=== PATIENT | female | born 1960 | race Caucasian/White ===

== ENCOUNTER 2018-03-12 11:44 | Emergency (ER) | payer MEDICARE, OTHER, SELFPAY ==
[2018-03-12 11:54] VITALS: BP 128/85; PULSE 79; RESP 15; TEMP 37; O2SAT 96; BMI 32.5
--- NOTE | 2018-03-12 12:06 | ED.CHESTPAIN ---
HPI - Chest Pain <Alisson Anderson PA-C - Last Filed: 03/12/18 14:11> General Chief Complaint: Chest Pain Stated Complaint: THINKS THERE'S A CLOT IN LEFT LEG Time Seen by Provider: 03/12/18 12:06 Source: patient Mode of arrival: ambulatory Limitations: no limitations History of Present Illness HPI narrative: This 57-year-old female comes in today mainly due to worsening of her chronic leg pain on the left side. She states she has had pain in both lower extremities ongoing for about 15 years, for the last several feels like band like pain around her calves. In the last few days to few weeks however, she states that the pain in her left calf has been worse, and also in the [place]. She has not noted new swelling. She states that the pain is fairly constant, may be somewhat worse with walking. She states that she has been walking on trails and on the beach more, but pain had worsened before that. Denies any falls or other trauma. She denies any dyspnea. No recent surgery. Last extended travel was several months ago. She states she has had sinus symptoms for years and has had a cold with some cough but no wheeze for several weeks. She has not had fever. She states she has had left shoulder and arm pain ongoing for at least a month. She states that this occurs when she is sitting. She cannot say how long it lasts, maybe up to an hour. 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 It is not exertional. She points to the left lateral bicep area as the pain source, and states it radiates up into her shoulder and into the chest at times. She denies any dyspnea with this. She denies any lightheadedness, nausea, abdominal pain, sweats, or other new symptoms correlating with that. She states that in the left agu[place]era she has noticed increase in a rash over the last few days which also concerned her. Notice is much more when sitting in front of the heater. She does admit that she has had problems with left hip pain in the past as well and has done physical therapy. Again denies any new injury Related Data Previous Rx's Medication Instructions Recorded meloxicam 7.5 mg PO DAILY #10 tab 03/12/18 Allergies Allergy/AdvReac Type Severity Reaction Status Date / Time ciprofloxacin [From CIPRO] Allergy Unknown Verified 03/12/18 11:54 Review of Systems <Alisson Anderson PA-C - Last Filed: 03/12/18 14:11> Review of Systems All systems reviewed & are unremarkable except as noted in HPI and below PFSH <MADELINE Painter Last Filed: 03/12/18 14:11> Comment: Patient also uses [facility] regularly Exam <MADELINE Painter Last Filed: 03/12/18 14:11> Narrative Exam Narrative: GENERAL APPEARANCE: Patient sitting comfortably, in no distress. HEENT: PERRL, EOMI, normal oropharynx NECK/THYROID: Neck supple, no JVD. LUNGS: Coarse breath sounds with some faint expiratory wheezes, no crackles CHEST: No TTP HEART: Regular rate and rhythm without murmur, normal S1, S2, no S3 or S4. ABDOMEN: Soft, NT, ND, + BS x 4 quadrants EXTREMITIES: No cyanosis or edema. Ft are warm and pink. There are numerous small varicosities bilaterally, more pronounced on the left. There is some brownish reticular skin discoloration inferior border and inferior medial to the left knee, minimal on the right. Moderate tenderness over the left calf and also over the left lateral aguilera. NEUROLOGIC: Alert and oriented, normal speech, and coordination. MS: Tender over the left lateral biceps midline and with resisted biceps range of motion Initial Vital Signs Initial Vital Signs: Vital Signs Temperature 98.6 F 03/12/18 11:54 Pulse Rate 79 03/12/18 11:54 Respiratory Rate 15 03/12/18 11:54 Blood Pressure 128/85 03/12/18 11:54 Pulse Oximetry 96 03/12/18 11:54 <Maureen Reyes DO - Last Filed: 03/13/18 14:43> Initial Vital Signs Initial Vital Signs: Vital Signs Temperature 98.6 F 03/12/18 11:54 Pulse Rate 79 03/12/18 11:54 Respiratory Rate 15 03/12/18 11:54 Blood Pressure 128/85 03/12/18 11:54 Pulse Oximetry 96 03/12/18 11:54 Scores <MADELINE Painter Last Filed: 03/12/18 14:11> PERC Score Age greater than or equal to 50 years: Yes Heart rate greater than or equal to 100 bpm: No Room Air O2 Sat less than 95%: No Unilateral leg swelling: No Recent trauma or surgery: No Hemoptysis: No Prior PE or DVT: No Hormone Use: No Total PERC Score: 1 Course <MADELINE Painter Last Filed: 03/12/18 14:11> Orders Ordered: ED Orders 03/12/18 12:23 periph venous low extrem lt Stat XR chest 1V Stat 03/12/18 12:40 Complete Blood Count AUTO DIFF Stat Comprehensive Metabolic Panel Stat D Dimer Stat Partial Thromboplastin Time Stat Prothrombin Time INR Stat Troponin & CK Cardiac Panel Stat Vital Signs - 8 hr 03/12/18 11:54 03/12/18 12:33 03/12/18 13:30 Temperature 98.6 F Pulse Rate 79 82 70 Respiratory Rate 15 26 H 15 Blood Pressure 128/85 Blood Pressure [Left Arm] 124/90 123/76 Pulse Oximetry 96 96 95 <Maureen Reyes DO - Last Filed: 03/13/18 14:43> Orders Ordered: ED Orders 03/12/18 12:23 perip venous low extrem lt Stat XR chest 1V Stat 03/12/18 12:40 Complete Blood Count AUTO DIFF Stat Comprehensive Metabolic Panel Stat D Dimer Stat Partial Thromboplastin Time Stat Prothrombin Time INR Stat Troponin & CK Cardiac Panel Stat Vital Signs - 8 hr 03/12/18 11:54 03/12/18 12:33 03/12/18 13:30 Temperature 98.6 F Pulse Rate 79 82 70 Respiratory Rate 15 26 H 15 Blood Pressure 128/85 Blood Pressure [Left Arm] 124/90 123/76 Pulse Oximetry 96 96 95 MDM - Chest Pain <MADELINE Painter Last Filed: 03/12/18 14:11> Lab Data Result diagrams: 03/12/18 12:40 03/12/18 12:40 Lab Results 03/12/18 03/12/18 03/12/18 Range/Units 12:40 12:40 12:40 WBC 13.1 H (4.5-11.0) X10^3/uL RBC 5.44 H (4.0-5.2) X10^6/uL Hgb 16.4 H (12.0-16.0) g/dL Hct 48.0 H (36-46) % MCV 88.2 (80-100) fL MCH 30.2 (26-34) PG MCHC 34.2 (30-36) % RDW 14.3 (11.6-14.8) % Plt Count 293 (150-400) X10^3/uL Neut % (Auto) 73.6 (50-75) % Lymph % (Auto) 20.4 L (25-40) % [place] % (Auto) 4.6 (3-14) % Eos % (Auto) 0.8 L (2-4) % Baso % (Auto) 0.6 (0-2) % Neut # (Auto) 9600 H (3030-3457) /uL PT 11.7 (10.1-12.7) SECONDS INR 1.1 (0.9-1.3) APTT 29 (26.4-36.2) SECONDS D-Dimer < 200 (<230) ng/mL Sodium 145 (137-145) mmol/L Potassium 4.4 (3.4-5.1) mmol/L Chloride 107 (98-107) mmol/L Carbon Dioxide 27 (22-32) mmol/L BUN 14 (7-17) mg/dL Creatinine 0.60 (0.52-1.04) mg/dL Estimated GFR > 60.0 (>60) mL/min BUN/Creatinine Ratio 23.3 H (6-22) Glucose 94 (70-100) mg/dL Calcium 9.5 (8.4-10.2) mg/dL Total Bilirubin 0.7 (0.2-1.3) mg/dL AST 27 (14-36) IU/L ALT 48 (9-52) IU/L Alkaline Phosphatase 52 (38-126) U/L Total Creatine Kinase 66 (30-135) U/L Troponin I < 0.012 (0.01-0.034) ng/mL Total Protein 7.3 (6.3-8.2) g/dL Albumin 4.4 (3.5-5.0) g/dL Globulin 2.9 (1.7-4.1) g/dL Albumin/Globulin Ratio 1.5 (1.0-2.8) Imaging Data Chest x-ray: Radiologist's impression: View Report History [address] [address] XRay Report Signed Patient: Sandra Grijalva MR#: [id number] : 1960 Acct:[id number] Age/Sex: 57 / F Date of Service: 03/12/18 Loc: ED Accession Number: [id number] Procedure: XR chest 1V Ordering Provider: Alisson Anderson P.A-C PROCEDURE: XR CHEST 1V INDICATIONS: cough, pain TECHNIQUE: One view of the chest was acquired. COMPARISON: None. FINDINGS: Surgical changes and devices: None. Lungs and pleura: No pleural effusions or pneumothorax. Lungs are clear. Mediastinum: Mediastinal contours appear normal. Heart size is normal. Bones and chest wall: No suspicious bony lesions. Overlying soft tissues appear unremarkable. IMPRESSION: Negative chest. No acute cardiopulmonary process is evident. Dictated by: Ronald Raymundo M.D. on 03/12/2018 at 11:52 Approved by: Ronald Raymundo M.D. on 03/12/2018 at 11:55 ECG Data Attestation: I personally reviewed and interpreted this ECG as follows: (Normal sinus rhythm with rate 68) Prior ECG tracings: not available for review <Maureen Reyes DO - Last Filed: 03/13/18 14:43> Lab Data Attestation: I reviewed the patient's lab results. Lab Results 03/12/18 03/12/18 03/12/18 Range/Units 12:40 12:40 12:40 WBC 13.1 H (4.5-11.0) X10^3/uL RBC 5.44 H (4.0-5.2) X10^6/uL Hgb 16.4 H (12.0-16.0) g/dL Hct 48.0 H (36-46) % MCV 88.2 (80-100) fL MCH 30.2 (26-34) PG MCHC 34.2 (30-36) % RDW 14.3 (11.6-14.8) % Plt Count 293 (150-400) X10^3/uL Neut % (Auto) 73.6 (50-75) % Lymph % (Auto) 20.4 L (25-40) % [place] % (Auto) 4.6 (3-14) % Eos % (Auto) 0.8 L (2-4) % Baso % (Auto) 0.6 (0-2) % Neut # (Auto) 9600 H (8924-0643) /uL PT 11.7 (10.1-12.7) SECONDS INR 1.1 (0.9-1.3) APTT 29 (26.4-36.2) SECONDS D-Dimer < 200 (<230) ng/mL Sodium 145 (137-145) mmol/L Potassium 4.4 (3.4-5.1) mmol/L Chloride 107 (98-107) mmol/L Carbon Dioxide 27 (22-32) mmol/L BUN 14 (7-17) mg/dL Creatinine 0.60 (0.52-1.04) mg/dL Estimated GFR > 60.0 (>60) mL/min BUN/Creatinine Ratio 23.3 H (6-22) Glucose 94 (70-100) mg/dL Calcium 9.5 (8.4-10.2) mg/dL Total Bilirubin 0.7 (0.2-1.3) mg/dL AST 27 (14-36) IU/L ALT 48 (9-52) IU/L Alkaline Phosphatase 52 (38-126) U/L Total Creatine Kinase 66 (30-135) U/L Troponin I < 0.012 (0.01-0.034) ng/mL Total Protein 7.3 (6.3-8.2) g/dL Albumin 4.4 (3.5-5.0) g/dL Globulin 2.9 (1.7-4.1) g/dL Albumin/Globulin Ratio 1.5 (1.0-2.8) ECG Data Attestation: I personally reviewed and interpreted this ECG as follows: Prior ECG tracings: not available for review Interpretation: Sinus rhythm rate 68 T-wave inversion noted in lead 3 no other leads no ST elevations or depressions. No priors to compare. Discharge Plan Departure Patient Disposition: Home Clinical Impression: Lower extremity pain, Bicipital tendinitis of left shoulder Discharge Date/Time: 03/12/18 14:01 Interventions: ED Discharge Assessment Last Done: 03/12/18 14:00 Instructions: Shoulder Tendinopathy, Chronic Venous Insufficiency Activity Restrictions/Additional Instructions: I have given you information on chronic pain problems, since from what you described to me I think this may be the source of at least some of your chronic pain. Please talk with your new PCP about whether further testing, such as an ultrasound of the veins, may be helpful. Please elevate your legs above your heart when you are sitting or resting as this may help with pain. You may wish to try some compression stockings again, perhaps just the commercial pest control representative knee high type from the drugstore, which may also help with comfort. I think that your arm and chest pain is likely from a tendon problem in her biceps. This could also be related to the calcium deposits and issues that you had with your shoulder previously. I have given you a small prescription of low-dose meloxicam, and anti-inflammatory to try to see if this helps with pain without upsetting your stomach. Return as we talked about if you have any acutely worsening symptoms Prescriptions: New meloxicam 7.5 mg tablet 7.5 mg PO DAILY Qty: 10 RF: 0 Referrals: Charly Agarwal MD [Non-Staff] -
--- NOTE | 2018-03-12 12:23 | DI.RAD.S_ITS ---
PROCEDURE: XR CHEST 1V INDICATIONS: cough, pain TECHNIQUE: One view of the chest was acquired. COMPARISON: None. FINDINGS: Surgical changes and devices: None. Lungs and pleura: No pleural effusions or pneumothorax. Lungs are clear. Mediastinum: Mediastinal contours appear normal. Heart size is normal. Bones and chest wall: No suspicious bony lesions. Overlying soft tissues appear unremarkable. IMPRESSION: Negative chest. No acute cardiopulmonary process is evident. Dictated by: Ronald Raymundo M.D. on 03/12/2018 at 11:52 Approved by: Ronald Raymundo M.D. on 03/12/2018 at 11:55
--- NOTE | 2018-03-12 12:27 | PC.NURSE ---
Patient reports 15+ year history of bilateral leg pain. Has been given compression stockings in the past to try for pain. Over last 2 weeks pain in lower legs more frequent, keeping her up at night. New discoloration to left lower leg just below knee. Reports new left sided chest pain and left arm pain intermittently. Can't make pain better or worse.
--- NOTE | 2018-03-12 12:29 | ED_ITS ---
HPI - Chest Pain <Alisson Anderson PA-C - Last Filed: 03/12/18 14:11> General Chief Complaint: Chest Pain Stated Complaint: THINKS THERE'S A CLOT IN LEFT LEG Time Seen by Provider: 03/12/18 12:06 Source: patient Mode of arrival: ambulatory Limitations: no limitations History of Present Illness HPI narrative: This 57-year-old female comes in today mainly due to worsening of her chronic leg pain on the left side. She states she has had pain in both lower extremities ongoing for about 15 years, for the last several feels like band like pain around her calves. In the last few days to few weeks however, she states that the pain in her left calf has been worse, and also in the aguil[place]. She has not noted new swelling. She states that the pain is fairly constant, may be somewhat worse with walking. She states that she has been walking on trails and on the beach more, but pain had worsened before that. Denies any falls or other trauma. She denies any dyspnea. No recent surgery. Last extended travel was several months ago. She states she has had sinus symptoms for years and has had a cold with some cough but no wheeze for several weeks. She has not had fever. She states she has had left shoulder and arm pain ongoing for at least a month. She states that this occurs when she is sitting. She cannot say how long it lasts, maybe up to an hour. 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 It is not exertional. She points to the left lateral bicep area as the pain source , and states it radiates up into her shoulder and into the chest at times. She denies any dyspnea with this. She denies any lightheadedness, nausea, abdominal pain, sweats, or other new symptoms correlating with that. She states that in the left aguilera she has noticed increase in a rash over the last few days which also concerned her. Notice is much more when sitting in front of the heater. She does admit that she has had problems with left hip pain in the past as well and has done physical therapy. Again denies any new injury Related Data Previous Rx's Medication Instructions Recorded meloxicam 7.5 mg PO DAILY #10 tab 03/12/18 Allergies Allergy/AdvReac Type Severity Reaction Status Date / Time ciprofloxacin [From CIPRO] Allergy Unknown Verified 03/12/18 11:54 Review of Systems <Alisson Anderson PA-C - Last Filed: 03/12/18 14:11> Review of Systems All systems reviewed & are unremarkable except as noted in HPI and below PFSH <MADELINE Painter Last Filed: 03/12/18 14:11> Comment: Patient also uses [facility] regularly Exam <MADELINE Painter Last Filed: 03/12/18 14:11> Narrative Exam Narrative: GENERAL APPEARANCE: Patient sitting comfortably, in no distress. HEENT: PERRL, EOMI, normal oropharynx NECK/THYROID: Neck supple, no JVD. LUNGS: Coarse breath sounds with some faint expiratory wheezes, no crackles CHEST: No TTP HEART: Regular rate and rhythm without murmur, normal S1, S2, no S3 or S4. ABDOMEN: Soft, NT, ND, + BS x 4 quadrants EXTREMITIES: No cyanosis or edema. Ft are warm and pink. There are numerous small varicosities bilaterally, more pronounced on the left. There is some brownish reticular skin discoloration inferior border and inferior medial to the left knee, minimal on the right. Moderate tenderness over the left calf and also over the left lateral aguilera. NEUROLOGIC: Alert and oriented, normal speech, and coordination. MS: Tender over the left lateral biceps midline and with resisted biceps range of motion Initial Vital Signs Initial Vital Signs: Vital Signs Temperature 98.6 F 03/12/18 11:54 Pulse Rate 79 03/12/18 11:54 Respiratory Rate 15 03/12/18 11:54 Blood Pressure 128/85 03/12/18 11:54 Pulse Oximetry 96 03/12/18 11:54 <Maureen Reyes DO - Last Filed: 03/13/18 14:43> Initial Vital Signs Initial Vital Signs: Vital Signs Temperature 98.6 F 03/12/18 11:54 Pulse Rate 79 03/12/18 11:54 Respiratory Rate 15 03/12/18 11:54 Blood Pressure 128/85 03/12/18 11:54 Pulse Oximetry 96 03/12/18 11:54 Scores <MADELINE Painter Last Filed: 03/12/18 14:11> PERC Score Age greater than or equal to 50 years: Yes Heart rate greater than or equal to 100 bpm: No Room Air O2 Sat less than 95%: No Unilateral leg swelling: No Recent trauma or surgery: No Hemoptysis: No Prior PE or DVT: No Hormone Use: No Total PERC Score: 1 Course <MADELINE Painter Last Filed: 03/12/18 14:11> Orders Ordered: ED Orders 03/12/18 12:23 periph venous low extrem lt Stat XR chest 1V Stat 03/12/18 12:40 Complete Blood Count AUTO DIFF Stat Comprehensive Metabolic Panel Stat D Dimer Stat Partial Thromboplastin Time Stat Prothrombin Time INR Stat Troponin & CK Cardiac Panel Stat Vital Signs - 8 hr 03/12/18 11:54 03/12/18 12:33 03/12/18 13:30 Temperature 98.6 F Pulse Rate 79 82 70 Respiratory Rate 15 26 H 15 Blood Pressure 128/85 Blood Pressure [Left Arm] 124/90 123/76 Pulse Oximetry 96 96 95 <Maureen Reyes DO - Last Filed: 03/13/18 14:43> Orders Ordered: ED Orders 03/12/18 12:23 perip venous low extrem lt Stat XR chest 1V Stat 03/12/18 12:40 Complete Blood Count AUTO DIFF Stat Comprehensive Metabolic Panel Stat D Dimer Stat Partial Thromboplastin Time Stat Prothrombin Time INR Stat Troponin & CK Cardiac Panel Stat Vital Signs - 8 hr 03/12/18 11:54 03/12/18 12:33 03/12/18 13:30 Temperature 98.6 F Pulse Rate 79 82 70 Respiratory Rate 15 26 H 15 Blood Pressure 128/85 Blood Pressure [Left Arm] 124/90 123/76 Pulse Oximetry 96 96 95 MDM - Chest Pain <MADELINE Painter Last Filed: 03/12/18 14:11> Lab Data Result diagrams: 03/12/18 12:40 03/12/18 12:40 Lab Results 03/12/18 03/12/18 03/12/18 Range/Units 12:40 12:40 12:40 WBC 13.1 H (4.5-11.0) X10^3/uL RBC 5.44 H (4.0-5.2) X10^6/uL Hgb 16.4 H (12.0-16.0) g/dL Hct 48.0 H (36-46) % MCV 88.2 (80-100) fL MCH 30.2 (26-34) PG MCHC 34.2 (30-36) % RDW 14.3 (11.6-14.8) % Plt Count 293 (150-400) X10^3/uL Neut % (Auto) 73.6 (50-75) % Lymph % (Auto) 20.4 L (25-40) % [place] % (Auto) 4.6 (3-14) % Eos % (Auto) 0.8 L (2-4) % Baso % (Auto) 0.6 (0-2) % Neut # (Auto) 9600 H (6659-6048) /uL PT 11.7 (10.1-12.7) SECONDS INR 1.1 (0.9-1.3) APTT 29 (26.4-36.2) SECONDS D-Dimer < 200 (<230) ng/mL Sodium 145 (137-145) mmol/L Potassium 4.4 (3.4-5.1) mmol/L Chloride 107 (98-107) mmol/L Carbon Dioxide 27 (22-32) mmol/L BUN 14 (7-17) mg/dL Creatinine 0.60 (0.52-1.04) mg/dL Estimated GFR > 60.0 (>60) mL/min BUN/Creatinine Ratio 23.3 H (6-22) Glucose 94 (70-100) mg/dL Calcium 9.5 (8.4-10.2) mg/dL Total Bilirubin 0.7 (0.2-1.3) mg/dL AST 27 (14-36) IU/L ALT 48 (9-52) IU/L Alkaline Phosphatase 52 (38-126) U/L Total Creatine Kinase 66 (30-135) U/L Troponin I < 0.012 (0.01-0.034) ng/mL Total Protein 7.3 (6.3-8.2) g/dL Albumin 4.4 (3.5-5.0) g/dL Globulin 2.9 (1.7-4.1) g/dL Albumin/Globulin Ratio 1.5 (1.0-2.8) Imaging Data Chest x-ray: Radiologist's impression: View Report History [address] [address] XRay Report Signed Patient: Sandra Grijalva MR#: [id number] : 1960 Acct:[id number] Age/Sex: 57 / F Date of Service: 03/12/18 Loc: ED Accession Number: [id number] Procedure: XR chest 1V Ordering Provider: Alisson Anderson P.A-C PROCEDURE: XR CHEST 1V INDICATIONS: cough, pain TECHNIQUE: One view of the chest was acquired. COMPARISON: None. FINDINGS: Surgical changes and devices: None. Lungs and pleura: No pleural effusions or pneumothorax. Lungs are clear. Mediastinum: Mediastinal contours appear normal. Heart size is normal. Bones and chest wall: No suspicious bony lesions. Overlying soft tissues appear unremarkable. IMPRESSION: Negative chest. No acute cardiopulmonary process is evident. Dictated by: Ronald Raymundo M.D. on 03/12/2018 at 11:52 Approved by: Ronald Raymundo M.D. on 03/12/2018 at 11:55 ECG Data Attestation: I personally reviewed and interpreted this ECG as follows: (Normal sinus rhythm with rate 68) Prior ECG tracings: not available for review <Maureen Reyes DO - Last Filed: 03/13/18 14:43> Lab Data Attestation: I reviewed the patient's lab results. Lab Results 03/12/18 03/12/18 03/12/18 Range/Units 12:40 12:40 12:40 WBC 13.1 H (4.5-11.0) X10^3/uL RBC 5.44 H (4.0-5.2) X10^6/uL Hgb 16.4 H (12.0-16.0) g/dL Hct 48.0 H (36-46) % MCV 88.2 (80-100) fL MCH 30.2 (26-34) PG MCHC 34.2 (30-36) % RDW 14.3 (11.6-14.8) % Plt Count 293 (150-400) X10^3/uL Neut % (Auto) 73.6 (50-75) % Lymph % (Auto) 20.4 L (25-40) % [place] % (Auto) 4.6 (3-14) % Eos % (Auto) 0.8 L (2-4) % Baso % (Auto) 0.6 (0-2) % Neut # (Auto) 9600 H (9784-9691) /uL PT 11.7 (10.1-12.7) SECONDS INR 1.1 (0.9-1.3) APTT 29 (26.4-36.2) SECONDS D-Dimer < 200 (<230) ng/mL Sodium 145 (137-145) mmol/L Potassium 4.4 (3.4-5.1) mmol/L Chloride 107 (98-107) mmol/L Carbon Dioxide 27 (22-32) mmol/L BUN 14 (7-17) mg/dL Creatinine 0.60 (0.52-1.04) mg/dL Estimated GFR > 60.0 (>60) mL/min BUN/Creatinine Ratio 23.3 H (6-22) Glucose 94 (70-100) mg/dL Calcium 9.5 (8.4-10.2) mg/dL Total Bilirubin 0.7 (0.2-1.3) mg/dL AST 27 (14-36) IU/L ALT 48 (9-52) IU/L Alkaline Phosphatase 52 (38-126) U/L Total Creatine Kinase 66 (30-135) U/L Troponin I < 0.012 (0.01-0.034) ng/mL Total Protein 7.3 (6.3-8.2) g/dL Albumin 4.4 (3.5-5.0) g/dL Globulin 2.9 (1.7-4.1) g/dL Albumin/Globulin Ratio 1.5 (1.0-2.8) ECG Data Attestation: I personally reviewed and interpreted this ECG as follows: Prior ECG tracings: not available for review Interpretation: Sinus rhythm rate 68 T-wave inversion noted in lead 3 no other leads no ST elevations or depressions. No priors to compare. Discharge Plan Departure Patient Disposition: Home Clinical Impression: Lower extremity pain, Bicipital tendinitis of left shoulder Discharge Date/Time: 03/12/18 14:01 Interventions: ED Discharge Assessment Last Done: 03/12/18 14:00 Instructions: Shoulder Tendinopathy, Chronic Venous Insufficiency Activity Restrictions/Additional Instructions: I have given you information on chronic pain problems, since from what you described to me I think this may be the source of at least some of your chronic pain. Please talk with your new PCP about whether further testing, such as an ultrasound of the veins, may be helpful. Please elevate your legs above your heart when you are sitting or resting as this may help with pain. You may wish to try some compression stockings again, perhaps just the net application architect knee high type from the drugstore, which may also help with comfort. I think that your arm and chest pain is likely from a tendon problem in her biceps. This could also be related to the calcium deposits and issues that you had with your shoulder previously. I have given you a small prescription of low -dose meloxicam, and anti-inflammatory to try to see if this helps with pain without upsetting your stomach. Return as we talked about if you have any acutely worsening symptoms Prescriptions: New meloxicam 7.5 mg tablet 7.5 mg PO DAILY Qty: 10 RF: 0 Referrals: Charly Agarwal MD [Non-Staff] -
[2018-03-12 12:33] VITALS: BP 124/90; PULSE 82; RESP 26; O2SAT 96
[2018-03-12 12:52] LABS: Add Manual Diff / Slide Review NO; Basophils Percent Auto 0.6 % (0-2); Eosinophils Percent Auto 0.8 % (2-4); Hemoglobin 16.4 g/dL (12.0-16.0); Lymphocytes Percent Auto 20.4 % (25-40); Mean Corpuscular HGB Conc 34.2 % (30-36); Mean Corpuscular Hemoglobin 30.2 PG (26-34); Mean Corpuscular Volume 88.2 fL (80-100); Monocytes Percent Auto 4.6 % (3-14); Neutrophils Absolute Auto 9600 /uL (3000-5900); Neutrophils Percent Auto 73.6 % (50-75); Platelet Count 293 X10^3/uL (150-400); Red Blood Cell Count 5.44 X10^6/uL (4.0-5.2); Red Cell Distribution Width 14.3 % (11.6-14.8); White Blood Cell Count 13.1 X10^3/uL (4.5-11.0)
[2018-03-12 12:58] LABS: INR 1.1 (0.9-1.3); Prothrombin Time 11.7 SECONDS (10.1-12.7)
[2018-03-12 13:00] LABS: PTT Partial Thromboplastin Tim 29 SECONDS (26.4-36.2)
[2018-03-12 13:02] LABS: Alanine Aminotransferase 48 IU/L (9-52); Albumin 4.4 g/dL (3.5-5.0); Albumin Globulin Ratio 1.5 (1.0-2.8); Alkaline Phosphatase 52 U/L (38-126); Aspartate Aminotransferase 27 IU/L (14-36); BUN Creatinine Ratio 23.3 (6-22); Bilirubin Total 0.7 mg/dL (0.2-1.3); Blood Urea Nitrogen 14 mg/dL (7-17); Calcium 9.5 mg/dL (8.4-10.2); Carbon Dioxide 27 mmol/L (22-32); Chloride 107 mmol/L (98-107); Creatine Kinase 66 U/L (30-135); Estimated Glomerular Filt Rate > 60.0 mL/min (>60); Globulin 2.9 g/dL (1.7-4.1); Glucose 94 mg/dL (70-100); HEMOLYSIS 15 (0-50); Potassium 4.4 mmol/L (3.4-5.1); Sodium 145 mmol/L (137-145); Total Protein 7.3 g/dL (6.3-8.2)
[2018-03-12 13:14] LABS: Troponin I < 0.012 ng/mL (0.01-0.034)
[2018-03-12 13:22] LABS: D Dimer < 200 ng/mL (<230)
[2018-03-12 13:30] VITALS: BP 123/76; PULSE 70; RESP 15; O2SAT 95
== END 2018-03-12 14:01 | disposition home or self-care (01) ==
PROVIDERS: Emergency Provider Internal Medicine
DX: M79.605 Pain in left leg (principal); R07.89 Other chest pain; M75.22 Bicipital tendinitis, left shoulder
CPT/HCPCS: 71045; 80053; 82550; 82553; 84484; 85025; 85379; 85610; 85730; 93005; 93010; 93041; 99283; 99285

== ENCOUNTER → 2018-10-16 11:30 | Outpatient (CLI) | payer MEDICARE, OTHER, SELFPAY | PROVIDERS: PCP Internal Medicine; Visit Provider Internal Medicine | DX: Z12.31 Encounter for screening mammogram for malignant neoplasm of breast (principal) | CPT/HCPCS: 77063; 77067 ==

== ENCOUNTER → 2018-11-13 08:43 | Outpatient (CLI) | payer MEDICARE, OTHER, SELFPAY ==
--- NOTE | 2018-11-13 | DI.MG.S_ITS ---
BILATERAL DIGITAL DIAGNOSTIC MAMMOGRAM 3D/2D: 11/13/2018 CLINICAL: Patient reports diffuse right breast pain for the last 3 months that covers the entire right breast. Patient was reportedly hiking using walking sticks and started noticing right arm/shoulder pain originally that radiated throughout the right breast and is now radiating across the chest into the upper inner quadrant of the left breast. A clinical breast exam was reportedly done and nothing was reportedly identified per patient. Family history of breast cancer. Comparison is made to exams dated: 06/19/2017 mammogram - [facility], 03/08/2016 mammogram, 11/01/2014 mammogram, and 09/29/2014 mammogram - [facility]. The tissue of both breasts is heterogeneously dense. This may lower the sensitivity of mammography. There are stable-appearing postsurgical changes of the right breast with overlying linear scar marker. There is no underlying mammographic abnormality of the breasts bilaterally to explain patient's diffuse radiating bilateral breast pain. No significant masses, calcifications, or other findings are seen in either breast. IMPRESSION: 1) No mammographic abnormality to correlate with or explain the patient's reported diffuse bilateral breast pain. As the pain is diffuse and bilateral, a targeted diagnostic ultrasound could not be performed for further evaluation. Recommend clinical follow-up for further evaluation and management. Consider breast MRI if there is continued clinical concern. 2) There is no mammographic evidence of malignancy. Return to annual mammogram screening schedule is recommended. The patient is advised to monitor the area and to return sooner for reevaluation if she feels anything grow or change in her breasts. This exam was interpreted at Station ID: [id number]. NOTE: For mammograms, a report in lay terms will be sent to the patient. Approximately 15% of breast malignancies will not be visualized mammographically. In the management of a palpable breast mass, a negative mammogram must not discourage biopsy of a clinically suspicious lesion. Electronically Signed By: Nnamdi Chapa M.D. ecl/:11/13/2018 10:13:33 letter sent: Clinical Evaluation ACR BI-RADS Category 2: Benign Finding(s) [id number]
== END ==
PROVIDERS: PCP Internal Medicine; Visit Provider Internal Medicine
DX: R92.8 Other abnormal and inconclusive findings on diagnostic imaging of breast (principal); N64.4 Mastodynia; Z80.3 Family history of malignant neoplasm of breast
CPT/HCPCS: 77066; G0279

== ENCOUNTER → 2019-04-16 14:07 | Outpatient (CLI) | payer OTHER, SELFPAY ==
--- NOTE | 2019-04-16 | DI.US.S_ITS ---
PROCEDURE: US PELVIC COMPLETE INDICATIONS: PELVIC PAIN TECHNIQUE: Real-time scanning was performed of the pelvic organs, with image documentation. Additional endovaginal scanning was necessary due to incomplete visualization of the adnexal and endometrial structures by transabdominal scanning. COMPARISON: None. FINDINGS: Transabdominal scanning: Limited scanning through the kidneys demonstrates mild appearance of bilateral hydronephrosis. No pathologic free abdominal or pelvic fluid. Endovaginal scanning: Uterus: Uterus has been removed Ovaries: The ovaries are not visualized. IMPRESSION: 1. Ovaries are not visualized. Adnexal regions are unremarkable. 2. Bilateral hydronephrosis. As clinical indicated, abdominal ultrasound or CT pelvis may be obtained for further evaluation. Dictated by: Aicha Wilson M.D. on 04/16/2019 at 16:56 Approved by: Aicha Wilson M.D. on 04/16/2019 at 16:58
== END ==
PROVIDERS: PCP Internal Medicine; Visit Provider Internal Medicine
DX: R10.2 Pelvic and perineal pain (principal); N13.30 Unspecified hydronephrosis
CPT/HCPCS: 76830; 76856

== ENCOUNTER 2019-07-13 17:34 | Emergency (ER) | payer OTHER, SELFPAY ==
[2019-07-13 17:40] VITALS: PULSE 76; RESP 18; TEMP 36.6; O2SAT 99; BMI 27.3
[2019-07-13 19:52] VITALS: BP 162/90
[2019-07-13] MEDS: ONDANSETRON 4 MG ODT SL (19:57)
[2019-07-13 20:05] LABS: Add Manual Diff / Slide Review NO; Basophils Absolute Auto 100 /uL (0-100); Basophils Percent Auto 0.5 % (0-2); Eosinophils Absolute Auto 0 /uL (0-450); Eosinophils Percent Auto 0.2 % (2-4); Hematocrit 45.6 % (36-46); Hemoglobin 15.7 g/dL (12.0-16.0); Lymphocytes Absolute Auto 2000 /uL (1100-4500); Lymphocytes Percent Auto 18.5 % (25-40); Mean Corpuscular HGB Conc 34.4 % (30-36); Mean Corpuscular Hemoglobin 30.1 PG (26-34); Mean Corpuscular Volume 87.6 fL (80-100); Monocytes Absolute Auto 400 /uL (0-900); Monocytes Percent Auto 3.5 % (3-14); Neutrophils Absolute Auto 8200 /uL (1500-7000); Neutrophils Percent Auto 77.3 % (50-75); Platelet Count 293 X10^3/uL (150-400); Red Blood Cell Count 5.21 X10^6/uL (4.0-5.2); Red Cell Distribution Width 14.3 % (11.6-14.8); White Blood Cell Count 10.6 X10^3/uL (4.5-11.0)
[2019-07-13 20:18] LABS: Alanine Aminotransferase 26 IU/L (<35); Albumin 4.5 g/dL (3.5-5.0); Albumin Globulin Ratio 1.6 (1.0-2.8); Alkaline Phosphatase 59 U/L (38-126); Amylase 72 U/L (30-110); Aspartate Aminotransferase 24 IU/L (14-36); Bilirubin Total 0.9 mg/dL (0.2-1.3); Blood Urea Nitrogen 12 mg/dL (7-17); Calcium 9.8 mg/dL (8.4-10.2); Carbon Dioxide 26 mmol/L (22-32); Chloride 106 mmol/L (98-107); Estimated Glomerular Filt Rate > 60.0 mL/min (>60); Globulin 2.9 g/dL (1.7-4.1); Glucose 90 mg/dL (80-110); HEMOLYSIS < 15 (0-50); Lipase 110 U/L (23-300); Sodium 141 mmol/L (137-145); Total Protein 7.4 g/dL (6.3-8.2)
[2019-07-13 20:19] LABS: Magnesium 1.9 mg/dL (1.6-2.3)
[2019-07-13 20:24] LABS: UR Morphine/Opiate cutoff 300 Negative (Negative); Ur Creatinine Normal (Normal); Ur Specific Gravity Normal (Normal); Urine Amphetamines Negative (Negative); Urine Barbiturates Negative (Negative); Urine Benzodiazepines Negative (Negative); Urine Cocaine Negative (Negative); Urine MDMA Negative (Negative); Urine Methadone Negative (Negative); Urine Methamphetamines Negative (Negative); Urine Oxycodone Negative (Negative); Urine Phencyclidine Negative (Negative); Urine Tetrahydrocannabinol Positive (Negative); Urine Tricyclic Antidepressant Negative (Negative); Urine pH Normal (Normal)
[2019-07-13 20:27] LABS: RBC Urine 0-1/HPF (0-5/HPF); WBC Urine 5-10/HPF (0-5/HPF)
[2019-07-13 20:28] LABS: Amorphous Sediment Urine 1+; Bacteria Urine Few (2-10); Culture Indicated Urine Specimen Cultured; Mucus Urine 2+ (Negative); Squamous Epithelial Cell Urine 0-1 /HPF (0-5/HPF)
--- NOTE | 2019-07-13 20:40 | ED_ITS ---
HPI - Nausea/Vomiting/Diarrhea <WYATT Headley - Last Filed: 07/13/19 21:03> General Chief complaint: Nausea/Vomiting/Diarrhea Stated complaint: Nausea, Can't Keep Anything Down Time Seen by Provider: 07/13/19 18:58 Source: patient and family Mode of arrival: Ambulatory Limitations: no limitations History of Present Illness HPI Narrative: The patient is a 59-year-old female current smoker with history of UTIs who present with a chief complaint of nausea for the past year. She sta holley that she has been nauseous for over a year, but today she started vomiting. She denies any specific abdominal pain. She has not taken anything to feel better at home. She denies any fevers. She denies any chest pain or shortness of breath. She states that she has had recent urinary tract infections but that she does not have 1 right now. She states she does not have the flu. She denies any current dysuria urgency or frequency. She states that she does not need to be tested for the flu, initially declined blood pressure readings in the emergency department. She states that her last bowel movement was today and normal. She states she is passing gas. Related Data Previous Rx's Medication Instructions Recorded meloxicam 7.5 mg PO DAILY #10 tab 03/12/18 nitrofurantoin monohyd/m-cryst 100 mg PO Q12H 7 Days #14 cap 07/13/19 [Macrobid] ondansetron 4 mg PO Q6H PRN #20 tab 07/13/19 Allergies Allergy/AdvReac Type Severity Reaction Status Date / Time ciprofloxacin [From CIPRO] Allergy Unknown Verified 07/13/19 17:40 Review of Systems <WYATT Headley - Last Filed: 07/13/19 21:03> Review of Systems Narrative: GENERAL: See HPI HEENT: Denies sinus pain, ear pain, sore throat, difficulty swallowing, dizziness. RESPIRATORY: Denies dyspnea, cough, wheezing, hemoptysis, sputum. CARDIOVASCULAR: Denies chest pain, palpitations, orthopnea, edema, GASTROINTESTINAL: See HPI : See HPI MUSCULOSKELETAL: denies weakness, joint pain, or bony pain SKIN: Denies rash, skin lesions, or other NEUROLOGIC: Denies weakness, headache, numbness, change in speech, confusion, seizures, incoordination. PSYCHIATRIC: No concerning psychosocial issues. 12 point review of systems is negative except for those stated above Patient History <WYATT Headley - Last Filed: 07/13/19 21:03> Medical History Chronic pain of lower extremity, bilateral (Chronic) Migraine (Chronic) PTSD (post-traumatic stress disorder) (Chronic) Surgical History Status post breast lumpectomy (Resolved) Status post hysterectomy (Resolved) Social History Smoking Status: Current every day smoker Smoking Status: Current every day smoker alcohol intake frequency: a few times a month Substance Use Type: marijuana Exam <WYATT Headley - Last Filed: 07/13/19 21:03> Narrative Exam Narrative: GENERAL: This is a well-nourished, well-developed patient, in no acute distress HEAD: Atraumatic. Normocephalic. No temporal or scalp tenderness. EYES: Pupils equal round and reactive. Extraocular motions intact. No scleral icterus. No injection or drainage. ENT: Nose without bleeding, purulent drainage or septal hematoma. Throat without erythema, tonsillar hypertrophy or exudate. Uvula midline. Airway patent. Moist mucous membranes noted. NECK: Trachea midline. No JVD or lymphadenopathy. Supple, nontender, no me ningeal signs. CARDIOVASCULAR: Regular rate and rhythm RESPIRATORY: Clear to auscultation. Breath sounds equal bilaterally. No wheezes, rales, or rhonchi. No cough. No increased respiratory effort. No accessory muscle use. GASTROINTESTINAL: Abdomen soft, non-tender, nondistended. No hepato-spleno megaly, or palpable masses. No guarding. Active bowel sounds all 4 quadrants. No pain at McBurney's point. Negative Odell sign. EXTREMITIES: No clubbing, cyanosis, or edema. No joint tenderness, effusion, or edema noted. BACK: Nontender without deformity or crepitance. No flank tenderness. NEURO: AOx3. SKIN: No rash or erythema on visible skin Initial Vital Signs Initial Vital Signs: Vital Signs Temperature 97.9 F 07/13/19 17:40 Pulse Rate 76 07/13/19 17:40 Respiratory Rate 18 07/13/19 17:40 Pulse Oximetry 99 07/13/19 17:40 <Richie Toney DO - Last Filed: 07/14/19 03:05> Initial Vital Signs Initial Vital Signs: Vital Signs Temperature 97.9 F 07/13/19 17:40 Pulse Rate 76 07/13/19 17:40 Respiratory Rate 18 07/13/19 17:40 Pulse Oximetry 99 07/13/19 17:40 Course <WYATT Headley - Last Filed: 07/13/19 21:03> Orders Ordered: ED Orders 07/13/19 19:50 Urine Culture Stat Urine Drug Screen, Rapid Stat Urine Microscopic Stat 07/13/19 19:58 Amylase Stat Complete Blood Count AUTO DIFF Stat Comprehensive Metabolic Panel Stat Lipase Stat Magnesium Stat Discontinued Medications Nitrofurantoin Macrocrystals (Macrobid 100 Mg Capsule) 100 mg PO NOW ONE Stop: 07/13/19 20:58 Last Admin: 07/13/19 21:08 Dose: 100 mg Documented by: ZARA Ondansetron HCl (Zofran Odt) 4 mg SL NOW ONE Stop: 07/13/19 19:17 Last Admin: 07/13/19 19:57 Dose: 4 mg Documented by: ZARA Ondansetron HCl (Zofran Odt Prepack) 1 bottle MISC SEEINSTR ONE Stop: 07/13/19 20:59 Last Admin: 07/13/19 21:08 Dose: 1 bottle Documented by: ZARA Vital Signs Vital signs: Vital Signs - 8 hr 07/13/19 19:52 07/13/19 21:13 Pulse Rate 88 Respiratory Rate 12 Blood Pressure 162/90 H Blood Pressure [Right Arm] 162/90 H Pulse Oximetry 98 <Richie Toney DO - Last Filed: 07/14/19 03:05> Orders Ordered: ED Orders 07/13/19 19:50 Urine Culture Stat Urine Drug Screen, Rapid Stat Urine Microscopic Stat 07/13/19 19:58 Amylase Stat Complete Blood Count AUTO DIFF Stat Comprehensive Metabolic Panel Stat Lipase Stat Magnesium Stat Discontinued Medications Nitrofurantoin Macrocrystals (Macrobid 100 Mg Capsule) 100 mg PO NOW ONE Stop: 07/13/19 20:58 Last Admin: 07/13/19 21:08 Dose: 100 mg Documented by: ZARA Ondansetron HCl (Zofran Odt) 4 mg SL NOW ONE Stop: 07/13/19 19:17 Last Admin: 07/13/19 19:57 Dose: 4 mg Documented by: ZARA Ondansetron HCl (Zofran Odt Prepack) 1 bottle MISC SEEINSTR ONE Stop: 07/13/19 20:59 Last Admin: 07/13/19 21:08 Dose: 1 bottle Documented by: ZARA Vital Signs Vital signs: Vital Signs - 8 hr 07/13/19 19:52 07/13/19 21:13 Pulse Rate 88 Respiratory Rate 12 Blood Pressure 162/90 H Blood Pressure [Right Arm] 162/90 H Pulse Oximetry 98 MDM - Nausea/Vomiting/Diarrhea <WYATT Headley - Last Filed: 07/13/19 21:03> Lab Data Result diagrams: 07/13/19 19:58 07/13/19 19:58 Labs: Lab Results 07/13/19 07/13/19 07/13/19 Range/Units 19:50 19:50 19:58 WBC 10.6 (4.5-11.0) X10^3/uL RBC 5.21 H (4.0-5.2) X10^6/uL Hgb 15.7 (12.0-16.0) g/dL Hct 45.6 (36-46) % MCV 87.6 (80-100) fL MCH 30.1 (26-34) PG MCHC 34.4 (30-36) % RDW 14.3 (11.6-14.8) % Plt Count 293 (150-400) X10^3/uL Neut % (Auto) 77.3 H (50-75) % Lymph % (Auto) 18.5 L (25-40) % [place] % (Auto) 3.5 (3-14) % Eos % (Auto) 0.2 L (2-4) % Baso % (Auto) 0.5 (0-2) % Neut # (Auto) 8200 H (9454-1296) /uL Lymph # (Auto) 2000 (9005-4329) /uL [place] # (Auto) 400 (0-900) /uL Eos # (Auto) 0 (0-450) /uL Baso # (Auto) 100 (0-100) /uL Sodium (137-145) mmol/L Potassium (3.4-5.1) mmol/L Chloride (98-107) mmol/L Carbon Dioxide (22-32) mmol/L BUN (7-17) mg/dL Creatinine (0.52-1.04) mg/dL Estimated GFR (>60) mL/min BUN/Creatinine Ratio (6-22) Glucose (80-110) mg/dL Calcium (8.4-10.2) mg/dL Magnesium (1.6-2.3) mg/dL Total Bilirubin (0.2-1.3) mg/dL AST (14-36) IU/L ALT (<35) IU/L Alkaline Phosphatase (38-126) U/L Total Protein (6.3-8.2) g/dL Albumin (3.5-5.0) g/dL Globulin (1.7-4.1) g/dL Albumin/Globulin Ratio (1.0-2.8) Amylase (30-110) U/L Lipase (23-300) U/L Urine RBC 0-1/hpf (0-5/HPF) Urine WBC 5-10/hpf H (0-5/HPF) Ur Squamous Epith Cells 0-1 /hpf (0-5/HPF) Amorphous Sediment 1+ Urine Bacteria Few (2-10) H (None) Urine Mucus 2+ H (Negative) Ur Culture Indicated? Specimen cultured U Opiates 300ng/mL cut Negative (Negative) Ur Oxycodone Screen Negative (Negative) Urine Methadone Screen Negative (Negative) Ur Barbiturates Screen Negative (Negative) U Tricyclic Antidepress Negative (Negative) Ur Phencyclidine Scrn Negative (Negative) Ur Amphetamines Screen Negative (Negative) U Methamphetamines Scrn Negative (Negative) Ur MDMA Scrn (Ecstasy) Negative (Negative) U Benzodiazepines Scrn Negative (Negative) Urine Cocaine Screen Negative (Negative) U Marijuana (THC) Screen Positive H (Negative) 07/13/19 07/13/19 Range/Units 19:58 19:58 WBC (4.5-11.0) X10^3/uL RBC (4.0-5.2) X10^6/uL Hgb (12.0-16.0) g/dL Hct (36-46) % MCV (80-100) fL MCH (26-34) PG MCHC (30-36) % RDW (11.6-14.8) % Plt Count (150-400) X10^3/uL Neut % (Auto) (50-75) % Lymph % (Auto) (25-40) % [place] % (Auto) (3-14) % Eos % (Auto) (2-4) % Baso % (Auto) (0-2) % Neut # (Auto) (0109-3111) /uL Lymph # (Auto) (7976-4216) /uL [place] # (Auto) (0-900) /uL Eos # (Auto) (0-450) /uL Baso # (Auto) (0-100) /uL Sodium 141 (137-145) mmol/L Potassium 4.0 (3.4-5.1) mmol/L Chloride 106 (98-107) mmol/L Carbon Dioxide 26 (22-32) mmol/L BUN 12 (7-17) mg/dL Creatinine 0.60 (0.52-1.04) mg/dL Estimated GFR > 60.0 (>60) mL/min BUN/Creatinine Ratio 20.0 (6-22) Glucose 90 (80-110) mg/dL Calcium 9.8 (8.4-10.2) mg/dL Magnesium 1.9 (1.6-2.3) mg/dL Total Bilirubin 0.9 (0.2-1.3) mg/dL AST 24 (14-36) IU/L ALT 26 (<35) IU/L Alkaline Phosphatase 59 (38-126) U/L Total Protein 7.4 (6.3-8.2) g/dL Albumin 4.5 (3.5-5.0) g/dL Globulin 2.9 (1.7-4.1) g/dL Albumin/Globulin Ratio 1.6 (1.0-2.8) Amylase 72 (30-110) U/L Lipase 110 (23-300) U/L Urine RBC (0-5/HPF) Urine WBC (0-5/HPF) Ur Squamous Epith Cells (0-5/HPF) Amorphous Sediment Urine Bacteria (None) Urine Mucus (Negative) Ur Culture Indicated? U Opiates 300ng/mL cut (Negative) Ur Oxycodone Screen (Negative) Urine Methadone Screen (Negative) Ur Barbiturates Screen (Negative) U Tricyclic Antidepress (Negative) Ur Phencyclidine Scrn (Negative) Ur Amphetamines Screen (Negative) U Methamphetamines Scrn (Negative) Ur MDMA Scrn (Ecstasy) (Negative) U Benzodiazepines Scrn (Negative) Urine Cocaine Screen (Negative) U Marijuana (THC) Screen (Negative) Urine Dip Bedside Urine Glucose Negative Bedside Urine Bilirubin - Negative Bedside Urine Ketone +++ 80 Urine Specific Randall 1.030 Bedside Urine Occult Blood +/- Bedside Urine pH 6.0 Bedside Urine Protein +/- 15 Bedside Urine Urobilinogen - Negative Bedside Urine Nitrite - Negative Bedside Urine Leukocytes - Negative Esterase MDM Narrative Medical decision making narrative: The patient is a 59-year-old female who presents with a chief complaint of nausea for the past year and vomiting today. Of note she did not vomit throughout her stay in the emergency department. She is hemodynamically stable on exam, his no abdominal pain and is afebrile. She is not tachycardic, not hypotensive, has moist mucous membranes. Her abdominal lab work is grossly normal. She does have findings consistent with urinary tract infection, so I discussed starting her on Macrobid. Initially I offered Bactrim, but she states she reacts negatively to this. She was able to tolerate p.o. fluids and felt much improved after single dose of Zofran, thus I gave her take-home pack and sent a prescription in. I discussed at length the importance of coming back to the emergency department for any acute concerns such as concern of heart attack, stroke, inability keep down fluids abdominal pain with fever. Patient has no questions or concerns upon discharge and states understanding of return precautions as well as follow-up care. <Richie Toney, DO - Last Filed: 07/14/19 03:05> Lab Data Labs: Lab Results 07/13/19 07/13/19 07/13/19 Range/Units 19:50 19:50 19:58 WBC 10.6 (4.5-11.0) X10^3/uL RBC 5.21 H (4.0-5.2) X10^6/uL Hgb 15.7 (12.0-16.0) g/dL Hct 45.6 (36-46) % MCV 87.6 (80-100) fL MCH 30.1 (26-34) PG MCHC 34.4 (30-36) % RDW 14.3 (11.6-14.8) % Plt Count 293 (150-400) X10^3/uL Neut % (Auto) 77.3 H (50-75) % Lymph % (Auto) 18.5 L (25-40) % [place] % (Auto) 3.5 (3-14) % Eos % (Auto) 0.2 L (2-4) % Baso % (Auto) 0.5 (0-2) % Neut # (Auto) 8200 H (0083-9002) /uL Lymph # (Auto) 2000 (0009-1748) /uL [place] # (Auto) 400 (0-900) /uL Eos # (Auto) 0 (0-450) /uL Baso # (Auto) 100 (0-100) /uL Sodium (137-145) mmol/L Potassium (3.4-5.1) mmol/L Chloride (98-107) mmol/L Carbon Dioxide (22-32) mmol/L BUN (7-17) mg/dL Creatinine (0.52-1.04) mg/dL Estimated GFR (>60) mL/min BUN/Creatinine Ratio (6-22) Glucose (80-110) mg/dL Calcium (8.4-10.2) mg/dL Magnesium (1.6-2.3) mg/dL Total Bilirubin (0.2-1.3) mg/dL AST (14-36) IU/L ALT (<35) IU/L Alkaline Phosphatase (38-126) U/L Total Protein (6.3-8.2) g/dL Albumin (3.5-5.0) g/dL Globulin (1.7-4.1) g/dL Albumin/Globulin Ratio (1.0-2.8) Amylase (30-110) U/L Lipase (23-300) U/L Urine RBC 0-1/hpf (0-5/HPF) Urine WBC 5-10/hpf H (0-5/HPF) Ur Squamous Epith Cells 0-1 /hpf (0-5/HPF) Amorphous Sediment 1+ Urine Bacteria Few (2-10) H (None) Urine Mucus 2+ H (Negative) Ur Culture Indicated? Specimen cultured U Opiates 300ng/mL cut Negative (Negative) Ur Oxycodone Screen Negative (Negative) Urine Methadone Screen Negative (Negative) Ur Barbiturates Screen Negative (Negative) U Tricyclic Antidepress Negative (Negative) Ur Phencyclidine Scrn Negative (Negative) Ur Amphetamines Screen Negative (Negative) U Methamphetamines Scrn Negative (Negative) Ur MDMA Scrn (Ecstasy) Negative (Negative) U Benzodiazepines Scrn Negative (Negative) Urine Cocaine Screen Negative (Negative) U Marijuana (THC) Screen Positive H (Negative) 07/13/19 07/13/19 Range/Units 19:58 19:58 WBC (4.5-11.0) X10^3/uL RBC (4.0-5.2) X10^6/uL Hgb (12.0-16.0) g/dL Hct (36-46) % MCV (80-100) fL MCH (26-34) PG MCHC (30-36) % RDW (11.6-14.8) % Plt Count (150-400) X10^3/uL Neut % (Auto) (50-75) % Lymph % (Auto) (25-40) % [place] % (Auto) (3-14) % Eos % (Auto) (2-4) % Baso % (Auto) (0-2) % Neut # (Auto) (1134-0795) /uL Lymph # (Auto) (1171-4162) /uL [place] # (Auto) (0-900) /uL Eos # (Auto) (0-450) /uL Baso # (Auto) (0-100) /uL Sodium 141 (137-145) mmol/L Potassium 4.0 (3.4-5.1) mmol/L Chloride 106 (98-107) mmol/L Carbon Dioxide 26 (22-32) mmol/L BUN 12 (7-17) mg/dL Creatinine 0.60 (0.52-1.04) mg/dL Estimated GFR > 60.0 (>60) mL/min BUN/Creatinine Ratio 20.0 (6-22) Glucose 90 (80-110) mg/dL Calcium 9.8 (8.4-10.2) mg/dL Magnesium 1.9 (1.6-2.3) mg/dL Total Bilirubin 0.9 (0.2-1.3) mg/dL AST 24 (14-36) IU/L ALT 26 (<35) IU/L Alkaline Phosphatase 59 (38-126) U/L Total Protein 7.4 (6.3-8.2) g/dL Albumin 4.5 (3.5-5.0) g/dL Globulin 2.9 (1.7-4.1) g/dL Albumin/Globulin Ratio 1.6 (1.0-2.8) Amylase 72 (30-110) U/L Lipase 110 (23-300) U/L Urine RBC (0-5/HPF) Urine WBC (0-5/HPF) Ur Squamous Epith Cells (0-5/HPF) Amorphous Sediment Urine Bacteria (None) Urine Mucus (Negative) Ur Culture Indicated? U Opiates 300ng/mL cut (Negative) Ur Oxycodone Screen (Negative) Urine Methadone Screen (Negative) Ur Barbiturates Screen (Negative) U Tricyclic Antidepress (Negative) Ur Phencyclidine Scrn (Negative) Ur Amphetamines Screen (Negative) U Methamphetamines Scrn (Negative) Ur MDMA Scrn (Ecstasy) (Negative) U Benzodiazepines Scrn (Negative) Urine Cocaine Screen (Negative) U Marijuana (THC) Screen (Negative) Urine Dip Bedside Urine Glucose Negative Bedside Urine Bilirubin - Negative Bedside Urine Ketone +++ 80 Urine Specific Randall 1.030 Bedside Urine Occult Blood +/- Bedside Urine pH 6.0 Bedside Urine Protein +/- 15 Bedside Urine Urobilinogen - Negative Bedside Urine Nitrite - Negative Bedside Urine Leukocytes - Negative Esterase Discharge Plan Departure Patient Disposition: Home Clinical Impression: Nausea Urinary tract infection Qualifiers: Urinary tract infection type: site unspecified Hematuria presence: without hematuria Qualified Code(s): N39.0 - Urinary tract infection, site not specified Discharge Date/Time: 07/13/19 21:15 Instructions: DI for Urinary Tract Infection (UTI), DI for Nausea -- Adult Activity Restrictions/Additional Instructions: Today your lab work came back well, you do not have any abdominal pain on exam. You responded well to Zofran for nausea. I sent a prescription of Zofran to [facility]. We have also given you a take-home pack. Your urine is concerning for signs of infection, so I have placed you on Macrobid. There is a urine culture pending at this point time. If we have to change her antibiotic, we will call you. Please come back to the emergency department for any acute concerns such as abdominal pain with fever, concern of heart attack or stroke. Please follow-up with primary care provider in the next few days Prescriptions: New ondansetron 4 mg tablet,disintegrating 4 mg PO Q6H PRN (Reason: nausea and vomiting) Qty: 20 RF: 0 nitrofurantoin monohyd/m-cryst [Macrobid] 100 mg capsule 100 mg PO Q12H 7 Days Qty: 14 RF: 0 No Action meloxicam 7.5 mg tablet 7.5 mg PO DAILY Qty: 10 RF: 0 Referrals: Sherry Santana MD [Family Provider] - Nuvia Walters [Primary Care Provider] -
[2019-07-13] MEDS: NITROFURANTOIN ER 100 MG CAPSULE PO (21:08)
[2019-07-13] MEDS: ONDANSETRON 4 MG ODT PREPACK 1 BOTTLE MISC (21:08)
[2019-07-13 21:13] VITALS: BP 162/90; PULSE 88; RESP 12; O2SAT 98
== END 2019-07-13 21:15 | disposition home or self-care (01) ==
PROVIDERS: Emergency Provider Nurse Practitioner Family; Family Provider Internal Medicine; PCP Internal Medicine
DX: N39.0 Urinary tract infection, site not specified (principal); R11.2 Nausea with vomiting, unspecified
CPT/HCPCS: 36415; 80053; 80305; 81003; 81015; 82150; 83690; 83735; 85025; 87086; 99283

== ENCOUNTER → 2019-08-24 11:47 | Outpatient (CLI) | payer MEDICARE, OTHER, SELFPAY ==
--- NOTE | 2019-08-24 | DI.CT.S_ITS ---
PROCEDURE: CT KIDNEY URETER BLADDER (KUB) INDICATIONS: Hematuria, unspecified TECHNIQUE: Noncontrast 5 mm thick sections acquired from the diaphragms to the symphysis. 5 mm thick coronal and sagittal reformats were then performed. For radiation dose reduction, the following was used: automated exposure control, adjustment of mA and/or kV according to patient size. COMPARISON: None. FINDINGS: Image quality: Excellent. Lung bases: Lung bases are clear. Heart size is normal. Urinary system: Moderate to severe right-sided hydroureteronephrosis is seen with abrupt transition point at the mid right ureter at the level of L5. There is soft tissue attenuation (approximately 9-10 mm) seen within the lumen on image 49/2. The distal right ureter remains decompressed. No evidence of left-sided urinary obstruction although prominent left renal pelvis and/or parapelvic cysts. No urolithiasis seen. Mild right perinephric stranding. Bladder is grossly unremarkable. Nodes and vessels: No retroperitoneal or mesenteric adenopathy by size criteria. Aorta and inferior vena cava are normal in caliber. Colonic diverticulosis is seen without evidence of acute complication. There is subcentimeter nodular appearance of the left adrenal gland, technically indeterminate in the absence of prior studies. Abdominal wall: No ventral hernias. Pelvis: No free pelvic fluid. No inguinal hernias or adenopathy. Bones: No suspicious bony lesions. No vertebral body compression fractures. Lower lumbar spondylosis and facet arthropathy IMPRESSION: Moderate to severe right hydroureteronephrosis corresponding to a mid right ureteral obstruction, although no definite calcified appearance and this finding is suspicious for neoplasm (versus noncalcified stone). Recommend urological surgical management. Subcentimeter nodular appearance of the left adrenal gland although technically indeterminate in the absence of prior studies and too small to characterize. Recommend continued observation on subsequent studies Findings are personally telephoned and discussed with Dr. Brandon on 08/24/19 Dictated by: New Call M.D. on 08/24/2019 at 14:57 Approved by: New Call M.D. on 08/24/2019 at 15:14
== END ==
PROVIDERS: Family Provider Internal Medicine; PCP Internal Medicine; Referring Provider Specialist; Visit Provider Specialist
DX: R31.9 Hematuria, unspecified (principal); N13.30 Unspecified hydronephrosis; K57.30 Diverticulosis of large intestine without perforation or abscess without bleeding; M47.816 Spondylosis without myelopathy or radiculopathy, lumbar region
CPT/HCPCS: 74176

== ENCOUNTER 2019-08-28 07:29 | Day surgery (SDC) | payer MEDICARE, OTHER, SELFPAY ==
[2019-08-28] VITALS (9 sets, daily range): BP systolic 128–160; BP diastolic 79–107; PULSE 55–86; RESP 11–24; TEMP 36.8–36.9; O2SAT 90–99; BMI 27.5
--- NOTE | 2019-08-28 | DI.RAD.S_ITS ---
PROCEDURE: XR ABDOMEN 14 views including imaging. INDICATIONS: CYSTO, MORE IMAGES SAVED PER REQUEST OF UROLOGIST. Prior CT scanning that documented prominent collecting system dilatation on the right in the setting of hematuria, and a right ureteral mass, soft tissue, was radiographically suspected from noncontrast CT KUB scanning 08/24/19. TECHNIQUE: One view chest and two views of the abdomen were acquired. COMPARISON: [facility], CT, CT KIDNEY URETER BLADDER (KUB), 08/24/2019, 11:50. FINDINGS: Surgical changes and devices: Bilateral ureteral cannulation and retrograde contrast injection was performed, first on the left and second on the right. Chest: Not included on this study. Abdomen: Digital acquisition imaging during the course of the retrograde evaluation. The left-sided imaging shows no mass or urinary tract dilatation, and normal appearance of the left ureter. The right-sided imaging initially cannulated a dominant right ureter with retrograde filling of contrast which abruptly terminated rightward of the mid lumbosacral spine level. Contrast then refluxes inferiorly within a duplex ureter, with retrograde filling cephalad to a more lateral normal caliber ureter on the right. This extends cephalad and appears to drain an upper pole small moiety which is not hydronephrotic but there is extravasation of contrast along the renal sinus borders in this area of the upper third of the right kidney, rendering accurate assessment of the collecting system margins somewhat limited. A definite malignant appearing mass in that area is not seen. The 2 separate ureters, one obstructed and the other patent to the upper third of the right kidney collecting system unite at the axial level just below the right sacroiliac joint tip and appear to extend to the bladder as a single ureter. Bones: No suspicious bony lesions. IMPRESSION: 1. Prior CT scan shows prominent right-sided hydronephrosis. This hydronephrosis extended to a soft tissue mass within the dilated right ureter, consistent with ureteral level a transitional cell carcinoma. The current retrograde study of the right shows a duplex collecting system with a small portion of the upper third of the left kidney drained by a normal caliber right ureter extending into the pelvis. 2. The nonobstructed right upper pole ureter appears to unite with a second ureter at the lower third of the ureteral course, but the exact point of apparent union is not fully delineated by this study. The obstructed ureter contains a rounded masslike structure seen partially by CT scanning and also up along its inferior margin of the current retrograde study. This ureter is fully obstructed, and services a large percentage of the right right renal parenchyma, in the area of CT-documented prominent hydronephrosis. 3. Accurate assessment of the collecting system at the upper third of the right kidney is limited by renal sinus extravasation of retrograde injected contrast. No definite mass in that area. 4. No mass suspected involving the left renal collecting system and ureter. Bladder is not assessed by the available images from this study but presumably was visualized cystoscopically. 5. Contrast-enhanced CT scanning may be warranted both for staging purposes and to further assess the urothelium and renal cortex bilaterally. Dictated by: Stephen Coats M.D. on 08/28/2019 at 11:29 Approved by: Stephen Coats M.D. on 08/28/2019 at 12:00
[2019-08-28] MEDS: LACTATED RINGERS 1,000 ML 42 ML IV ×2 (08:30→10:34)
--- NOTE | 2019-08-28 08:40 | PM.PREOP ---
Pre-operative Note Interval Note History & Physical reviewed/Exam performed by Physician: Yes Changes to H&P: No H&P completed within 30 days and has changed as indicated here:: There are no changes to the scanned history and physical examination.
[2019-08-28] MEDS: CEFAZOLIN 2 GM/100 ML FROZ.PIGGY IV (09:10)
--- NOTE | 2019-08-28 09:36 | SUR.OPER ---
Lithotomy on padded OR bed, head on pillow, arms secured on padded arm boards at <90 degrees abduction. Legs secured in padded yellow fins stirrups.
[2019-08-28] MEDS: IOPAMIDOL 15 ML VIAL INJ (09:40)
[2019-08-28] MEDS: DIMETHYL SULFOXIDE 120 ML LIQUID 50 ML URE (09:41)
[2019-08-28] MEDS: BELLADONNA/OPIUM SUPPOSITORIES 1 EACH PR ×2 (09:43→13:10)
--- NOTE | 2019-08-28 11:10 | PM.OP.1 ---
Operative Date/Time/Diagnoses Date of procedure: 08/28/19 Time of procedure: 11:11 Post-op diagnosis: same Procedure & Clinicians Procedure: 1. Cystoscopy and bilateral retrograde pyelograms. 2. Right ureteroscopy. 3. Cystoscopy and hydrodistention. 4. Cystoscopy and instillation DMSO. Same procedure as scheduled: Yes Indications: 1. Hematuria 2. Right ureteral mass. 3. Right hydronephrosis. 4. Bladder pain. Surgeon: Erlinda Brandon Click Yes if Unassisted: Yes Anesthesia Type: General Operative Notes Findings: 1. Minimal petechiae following distention of bladder to capacity at 500 cc for 2 minutes duration. 2. Normal left retrograde pyelogram. 3. Incomplete right ureteral duplication to a level about 5 cm above the right ureterovesical junction. 4. Apparent normal right lower pole moiety collecting system. 5. A solid obstructing neoplasm of the mid right ureter upper pole moiety. Closure Type: not applicable Specimen(s): none sent Estimated Blood Loss (mL): 0 Blood products transfused: none Tourniquet time (min): 0 Procedure in detail: The patient was positioned supine is administered general anesthesia. She was then repositioned in semi lithotomy in the lower abdomen genitalia and groin were prepped and draped in sterile fashion. The 22 Belgian panendoscope was then passed the lower urinary tract with the findings as described above. A 0.3 5 Katiuska the wire was then advanced into the left collecting system under direct and fluoroscopic guidance. A 5 Belgian pollock catheter was then advanced over the Glidewire again under direct and fluoroscopic guidance. Left retrograde pyelogram was then performed with findings of normal contour no filling defects seen intraoperative fluoroscopic images were saved. Next the same step some maneuvers were performed on the right side with the findings as described above a 15 Belgian 4 cm balloon dilating catheter was then positioned across the right ureterovesical junction and dilated to 18 atmospheres for 5 minutes. The balloon was then deflated and backloaded off the Glidewire the bay endoscope was backloaded off the Glidewire. The semi rigid ureteroscope was then introduced the lower urinary tract and was then advanced into the right collecting system under direct the examination with the findings as described above I was able the maneuver the ureteral scope up to the level of the obstructing tumor it was solid completely obstructing the lumen and had a serpiginous vascularity there was no papillary component I was not able to advance a Glidewire beyond the obstructing neoplasm. Urethra ureteral scope was then withdrawn and removed. The 25 Belgian panendoscope was then inserted into the bladder and the bladder was filled at 80 cm height with by gravity. At capacity the distended bladder was maintained for 2 minutes. It was then drained with a intraoperative report retained bladder volume of 500 cc. Re-examination of the bladder lumen revealed minimal patchy petechiae. 120 cc of DMSO were then instilled in the bladder a 16 Belgian Ramos catheter was placed. A plug was then placed in the end. Anticipated retention time 30 minutes. The patient was then repositioned in supine was awakened and transferred to a gurney in stable condition. Complications: none Post-operative Condition: stable Disposition: PACU Plan for aftercare: Discharge home
--- NOTE | 2019-08-28 11:44 | SUR.PHASEI ---
Pt arrived from OR and became very restless. Attempting to get OOB, not responding to commands. C/O need to void. Attempted to reorient repeatedly. Ashton in place with plug. Patient was very restless until approx 1050. C/O severe need to void. At about 1100 patient reported feeling wet. The ashton plug was found dislodged, new plug placed. IV was also dislodged. Dr. Brandon notified. Ashton removed without difficulty. Patient c/o need to void. Ambulated SBA to bathroom. Report given to Linnette.
--- NOTE | 2019-08-28 12:24 | SUR.PHASEII ---
up to bathroom, states able to void, c/o feeling constant urge to void.
[2019-08-28] MEDS: PHENAZOPYRIDINE 100 MG TABLET 200 MG PO (12:36)
[2019-08-28] MEDS: FLEETS ENEMA 1 EACH PR (12:57)
--- NOTE | 2019-08-28 15:59 | SUR.PHASEII ---
pt had excellent relief with belladonna suppository and pyridium she felt like she was well enough to go home
== END 2019-08-28 14:00 | disposition home or self-care (01) ==
PROVIDERS: Family Provider Internal Medicine; PCP Internal Medicine; Referring Provider Internal Medicine; Visit Provider Specialist
PROC: 3E1K78Z Irrigation of Genitourinary Tract using Irrigating Substance, Via Natural or Artificial Opening (ICD-10-PCS; CPT 51700; principal; 2019-08-28 09:00)
DX: N28.9 Disorder of kidney and ureter, unspecified (principal); N13.30 Unspecified hydronephrosis
CPT/HCPCS: 52260; 74021; 76000; J0690; J1100; J2250; J2405; J2704; J3010

== ENCOUNTER 2019-08-31 21:44 | Emergency (ER) | payer MEDICARE, OTHER, SELFPAY ==
[2019-08-31 21:52] VITALS: BP 144/73; PULSE 69; RESP 20; TEMP 36.8; O2SAT 99
--- NOTE | 2019-08-31 22:19 | ED.EXTPRO ---
HPI - Extremity Problem General Chief complaint: Extremity Problem,Nontraumatic Stated complaint: PAIN LEFT ARM SWELLING LIGHT HEADED CONFUSED Time Seen by Provider: 08/31/19 22:06 Source: patient Mode of arrival: Ambulatory Limitations: no limitations History of Present Illness HPI Narrative: Patient is a 59-year-old female who at the end of last week underwent a urologic procedure where she had an IV. She is unsure where the IV was placed. She states that earlier this evening she had pain in her left wrist. Was also itching. She states she went to scratch it and noticed that it was swollen and also red. She was concerned that potentially she had a blood clot the IV although she is unsure if this is where they placed the IV. Related Data Home Medications Medication Instructions Recorded Confirmed No Known Home Medications 08/28/19 08/28/19 Previous Rx's Medication Instructions Recorded oxycodone 5 mg PO Q4H PRN #20 cap 08/28/19 Allergies Allergy/AdvReac Type Severity Reaction Status Date / Time ciprofloxacin [From CIPRO] Allergy Unknown Hives Verified 08/28/19 08:11 Iodinated Contrast Media Allergy Unknown Hives Verified 08/28/19 08:11 Review of Systems Constitutional Constitutional: Denies fever(s) and Denies headache(s) ENT Ears, Nose, Mouth, and Throat: Denies headache(s) Cardiovascular Cardiovascular: Denies chest pain and Denies dyspnea Respiratory Respiratory: Denies dyspnea Musculoskeletal Musculoskeletal: Denies myalgias and Denies arthralgias Integumentary/Breasts Comments: Redness and swelling to left wrist Neurologic Neurologic: Denies headache(s) Hematologic/Lymphatic Hematologic/Lymphatic: Denies easy bleeding and Denies easy bruising Patient History Medical History Bilateral hydronephrosis (Acute) Chronic pain of lower extremity, bilateral (Chronic) Migraine (Chronic) PTSD (post-traumatic stress disorder) (Chronic) Ureteral duplication, left (Acute) Surgical History (Updated 08/26/19 @ 15:13 by Carolyn Trejo RN) Status post breast lumpectomy (Resolved) Status post hysterectomy (Resolved ~1989) Social History household members: spouse Smoking Status: Current every day smoker alcohol intake: current Smoking Status: Current every day smoker alcohol intake frequency: a few times a month Substance Use Type: marijuana Exam Initial Vital Signs Initial Vital Signs: Vital Signs Temperature 98.2 F 08/31/19 21:52 Pulse Rate 69 08/31/19 21:52 Respiratory Rate 20 08/31/19 21:52 Blood Pressure 144/73 H 08/31/19 21:52 Pulse Oximetry 99 08/31/19 21:52 Const General: cooperative, healthy appearing, comfortable and well developed Limitations: mental status not altered Skin Other: Patient with a small amount of bruising on the volar aspect of the left wrist just proximal to the joint. There is no surrounding erythema. No swelling. No bleeding. Neuro General: alert and awake Cognition: normal cognition Speech: speech normal Sensory Exam: no sensory deficits noted Extrem General: normal to inspection and capillary refill normal Course Vital Signs Vital signs: Vital Signs - 8 hr 08/31/19 21:52 Temperature 98.2 F Pulse Rate 69 Respiratory Rate 20 Blood Pressure 144/73 H Pulse Oximetry 99 MDM - Extremity (Nontraumatic) MDM Narrative Medical decision making narrative: Patient's physical exam does have some bruising on the left wrist however not convinced that this is related any IV placement. There is no swelling in the area. No surrounding erythema. Low suspicion for cellulitis. It was a very small break in the skin in the center of this. Unsure if this is from her scratching or potentially was a bug bite. There is no signs of an abscess. Low suspicion for a blood clot. Potentially could have had a localized allergic reaction to something that she was exposed to causing the itching. When as she states that if it potentially could have been a small area of urticaria in this area which she described as the swelling. She does not have any other systemic symptoms related to an allergic reaction or anaphylaxis. We did discuss use of ice and potentially topical antihistamine cream. On further workup for now. Patient was given return precautions and follow-up instructions. She expressed understanding and agreement with plan. Discharge Plan Departure Patient Disposition: Home Clinical Impression: Rash Discharge Date/Time: 08/31/19 22:27 Instructions: DI for Rash Activity Restrictions/Additional Instructions: You can use topical anti-itch cream if needed. I also recommend that you place some ice over the area. Contact your primary provider for follow-up. Return to the emergency department for any new or worsening symptoms Prescriptions: No Action No Known Home Medications RF: 0 oxycodone 5 mg capsule 5 mg PO Q4H PRN (Reason: pain) Qty: 20 RF: 0 Referrals: Nuvia Walters [Primary Care Provider] -
== END 2019-08-31 22:27 | disposition home or self-care (01) ==
PROVIDERS: Emergency Provider Emergency Medicine; Family Provider Internal Medicine; PCP Internal Medicine
DX: R21 Rash and other nonspecific skin eruption (principal)
CPT/HCPCS: 99281

== ENCOUNTER 2019-11-03 01:55 | Emergency (ER) | payer MEDICARE, OTHER, SELFPAY ==
[2019-11-03 02:00] VITALS: BP 123/73; PULSE 81; RESP 22; TEMP 36.8; O2SAT 97
--- NOTE | 2019-11-03 02:22 | DI.RAD.S_ITS ---
PROCEDURE: XR CHEST 1V INDICATIONS: Shortness of breath TECHNIQUE: One view of the chest was acquired. COMPARISON: [facility], CR, XR CHEST 1V, 03/12/2018, 12:28. FINDINGS: Surgical changes and devices: Port-A-Cath from right sided approach extends into the distal SVC. Lungs and pleura: Lungs are clear. No pleural effusions or pneumothorax. Mediastinum: Mediastinal contours appear normal. Heart size is normal. Bones and chest wall: No suspicious bony lesions. Overlying soft tissues appear unremarkable. IMPRESSION: Source of shortness of breath not identified, normal Port-A-Cath positioning. Dictated by: Stephen Coats M.D. on 11/03/2019 at 8:11 Approved by: Stephen Coats M.D. on 11/03/2019 at 8:11
--- NOTE | 2019-11-03 02:23 | ED.SOB ---
HPI - SOB/Dyspnea General Chief Complaint: Shortness of Breath/Dyspnea Stated Complaint: difficulty breathing on chemo side effects Time Seen by Provider: 11/03/19 02:00 Source: patient and family Mode of arrival: Ambulatory Limitations: no limitations History of Present Illness HPI Narrative: 59-year-old female former smoker with recent diagnosis of ureteral cancer. Patient received her care at the [facility] and had her first round of chemotherapy on Saturday. She used her new port without difficulty. Patient has had multiple rounds of loose stools and feels a bit weak. She has had so many episodes that she is wearing an adult diaper. She denies fever or chills. She has had no abdominal pain, nausea, or vomiting. She denies any recent travel. She has had no runny nose or cough. She states that she feels short of breath, but on further discussion she states that it is more of a fullness and discomfort in her throat and she was scared that she has mucocitis and that her throat would close. She's been tolerating oral hydration and food. She is otherwise well and free of complaint. She denies recent travel, antibiotics, or exposure to bad food. She expects to have rounds of chemotherapy every 2 weeks until mid summer when there is plan to perform a partial nephrectomy. She denies dysuria, frequency, urgency or hematuria. MD Complaint: shortness of breath Onset (ago): day(s) Severity: moderate Consistency/Duration: constant Relieving factors: nothing Exacerbating factors: nothing Related Data Home oxygen amount: none Previous Rx's Medication Instructions Recorded oxycodone 5 mg PO Q4H PRN #20 cap 08/28/19 oral wound care products [Gelclair] 1 applictn MM TID #225 ml 11/03/19 Allergies Allergy/AdvReac Type Severity Reaction Status Date / Time ciprofloxacin [From CIPRO] Allergy Unknown Hives Verified 08/28/19 08:11 Iodinated Contrast Media Allergy Unknown Hives Verified 08/28/19 08:11 Review of Systems Constitutional Constitutional: Denies chills, Denies fatigue, Denies fever(s), Denies frequent falls, Denies lethargy and Denies weakness Eyes Eyes: Denies change in vision, Denies eye discharge, Denies irritation and Denies loss of vision ENT Ears, Nose, Mouth, and Throat: Denies change in voice, Denies dizziness, Denies neck pain, Reports sore throat and Reports throat swelling Cardiovascular Cardiovascular: Denies chest pain, Denies irregular heart rhythm, Denies lightheadedness, Denies palpitations, Reports dyspnea, Denies dyspnea on exertion and Denies orthopnea Respiratory Respiratory: Denies cough, Reports dyspnea, Denies dyspnea on exertion and Denies wheezing Gastrointestinal Gastrointestinal: Denies abdominal pain, Denies change in bowel habits, Reports diarrhea, Reports nausea and Denies vomiting Genitourinary Genitourinary: Denies hematuria, Denies flank pain, Denies urinary incontinence and Denies urinary urgency Musculoskeletal Musculoskeletal: Denies back pain, Denies muscle weakness, Denies neck pain, Denies numbness and Denies tingling Integumentary/Breasts Skin/Breast: Denies pruritus, Denies erythema, Denies rash and Denies wounds Neurologic Neurologic: Denies behavioral changes, Denies confusion, Denies dizziness, Denies frequent falls, Denies loss of vision, Denies numbness, Denies tingling and Denies weakness Psychiatric Psychiatric: Denies anxiety, Denies behavioral changes, Denies confusion, Denies depression, Denies homicidal ideation and Denies suicidal ideation Endocrine Endocrine: Denies fatigue, Denies flushing and Denies palpitations Hematologic/Lymphatic Hematologic/Lymphatic: Denies easy bruising Allergic/Immunologic Allergic/Immunologic: Denies urticaria, Reports throat swelling and Denies wheezing Patient History Medical History Bilateral hydronephrosis (Acute) Chronic pain of lower extremity, bilateral (Chronic) Migraine (Chronic) PTSD (post-traumatic stress disorder) (Chronic) Ureteral duplication, left (Acute) Surgical History Status post breast lumpectomy (Resolved) Status post hysterectomy (Resolved ~1989) Social History household members: spouse Smoking Status: Current every day smoker alcohol intake: current Smoking Status: Current every day smoker alcohol intake frequency: a few times a month Substance Use Type: marijuana Exam Narrative Exam Narrative: GENERAL: [59] year old patient appears stated age. Well-nourished, well-developed patient, in mild distress. HEAD: Atraumatic. Normocephalic. EYES: Pupils equal round and reactive. Extraocular motions intact. No scleral icterus. No injection or drainage. ENT: Nose without bleeding, purulent drainage. Posterior pharynx with minimal erythema, no obvious ulcers, bullae, exudate, edema, or tonsillar hypertrophy. Airway patent. NECK: Trachea midline. Non tender CARDIOVASCULAR: Regular rate and rhythm without murmurs, gallops, or rubs. RESPIRATORY: Clear to auscultation. Breath sounds equal bilaterally. No wheezes, rales, or rhonchi. GASTROINTESTINAL: Abdomen soft, non-tender, nondistended. Increased bowel sounds EXTREMITIES: No edema or joint tenderness. BACK: Nontender without deformity or crepitance. No flank tenderness. NEURO: AOx3. SKIN: No rash or erythema of visible areas Initial Vital Signs Initial Vital Signs: Vital Signs Temperature 98.2 F 11/03/19 02:00 Pulse Rate 81 11/03/19 02:00 Respiratory Rate 22 11/03/19 02:00 Blood Pressure 123/73 11/03/19 02:00 Pulse Oximetry 97 11/03/19 02:00 Course Course Course Narrative: patient feeling much better after the above stated therapies. Orders Ordered: ED Orders 11/03/19 02:20 GI Panel (Film Array) Stat 11/03/19 02:22 XR chest 1V Stat 11/03/19 02:33 Urinalysis and Microscopic Stat 11/03/19 02:58 C-Reactive Protein Quant Stat Complete Blood Count AUTO DIFF Stat Comprehensive Metabolic Panel Stat Lactate (Lactic Acid) Stat NT-proBNP (BNP-Adult 18+) Stat Procalcitonin Stat 11/03/19 03:15 Blood Culture Stat 11/03/19 03:29 Throat Culture Stat Heparin Sodium (Porcine) (Heparin Flush (Port)) 500 unit IV PRN PRN PRN Reason: Flush Heparin Sodium (Porcine) (Heparin Flush (Port)) 500 unit IV NOW ONE Stop: 11/03/19 04:38 Discontinued Medications Sodium Chloride (Normal Saline 0.9%) 1,000 mls @ 1,000 mls/hr IV BOLUS ONE Stop: 11/03/19 03:19 Last Admin: 11/03/19 02:33 Dose: 1,000 mls/hr Documented by: REE Lidocaine HCl (Xylocaine 1% (Pf)) 2 ml SUBCUT NOW ONE Stop: 11/03/19 02:25 Last Admin: 11/03/19 02:34 Dose: 2 ml Documented by: REE Pantoprazole Sodium (Protonix) 40 mg IV NOW ONE Stop: 11/03/19 02:21 Last Admin: 11/03/19 02:33 Dose: 40 mg Documented by: REE Vital Signs Vital signs: Vital Signs - 8 hr 11/03/19 02:00 11/03/19 03:37 11/03/19 04:00 Temperature 98.2 F Pulse Rate 81 75 70 Respiratory Rate 22 18 20 Blood Pressure 123/73 Blood Pressure [Right Arm] 160/90 H 154/82 H Pulse Oximetry 97 98 99 11/03/19 04:30 Temperature Pulse Rate 68 Respiratory Rate 20 Blood Pressure Blood Pressure [Right Arm] 168/79 H Pulse Oximetry 98 MDM - SOB/Dyspnea Lab Data Result diagrams: 11/03/19 02:58 11/03/19 02:58 Labs: Lab Results 11/03/19 11/03/19 11/03/19 Range/Units 02:58 02:58 02:58 WBC 12.6 H (4.5-11.0) X10^3/uL RBC 5.15 (4.0-5.2) X10^6/uL Hgb 15.2 (12.0-16.0) g/dL Hct 45.5 (36-46) % MCV 88.4 (80-100) fL MCH 29.6 (26-34) PG MCHC 33.5 (30-36) % RDW 14.2 (11.6-14.8) % Plt Count 178 (150-400) X10^3/uL Neut % (Auto) Not Reportable Lymph % (Auto) Not Reportable Tripp % (Auto) Not Reportable Eos % (Auto) Not Reportable Baso % (Auto) Not Reportable Lymph # (Auto) Not Reportable Tripp # (Auto) Not Reportable Baso # (Auto) Not Reportable Sodium 137 (137-145) mmol/L Potassium 3.7 (3.4-5.1) mmol/L Chloride 102 (98-107) mmol/L Carbon Dioxide 23 (22-32) mmol/L BUN 17 (7-17) mg/dL Creatinine 0.54 (0.52-1.04) mg/dL Estimated GFR > 60.0 (>60) mL/min BUN/Creatinine Ratio 31.5 H (6-22) Glucose 132 H (80-110) mg/dL Lactate (0.7-2.1) mmol/L Calcium 9.7 (8.4-10.2) mg/dL Total Bilirubin 0.9 (0.2-1.3) mg/dL AST 30 (14-36) IU/L ALT 114 H (<35) IU/L Alkaline Phosphatase 96 (38-126) U/L C-Reactive Protein 1.5 H (<1.0) mg/dL NT-Pro-B Natriuret Pep 70 (<125) pg/mL Total Protein 7.2 (6.3-8.2) g/dL Albumin 4.3 (3.5-5.0) g/dL Globulin 2.9 (1.7-4.1) g/dL Albumin/Globulin Ratio 1.5 (1.0-2.8) Procalcitonin (<0.5) ng/mL 11/03/19 11/03/19 Range/Units 02:58 02:58 WBC (4.5-11.0) X10^3/uL RBC (4.0-5.2) X10^6/uL Hgb (12.0-16.0) g/dL Hct (36-46) % MCV (80-100) fL MCH (26-34) PG MCHC (30-36) % RDW (11.6-14.8) % Plt Count (150-400) X10^3/uL Neut % (Auto) Lymph % (Auto) Tripp % (Auto) Eos % (Auto) Baso % (Auto) Lymph # (Auto) Tripp # (Auto) Baso # (Auto) Sodium (137-145) mmol/L Potassium (3.4-5.1) mmol/L Chloride (98-107) mmol/L Carbon Dioxide (22-32) mmol/L BUN (7-17) mg/dL Creatinine (0.52-1.04) mg/dL Estimated GFR (>60) mL/min BUN/Creatinine Ratio (6-22) Glucose (80-110) mg/dL Lactate 0.8 (0.7-2.1) mmol/L Calcium (8.4-10.2) mg/dL Total Bilirubin (0.2-1.3) mg/dL AST (14-36) IU/L ALT (<35) IU/L Alkaline Phosphatase (38-126) U/L C-Reactive Protein (<1.0) mg/dL NT-Pro-B Natriuret Pep (<125) pg/mL Total Protein (6.3-8.2) g/dL Albumin (3.5-5.0) g/dL Globulin (1.7-4.1) g/dL Albumin/Globulin Ratio (1.0-2.8) Procalcitonin 0.11 (<0.5) ng/mL Point of Care Testing Rapid Strep A Negative MDM Narrative Medical decision making narrative: Multiple diagnoses considered, but likely her symptoms unintended sequelae of her recent chemotherapy. She describes trouble breathing, but after discussion it seems clear that her sense of difficulty in breathing stems from discomfort in her throat. She has no exudate, can tolerate orals, and airway is patent. Lung sounds are clear and vitals are reassuring. She has been encouraged to contact her oncology team later this morning. She's been given return precautions and has had questions answered to her apparent satisfaction. Discharge Plan Departure Patient Disposition: Home Clinical Impression: Pain in throat, Mucositis due to chemotherapy Instructions: Coping With Diarrhea Related to Chemotherapy Activity Restrictions/Additional Instructions: *You have been diagnosed with [ diarrhea and throat discomfort, both likely due to recent chemotherapy ] *What to do: *Take medications as directed *Follow up with your primary care provider in 2-3 days, call for an appointment. Let them know you were seen in the Emergency Department and that we ask that you be seen in follow up *Return to ER if you should have any new, worsening or concerning symptoms 1. Drink plenty of fluids with frequent small sips. 2. For the next 24 hours a clear liquid diet is advised. After that please employ a brat diet which would include bananas, rice, apples, toast. 3. Please take medications as directed. 4. Please follow-up with your doctor in the next 1-2 days. Call the office for an appointment. 5. Please return to the emergency Department for any worsening or persistent symptoms, such as increasing pain or fever. Prescriptions: New Gelclair Gel In Packet 1 applictn MM TID Qty: 225 RF: 0 No Action oxycodone 5 mg capsule 5 mg PO Q4H PRN (Reason: pain) Qty: 20 RF: 0 Referrals: Nuvia Walters [Primary Care Provider] -
[2019-11-03] MEDS: SODIUM CHLORIDE 0.9% 1,000 ML 1000 ML IV (02:33)
[2019-11-03] MEDS: PANTOPRAZOLE 40 MG VIAL IV (02:33)
[2019-11-03] MEDS: LIDOCAINE 1% (PF) 2 ML SUBCUT (02:34)
[2019-11-03 03:22] LABS: White Blood Cell Count 12.6 X10^3/uL (4.5-11.0)
[2019-11-03 03:23] LABS: Add Manual Diff / Slide Review YES; Hematocrit 45.5 % (36-46); Hemoglobin 15.2 g/dL (12.0-16.0); Lactate (Lactic Acid) 0.8 mmol/L (0.7-2.1); Mean Corpuscular HGB Conc 33.5 % (30-36); Mean Corpuscular Hemoglobin 29.6 PG (26-34); Mean Corpuscular Volume 88.4 fL (80-100); Platelet Count 178 X10^3/uL (150-400); Red Blood Cell Count 5.15 X10^6/uL (4.0-5.2); Red Cell Distribution Width 14.2 % (11.6-14.8)
[2019-11-03 03:37] VITALS: BP 160/90; PULSE 75; RESP 18; O2SAT 98
[2019-11-03 03:39] LABS: Procalcitonin 0.11 ng/mL (<0.5)
[2019-11-03 03:43] LABS: Alanine Aminotransferase 114 IU/L (<35); Albumin 4.3 g/dL (3.5-5.0); Albumin Globulin Ratio 1.5 (1.0-2.8); Alkaline Phosphatase 96 U/L (38-126); Aspartate Aminotransferase 30 IU/L (14-36); BUN Creatinine Ratio 31.5 (6-22); Bilirubin Total 0.9 mg/dL (0.2-1.3); Blood Urea Nitrogen 17 mg/dL (7-17); C-Reactive Protein Quant 1.5 mg/dL (<1.0); Calcium 9.7 mg/dL (8.4-10.2); Carbon Dioxide 23 mmol/L (22-32); Chloride 102 mmol/L (98-107); Estimated Glomerular Filt Rate > 60.0 mL/min (>60); Globulin 2.9 g/dL (1.7-4.1); Glucose 132 mg/dL (80-110); Potassium 3.7 mmol/L (3.4-5.1); Sodium 137 mmol/L (137-145); Total Protein 7.2 g/dL (6.3-8.2)
[2019-11-03 03:44] LABS: HEMOLYSIS 20 (0-50)
[2019-11-03 03:49] LABS: NT-proBNP (BNP-Adult 18+) 70 pg/mL (<125)
[2019-11-03 04:00] VITALS: BP 154/82; PULSE 70; RESP 20; O2SAT 99
[2019-11-03 04:01] LABS: Bacteria Urine None Seen
[2019-11-03 04:30] VITALS: BP 168/79; PULSE 68; RESP 20; O2SAT 98
[2019-11-03 04:41] LABS: Appearance Urine UA CLEAR; Bilirubin Urine UA NEGATIVE (NEGATIVE); Color Urine UA YELLOW; Glucose Urine UA NEGATIVE (Negative); Ketones Urine UA 1+ (NEGATIVE); Leukocyte Esterase Urine UA NEGATIVE (NEGATIVE); Nitrite Urine UA NEGATIVE (Negative); Occult Blood Urine UA TRACE-LYSED (Negative); Protein Urine UA TRACE (Negative); Specific Gravity Urine UA 1.015 (1.000-1.035); Urobilinogen Urine UA 0.2 E.U./dL (0.2)
[2019-11-03 04:44] LABS: pH Urine UA 6.5 (4.5-8.0)
[2019-11-03 05:04] LABS: Amorphous Sediment Urine 1+; Granular Casts Urine 0-1/LPF; RBC Urine 0-1/HPF (0-5/HPF); WBC Urine 1-5/HPF (0-5/HPF)
[2019-11-03 05:05] LABS: Culture Indicated Urine Cult Not Indicated
[2019-11-03 06:49] LABS: Neutrophils Absolute Manual 9954 /uL (3000-5900); RBC Morphology Normal Morphology; Total Cells Counted 100
== END 2019-11-03 04:55 | disposition home or self-care (01) ==
PROVIDERS: Emergency Provider Emergency Medicine; Family Provider Internal Medicine; PCP Internal Medicine
DX: R07.0 Pain in throat (principal); K12.31 Oral mucositis (ulcerative) due to antineoplastic therapy; C66.9 Malignant neoplasm of unspecified ureter
CPT/HCPCS: 36415; 71045; 80053; 81001; 83605; 83880; 84145; 85025; 86140; 87040; 87070; 87880; 96361; 96374; 99284; C9113; J1642

== ENCOUNTER → 2020-04-20 16:03 | Outpatient (CLI) | payer MEDICARE, OTHER, SELFPAY ==
--- NOTE | 2020-04-20 | DI.MG.S_ITS ---
BILATERAL DIGITAL SCREENING MAMMOGRAM 3D/2D WITH CAD: 04/20/2020 CLINICAL: Routine screening. Family history of breast cancer. Comparison is made to exams dated: 11/13/2018 mammogram - [facility], 06/19/2017 mammogram - [facility], and 03/08/2016 mammogram - [facility]. The tissue of both breasts is heterogeneously dense. This may lower the sensitivity of mammography. Current study was also evaluated with a Computer Aided Detection (CAD) system. No significant masses, calcifications, or other findings are seen in either breast. There has been no significant interval change. IMPRESSION: NEGATIVE There is no mammographic evidence of malignancy. A 1 year screening mammogram is recommended. This exam was interpreted at Station ID: [id number]. NOTE: For mammograms, a report in lay terms will be sent to the patient. Approximately 15% of breast malignancies will not be visualized mammographically. In the management of a palpable breast mass, a negative mammogram must not discourage biopsy of a clinically suspicious lesion. Electronically Signed By: Jose franoc/reji:04/21/2020 08:15:45 letter sent: Normal Exam ACR BI-RADS Category 1: Negative [id number]
--- NOTE | 2020-04-20 16:05 | DI.MRI.S_ITS ---
PROCEDURE: MR CERVICAL SPINE WO CON INDICATIONS: Cervicalgia TECHNIQUE: Noncontrast sagittal T1 spin echo and T2 fast spin echo, sagittal STIR, foraminal oblique sagittal T2 fast spin echo, and axial gradient echo or T2 fast spin echo through the cervical spine. COMPARISON: None. FINDINGS: Image quality: Excellent. Alignment and Curvature: There is mild, approximately 2-3 millimeters of C3-C4 and C4-C5 anterolisthesis. There is mild, approximately 2-3 millimeters of C6-C7 retrolisthesis. There is mild reversal normal cervical spine curvature from C4-C6. Bone Marrow: Mild reactive endplate changes noted adjacent to the C5-C6 and C6-C7 discs. Spinal Cord: Visualized spinal cord has normal size and signal. No cerebellar tonsillar herniation. Paraspinous Soft Tissues: No paravertebral masses. Prevertebral soft tissues are normal in thickness. C2-C3: Loss of disc signal. No central stenosis. Mild bilateral facet hypertrophy. Mild bilateral neural foraminal narrowing. No neural compression. C3-C4: Loss of disc signal and height. Mild to moderate diffuse disc bulge. Sont-zx-syxvwdgd narrowing of the central canal. Moderate right and mild left facet hypertrophy. Mild right uncovertebral joint hypertrophy. Severe right and moderate left neural foraminal narrowing with compression of the exiting right C4 nerve root. C4-C5: Loss of disc signal and slight loss of disc height. Mild, diffuse disc bulge. Mild narrowing the central canal. Mild right and moderate left facet hypertrophy. Mild bilateral uncovertebral joint hypertrophy. Moderate right and severe left neural foraminal narrowing with compression of the exiting left C5 nerve root. C5-C6: Loss of disc signal and height. Mild, diffuse disc bulge. Moderate narrowing of the central canal. Mild right and moderate left facet hypertrophy. Mild bilateral uncovertebral joint hypertrophy. Moderate bilateral neural foraminal narrowing. No neural compression. C6-C7: Loss of disc signal and height. Moderate, diffuse disc bulge. Btyp-ri-qzyaqvil narrowing of the central canal. Mild bilateral facet hypertrophy. Moderate bilateral uncovertebral joint hypertrophy. Severe bilateral neural foraminal narrowing with compression of the exiting C7 nerve roots. C7-T1: Normal appearance. IMPRESSION: 1. Multilevel degenerative disc disease. 2. Multilevel facet and uncovertebral arthropathy. 3. Moderate C5-C6 central canal narrowing. 4. Severe bilateral C6-C7 neural foraminal narrowing with compression of the exiting bilateral C7 nerve roots. Severe right C3-C4 neural foraminal narrowing with compression of the exiting right C4 nerve root. Severe left C4-C5 neural foraminal narrowing with compression of the exiting left C5 nerve root. Dictated by: Verna Stallings MD, PhD on 04/20/2020 at 17:10 Approved by: Verna Stallings MD, PhD on 04/20/2020 at 17:18
--- NOTE | 2020-04-20 16:05 | DI.MRI.S_ITS ---
PROCEDURE: MR LUMBAR SPINE WO CON INDICATIONS: LOW BACK PAIN TECHNIQUE: Noncontrast sagittal T1 spin echo and T2 fast echo, sagittal STIR, axial T1 and T2 fast spin echo through the lumbar spine. In cases with scoliosis, additional coronal T2 fast spin echo may be performed. COMPARISON: [facility], CT, CT KIDNEY URETER BLADDER (KUB), 08/24/2019, 11:50. FINDINGS: Image quality: Excellent. Alignment and Curvature: There is trace L2-L3 retrolisthesis. Bone Marrow: Marrow is of normal overall signal. No acute vertebral body compression fractures. Spinal Cord: Conus medullaris terminates at the L1 level. Visualized cord demonstrates normal signal and size. Paraspinous Soft Tissues: No paravertebral masses. Left peripelvic renal cysts noted. Right kidney is not definitely identified and may be atrophied. L1-L2: Loss of disc signal. Mild, diffuse disc bulge. Mild bilateral facet hypertrophy. No central stenosis. Mild bilateral neural foraminal narrowing. No neural compression. L2-L3: Loss of disc signal. Mild, diffuse disc bulge. Mild bilateral facet hypertrophy. No central stenosis. No neural foraminal narrowing. No neural compression. L3-L4: Loss of disc signal. Mild, diffuse disc bulge. [id number] bilateral facet hypertrophy. Mild narrowing of the central canal. Mild bilateral neural foraminal narrowing. No neural compression. L4-L5: Loss of disc signal. Moderate, diffuse disc bulge. Mild bilateral facet hypertrophy. Mild narrowing of the central canal. Mild to moderate bilateral neural foraminal narrowing. No neural compression. L5-S1: Loss of disc signal and height. Mild, diffuse disc bulge. Mild bilateral facet hypertrophy. No central stenosis. [id number] bilateral neural foraminal narrowing. No neural compression. IMPRESSION: 1. Multilevel degenerative disc disease. 2. Multilevel facet arthropathy. 3. Mild L3-L4 and L4-L5 central canal narrowing. 4. Mild to moderate bilateral L4-L5 and L5-S1 neural foraminal narrowing. Mild bilateral L1-L2 and L3-L4 neural foraminal narrowing. 5. No neural compression. Dictated by: Verna Stallings MD, PhD on 04/20/2020 at 17:40 Approved by: Verna Stallings MD, PhD on 04/20/2020 at 17:45
== END ==
PROVIDERS: Family Provider Internal Medicine; PCP Internal Medicine; Referring Provider Internal Medicine; Visit Provider Internal Medicine
DX: Z12.31 Encounter for screening mammogram for malignant neoplasm of breast (principal); Z80.3 Family history of malignant neoplasm of breast; M50.31 Other cervical disc degeneration, high cervical region; M48.02 Spinal stenosis, cervical region; M47.812 Spondylosis without myelopathy or radiculopathy, cervical region; M54.5 Low back pain; M51.36 Other intervertebral disc degeneration, lumbar region; M51.37 Other intervertebral disc degeneration, lumbosacral region; M47.816 Spondylosis without myelopathy or radiculopathy, lumbar region; M47.817 Spondylosis without myelopathy or radiculopathy, lumbosacral region; M48.061 Spinal stenosis, lumbar region without neurogenic claudication; M48.07 Spinal stenosis, lumbosacral region; G60.9 Hereditary and idiopathic neuropathy, unspecified
CPT/HCPCS: 72141; 72148; 77063; 77067

== ENCOUNTER 2020-10-05 14:26 | Emergency (ER) | payer MEDICARE, OTHER, SELFPAY ==
[2020-10-05 14:29] VITALS: BP 126/61; PULSE 64; RESP 16; TEMP 36.3; O2SAT 99
[2020-10-05] MEDS: SODIUM CHLORIDE 0.9% 1,000 ML 1000 ML IV (17:26)
[2020-10-05 17:27] LABS: Add Manual Diff / Slide Review NO; Basophils Absolute Auto 100 /uL (0-100); Basophils Percent Auto 0.7 % (0-2); Eosinophils Absolute Auto 100 /uL (0-450); Eosinophils Percent Auto 1.2 % (2-4); Hematocrit 43.8 % (36-46); Hemoglobin 14.9 g/dL (12.0-16.0); Lymphocytes Absolute Auto 2800 /uL (1100-4500); Mean Corpuscular Hemoglobin 30.7 PG (26-34); Mean Corpuscular Volume 90.2 fL (80-100); Monocytes Absolute Auto 500 /uL (0-900); Monocytes Percent Auto 4.9 % (3-14); Neutrophils Absolute Auto 6500 /uL (1500-7000); Neutrophils Percent Auto 65.2 % (50-75); Platelet Count 227 X10^3/uL (150-400); Red Blood Cell Count 4.85 X10^6/uL (4.0-5.2); White Blood Cell Count 9.9 X10^3/uL (4.5-11.0)
[2020-10-05 17:37] LABS: Prothrombin Time 11.1 SECONDS (10.1-12.7)
[2020-10-05 17:40] LABS: PTT Partial Thromboplastin Tim 30 SECONDS (26.4-36.2)
[2020-10-05 17:43] LABS: Alanine Aminotransferase 27 IU/L (<35); Albumin 4.4 g/dL (3.5-5.0); Albumin Globulin Ratio 1.4 (1.0-2.8); Alkaline Phosphatase 65 U/L (38-126); Aspartate Aminotransferase 26 IU/L (14-36); BUN Creatinine Ratio 22.9 (6-22); Bilirubin Total 0.3 mg/dL (0.2-1.3); Blood Urea Nitrogen 22 mg/dL (7-17); Calcium 9.5 mg/dL (8.4-10.2); Carbon Dioxide 25 mmol/L (22-32); Chloride 106 mmol/L (98-107); Estimated Glomerular Filt Rate 59.1 mL/min (>60); Globulin 3.1 g/dL (1.7-4.1); Glucose 97 mg/dL (80-110); HEMOLYSIS < 15 (0-50); Lipase 251 U/L (23-300); Potassium 4.3 mmol/L (3.4-5.1); Sodium 137 mmol/L (137-145); Total Protein 7.5 g/dL (6.3-8.2)
[2020-10-05 17:59] LABS: Procalcitonin 0.04 ng/mL (<0.5)
[2020-10-05] MEDS: diphenhydrAMINE 50 MG/ML VIAL 25 MG IV (18:25)
[2020-10-05] MEDS: methylPREDNISolone 125 MG/2 ML VIAL IV (18:26)
--- NOTE | 2020-10-05 18:28 | ED.FEMALEGU ---
HPI - Female Genitourinary General Chief complaint: Urogenital-Female Stated complaint: poss urine infection Time Seen by Provider: 10/05/20 17:54 Source: patient Mode of arrival: Ambulatory Limitations: no limitations History of Present Illness HPI Narrative: With ureteral cancer, receives care at [facility] and has history of chemotherapy presents and suprapubic pain. She she states she has also had some foul-smelling urine and is concerned that she has an infection. She has a very complex relatively recent history including surgery over the summer in [place] with a a right-sided nephrectomy and removal of ureter as well. She denies any vaginal bleeding or discharge. She has had no runny nose, sore throat or cough. She states her pain is worse with motion and improves with rest and at its worse is severe in its intensity. MD Complaint: dysuria and UTI Onset (ago): day(s) Location: suprapubic Severity: severe Quality: Aching, Burning and Sharp Duration: constant Exacerbating factors: movement Urinary symptoms: Dysuria and Foul Smelling Urine Patient : No Related Data Allergies Allergy/AdvReac Type Severity Reaction Status Date / Time ciprofloxacin [From CIPRO] Allergy Unknown Hives Verified 10/05/20 17:22 Iodinated Contrast Media Allergy Unknown Hives Verified 10/05/20 17:22 Latex, Natural Rubber Allergy Verified 10/05/20 17:22 Review of Systems Constitutional Constitutional: Denies chills, Denies fatigue, Denies fever(s), Denies frequent falls, Denies lethargy and Denies weakness Eyes Eyes: Denies change in vision, Denies eye discharge, Denies irritation and Denies loss of vision ENT Ears, Nose, Mouth, and Throat: Denies change in voice, Denies dizziness, Denies neck pain, Denies sore throat and Denies throat swelling Cardiovascular Cardiovascular: Denies chest pain, Denies irregular heart rhythm, Denies lightheadedness, Denies palpitations, Denies dyspnea, Denies dyspnea on exertion and Denies orthopnea Respiratory Respiratory: Denies cough, Denies dyspnea, Denies dyspnea on exertion and Denies wheezing Gastrointestinal Gastrointestinal: Denies abdominal pain, Denies change in bowel habits, Denies diarrhea, Denies nausea and Denies vomiting Genitourinary Genitourinary: Reports dysuria Genitourinary: Reports dysuria and Reports pelvic pain Musculoskeletal Musculoskeletal: Denies neck pain and Denies numbness Integumentary/Breasts Skin/Breast: Denies pruritus, Denies erythema, Denies rash and Denies wounds Neurologic Neurologic: Denies behavioral changes, Denies confusion, Denies dizziness, Denies frequent falls, Denies loss of vision, Denies numbness and Denies weakness Psychiatric Psychiatric: Denies anxiety, Denies behavioral changes, Denies confusion, Denies depression, Denies homicidal ideation and Denies suicidal ideation Endocrine Endocrine: Denies fatigue, Denies flushing and Denies palpitations Hematologic/Lymphatic Hematologic/Lymphatic: Denies easy bruising Allergic/Immunologic Allergic/Immunologic: Denies urticaria, Denies throat swelling and Denies wheezing Patient History Medical History Bilateral hydronephrosis Chronic pain of lower extremity, bilateral Migraine PTSD (post-traumatic stress disorder) Ureteral duplication, left Surgical History Status post breast lumpectomy Status post hysterectomy (~1989) alcohol intake frequency: a few times a month Substance Use Type: marijuana Exam Narrative Exam Narrative: GENERAL: [60] year old patient appears stated age. Well-nourished, well-developed patient, in mild distress. HEAD: Atraumatic. Normocephalic. EYES: Pupils equal round and reactive. Extraocular motions intact. No scleral icterus. No injection or drainage. ENT: Nose without bleeding, purulent drainage. Throat without erythema, tonsillar hypertrophy or exudate. Airway patent. NECK: Trachea midline. Non tender CARDIOVASCULAR: Regular rate and rhythm without murmurs, gallops, or rubs. RESPIRATORY: Clear to auscultation. Breath sounds equal bilaterally. No wheezes, rales, or rhonchi. GASTROINTESTINAL: Abdomen soft, moderate midline and suprapubic abdominal pain, nondistended. EXTREMITIES: No edema or joint tenderness. BACK: Nontender without deformity or crepitance. No flank tenderness. NEURO: AOx3. SKIN: No rash or erythema of visible areas Initial Vital Signs Initial Vital Signs: Vital Signs Temperature 97.4 F L 10/05/20 14:29 Pulse Rate 64 10/05/20 14:29 Respiratory Rate 16 10/05/20 14:29 Blood Pressure 126/61 10/05/20 14:29 Pulse Oximetry 99 10/05/20 14:29 Course Orders Ordered: Discontinued Medications Diphenhydramine HCl (Diphenhydramine 50 Mg/Ml Vial) 25 mg IV NOW ONE Stop: 10/05/20 17:58 Last Admin: 10/05/20 18:25 Dose: 25 mg Documented by: ASH Sodium Chloride (Normal Saline 0.9%) 1,000 mls @ 1,000 mls/hr IV BOLUS ONE Stop: 10/05/20 18:09 Last Infusion: 10/05/20 18:25 Dose: 0 mls/hr Documented by: Admin: 10/05/20 17:26 Dose: 1,000 mls/hr Documented by: ASH Methylprednisolone (Methylprednisolone 125 Mg/2 Ml Vial) 125 mg IV NOW ONE Stop: 10/05/20 17:58 Last Admin: 10/05/20 18:26 Dose: 125 mg Documented by: ASH Ondansetron HCl (Ondansetron 4 Mg/2 Ml Inj) 4 mg IV NOW ONE Stop: 10/05/20 17:11 Last Admin: 10/05/20 17:59 Dose: Not Given Documented by: ASH Vital Signs Vital signs: Vital Signs - 8 hr 10/05/20 14:29 Temperature 97.4 F L Pulse Rate 64 Respiratory Rate 16 Blood Pressure 126/61 Pulse Oximetry 99 MDM - Female Genitourinary Lab Data Result diagrams: 10/05/20 17:20 10/05/20 17:20 Labs: Lab Results 10/05/20 10/05/20 10/05/20 Range/Units 17:20 17:20 17:20 WBC 9.9 (4.5-11.0) X10^3/uL RBC 4.85 (4.0-5.2) X10^6/uL Hgb 14.9 (12.0-16.0) g/dL Hct 43.8 (36-46) % MCV 90.2 (80-100) fL MCH 30.7 (26-34) PG MCHC 34.0 (30-36) % RDW 14.0 (11.6-14.8) % Plt Count 227 (150-400) X10^3/uL Neut % (Auto) 65.2 (50-75) % Lymph % (Auto) 28.0 (25-40) % Johnston % (Auto) 4.9 (3-14) % Eos % (Auto) 1.2 L (2-4) % Baso % (Auto) 0.7 (0-2) % Neut # (Auto) 6500 (9485-4991) /uL Lymph # (Auto) 2800 (2601-9294) /uL Johnston # (Auto) 500 (0-900) /uL Eos # (Auto) 100 (0-450) /uL Baso # (Auto) 100 (0-100) /uL PT 11.1 (10.1-12.7) SECONDS INR 1.0 (0.9-1.3) APTT 30 (26.4-36.2) SECONDS Sodium 137 (137-145) mmol/L Potassium 4.3 (3.4-5.1) mmol/L Chloride 106 (98-107) mmol/L Carbon Dioxide 25 (22-32) mmol/L BUN 22 H (7-17) mg/dL Creatinine 0.96 (0.52-1.04) mg/dL Estimated GFR 59.1 L (>60) mL/min BUN/Creatinine Ratio 22.9 H (6-22) Glucose 97 (80-110) mg/dL Lactate (0.7-2.1) mmol/L Calcium 9.5 (8.4-10.2) mg/dL Total Bilirubin 0.3 (0.2-1.3) mg/dL AST 26 (14-36) IU/L ALT 27 (<35) IU/L Alkaline Phosphatase 65 (38-126) U/L Total Protein 7.5 (6.3-8.2) g/dL Albumin 4.4 (3.5-5.0) g/dL Globulin 3.1 (1.7-4.1) g/dL Albumin/Globulin Ratio 1.4 (1.0-2.8) Lipase 251 (23-300) U/L Procalcitonin 0.04 (<0.5) ng/mL 10/05/20 Range/Units 17:20 WBC (4.5-11.0) X10^3/uL RBC (4.0-5.2) X10^6/uL Hgb (12.0-16.0) g/dL Hct (36-46) % MCV (80-100) fL MCH (26-34) PG MCHC (30-36) % RDW (11.6-14.8) % Plt Count (150-400) X10^3/uL Neut % (Auto) (50-75) % Lymph % (Auto) (25-40) % Johnston % (Auto) (3-14) % Eos % (Auto) (2-4) % Baso % (Auto) (0-2) % Neut # (Auto) (8858-7623) /uL Lymph # (Auto) (2189-0428) /uL Johnston # (Auto) (0-900) /uL Eos # (Auto) (0-450) /uL Baso # (Auto) (0-100) /uL PT (10.1-12.7) SECONDS INR (0.9-1.3) APTT (26.4-36.2) SECONDS Sodium (137-145) mmol/L Potassium (3.4-5.1) mmol/L Chloride (98-107) mmol/L Carbon Dioxide (22-32) mmol/L BUN (7-17) mg/dL Creatinine (0.52-1.04) mg/dL Estimated GFR (>60) mL/min BUN/Creatinine Ratio (6-22) Glucose (80-110) mg/dL Lactate 1.0 (0.7-2.1) mmol/L Calcium (8.4-10.2) mg/dL Total Bilirubin (0.2-1.3) mg/dL AST (14-36) IU/L ALT (<35) IU/L Alkaline Phosphatase (38-126) U/L Total Protein (6.3-8.2) g/dL Albumin (3.5-5.0) g/dL Globulin (1.7-4.1) g/dL Albumin/Globulin Ratio (1.0-2.8) Lipase (23-300) U/L Procalcitonin (<0.5) ng/mL Urine Dip Bedside Urine Glucose Negative Bedside Urine Bilirubin - Negative Bedside Urine Ketone - Negative Urine Specific Dexter 1.030 Bedside Urine Occult Blood - Negative Bedside Urine pH 6.0 Bedside Urine Protein - Negative Bedside Urine Urobilinogen - Negative Bedside Urine Nitrite - Negative Bedside Urine Leukocytes - Negative Esterase Imaging Data CT scan - abdomen/pelvis: Radiologist's Impression: Chart Viewer Diagnostics DATE TYPE STATUS REF RANGE/AUTHOR Hx Today 18:38 Eric Hope 04/20/20 16:05 Verna Stallings 04/20/20 16:05 Verna Stallings 04/20/20 00:00 GoldJose pillai 11/03/19 02:22 Stephen Coats 08/28/19 00:00 Stephen Coats 08/24/19 00:00 JakubNew 04/16/19 00:00 Aicha Wilson 11/13/18 00:00 EduardDenzelmely 03/12/18 12:23 Ronald Raymundo Tina M 60, F1 [facility], Main ED R13 97.522kg Urogenital-Female Search Chart No Data to Display No Data to Display Hives Hives No Data to Display Today 14:29 Sandra Grijalva 60 F [address] [id number] Scan ReportSigned Patient: Sandra Grijalva MMR#: [id number]: [id number]:[id number]/Sex: 60 / FDate of Service: 10/05/20Loc: EDAccession Number: [id number] Procedure: CT abdomen pelvis w con Ordering Provider: Richie Toney D.O. PROCEDURE: CT ABDOMEN PELVIS W CON INDICATIONS: severe pelvic pain, chills, complex history TECHNIQUE: After the administration of intravenous contrast, 5 mm thick sections acquired from the diaphragm to the symphysis. 5 mm coronal and sagittal reformats were acquired. For radiation dose reduction, the following was used: automated exposure control, adjustment of mA and/or kV according to patient size. COMPARISON: [facility], CT, CT KIDNEY URETER BLADDER (KUB), 08/24/2019, 11:50. FINDINGS: Image quality: Excellent. ABDOMEN: Lung bases: Lung bases are clear. Heart size is normal. Solid organs: Liver is normal in size and enhancement. Gallbladder is unremarkable. Biliary system is non dilated. Pancreas enhances normally. Spleen is normal in size and enhancement. No adrenal nodules. Interval resection of right kidney and right ureter. Left kidney is unremarkable. There are left peripelvic cysts and there is a left extrarenal pelvis. The appearance is not significantly changed compared to the previous study. Peritoneum and bowel: Bowel loops demonstrate normal wall thickness and caliber. No free fluid or air. Sigmoid diverticulosis without evidence of diverticulitis. Nodes and vessels: No retroperitoneal or mesenteric adenopathy by size criteria. Aorta and inferior vena cava are normal in size. Miscellaneous: No ventral hernias. PELVIS: Genitourinary: Bladder wall thickness is normal. Miscellaneous: No inguinal hernias or adenopathy. Uterus is surgically absent. Bones: No suspicious bony lesions. No vertebral body compression fractures. IMPRESSION: 1. Interval resection of right kidney and right ureter. 2. No evidence of metastatic disease in the abdomen and pelvis. 3. Unchanged appearance of left kidney, likely representing peripelvic cysts and extrarenal pelvis. 4. Remote hysterectomy. 5. Sigmoid diverticulosis without evidence of diverticulitis. 6. No evidence of acute abdominal process. Dictated by: Eric Hope M.D. on 10/05/2020 at 19:18 Approved by: Eric Hope M.D. on 10/05/2020 at 19:23 Discharge Plan Departure Patient Disposition: Home Clinical Impression: Dysuria Abdominal pain Qualifiers: Abdominal location: generalized Qualified Code(s): R10.84 - Generalized abdominal pain Instructions: DI for Dysuria -- Adult Activity Restrictions/Additional Instructions: *You have been diagnosed with [dysuria and abdominal pain. Exam, urine, lab work and imaging are very reassuring] *What to do: *continue to take medications as directed *Follow up with your primary care provider in 2-3 days, call for an appointment. Let them know you were seen in the Emergency Department and that we ask that you be seen in follow up *Return to ER if you should have any new, worsening or concerning symptoms Referrals: Sherry Santana MD [Primary Care Provider] -
--- NOTE | 2020-10-05 18:38 | DI.CT.S_ITS ---
PROCEDURE: CT ABDOMEN PELVIS W CON INDICATIONS: severe pelvic pain, chills, complex history TECHNIQUE: After the administration of intravenous contrast, 5 mm thick sections acquired from the diaphragm to the symphysis. 5 mm coronal and sagittal reformats were acquired. For radiation dose reduction, the following was used: automated exposure control, adjustment of mA and/or kV according to patient size. COMPARISON: [facility], CT, CT KIDNEY URETER BLADDER (KUB), 08/24/2019, 11:50. FINDINGS: Image quality: Excellent. ABDOMEN: Lung bases: Lung bases are clear. Heart size is normal. Solid organs: Liver is normal in size and enhancement. Gallbladder is unremarkable. Biliary system is non dilated. Pancreas enhances normally. Spleen is normal in size and enhancement. No adrenal nodules. Interval resection of right kidney and right ureter. Left kidney is unremarkable. There are left peripelvic cysts and there is a left extrarenal pelvis. The appearance is not significantly changed compared to the previous study. Peritoneum and bowel: Bowel loops demonstrate normal wall thickness and caliber. No free fluid or air. Sigmoid diverticulosis without evidence of diverticulitis. Nodes and vessels: No retroperitoneal or mesenteric adenopathy by size criteria. Aorta and inferior vena cava are normal in size. Miscellaneous: No ventral hernias. PELVIS: Genitourinary: Bladder wall thickness is normal. Miscellaneous: No inguinal hernias or adenopathy. Uterus is surgically absent. Bones: No suspicious bony lesions. No vertebral body compression fractures. IMPRESSION: 1. Interval resection of right kidney and right ureter. 2. No evidence of metastatic disease in the abdomen and pelvis. 3. Unchanged appearance of left kidney, likely representing peripelvic cysts and extrarenal pelvis. 4. Remote hysterectomy. 5. Sigmoid diverticulosis without evidence of diverticulitis. 6. No evidence of acute abdominal process. Dictated by: Eric Hope M.D. on 10/05/2020 at 19:18 Approved by: Eric Hope M.D. on 10/05/2020 at 19:23
[2020-10-05 20:36] VITALS: BP 122/31; PULSE 70; RESP 12; O2SAT 99
== END 2020-10-05 20:38 | disposition home or self-care (01) ==
PROVIDERS: Emergency Medicine; Emergency Provider Emergency Medicine; Family Provider Internal Medicine; PCP Internal Medicine
DX: R30.0 Dysuria (principal); R10.84 Generalized abdominal pain
CPT/HCPCS: 36415; 74177; 80053; 81003; 83605; 83690; 84145; 85025; 85610; 85730; 96361; 96374; 96375; 99284; J1200; J2930

== ENCOUNTER → 2021-01-16 13:58 | Outpatient (CLI) | payer MEDICARE, OTHER, SELFPAY ==
[2021-01-16 15:26] LABS: Alanine Aminotransferase 35 IU/L (<35); Albumin 4.2 g/dL (3.5-5.0); Albumin Globulin Ratio 1.4 (1.0-2.8); Alkaline Phosphatase 53 U/L (38-126); Aspartate Aminotransferase 32 IU/L (14-36); Bilirubin Total 0.5 mg/dL (0.2-1.3); Blood Urea Nitrogen 17 mg/dL (7-17); Calcium 9.5 mg/dL (8.4-10.2); Carbon Dioxide 28 mmol/L (22-32); Chloride 106 mmol/L (98-107); Estimated Glomerular Filt Rate 52.7 mL/min (>60); Glucose 98 mg/dL (80-110); HEMOLYSIS < 15 (0-50); Potassium 4.6 mmol/L (3.4-5.1); Sodium 140 mmol/L (137-145); Total Protein 7.2 g/dL (6.3-8.2)
[2021-01-16 15:43] LABS: Add Manual Diff / Slide Review NO; Basophils Absolute Auto 0 /uL (0-100); Basophils Percent Auto 0.3 % (0-2); Eosinophils Absolute Auto 100 /uL (0-450); Eosinophils Percent Auto 1.2 % (2-4); Hematocrit 43.2 % (36-46); Hemoglobin 14.6 g/dL (12.0-16.0); Lymphocytes Absolute Auto 2100 /uL (1100-4500); Lymphocytes Percent Auto 26.5 % (25-40); Mean Corpuscular HGB Conc 33.9 % (30-36); Mean Corpuscular Hemoglobin 30.7 PG (26-34); Mean Corpuscular Volume 90.5 fL (80-100); Monocytes Absolute Auto 500 /uL (0-900); Monocytes Percent Auto 6.2 % (3-14); Neutrophils Absolute Auto 5200 /uL (1500-7000); Neutrophils Percent Auto 65.8 % (50-75); Platelet Count 226 X10^3/uL (150-400); Red Blood Cell Count 4.77 X10^6/uL (4.0-5.2); Red Cell Distribution Width 14.6 % (11.6-14.8); White Blood Cell Count 7.8 X10^3/uL (4.5-11.0)
[2021-01-16 15:58] LABS: Ferritin 89 ng/mL (11-264)
== END ==
PROVIDERS: Family Provider Internal Medicine; PCP Internal Medicine; Referring Provider Urology; Visit Provider Urology
DX: Z08 Encounter for follow-up examination after completed treatment for malignant neoplasm (principal); I10 Essential (primary) hypertension; C66.1 Malignant neoplasm of right ureter; Z85.51 Personal history of malignant neoplasm of bladder; R79.89 Other specified abnormal findings of blood chemistry
CPT/HCPCS: 36415; 80053; 82728; 85025

== ENCOUNTER → 2021-01-17 11:03 | Outpatient (CLI) | payer MEDICARE, OTHER, SELFPAY ==
--- NOTE | 2021-01-17 | DI.CT.S_ITS ---
PROCEDURE: CT CHEST ABD PEL W CON INDICATIONS: encounter for follow up examination after complete TECHNIQUE: After the administration of oral and intravenous contrast, axial sections acquired from the supraclavicular neck to the pubic symphysis. Coronal and sagittal reformats were performed. For radiation dose reduction, the following was used: automated exposure control, adjustment of mA and/or kV according to patient size. COMPARISON:[facility], CT, CT KIDNEY URETER BLADDER (KUB), 08/24/2019, 11:50. [facility], CT, CT ABDOMEN PELVIS W CON, 10/05/2020, 18:44. FINDINGS: Image quality: Excellent. CHEST: Lower Neck: No enlarged lymph nodes. Thyroid: Heterogeneous 1.3 cm area of hypoattenuation in the left lower pole. Axillae: No enlarged lymph nodes. Chest Wall: Unremarkable. Lungs and Airways: 6 mm juxta fissural nodule in the right middle lobe, 2/179. 4 mm linear nodular density in the lingula, 2/205. There are three other juxta fissural, linear and triangular shaped nodules associated with the left major fissure at a mid lung level within the left lower lobe, the largest measuring 6 mm, 2/154. No suspicious parenchymal masses or consolidations. Pleura: No pneumothorax or pleural effusions. Heart: Heart size is normal. No pericardial effusion. Thoracic Vessels: The aorta and pulmonary arteries demonstrate normal size. Mediastinum and Janet: No enlarged lymph nodes. Esophagus: No wall thickening. No hiatal hernia. ABDOMEN: Liver: Unremarkable. Gallbladder: Normal. Biliary ducts: Unremarkable. Pancreas: Unremarkable. Spleen: Unremarkable. Adrenal Glands: Mild low-density thickening in the body of the left adrenal gland, similar compared to prior study and too small to accurately characterize internal attenuation. No right adrenal nodule. Kidneys and Ureters: Right nephro ureterectomy. Left kidney demonstrates mild hydronephrosis and prominence of the extrarenal pelvis, but normal caliber ureter there is a tiny angiomyolipoma in the cortex of the upper pole. The left ureter is normal. Stomach and Bowel: Stomach, small bowel loops, and colon are unremarkable. Sigmoid diverticulosis without acute diverticulitis. Peritoneum: No abnormal intraperitoneal fluid. No free air. Ventral Wall: No hernia. Abdominal Nodes: No retroperitoneal or mesenteric adenopathy by size criteria. Vessels: Aorta and inferior vena cava are normal in size. PELVIS: Pelvic Organs: Unremarkable. The uterus is surgically absent and ovarian tissue on the left appears normal. Bladder: Unremarkable. Pelvic Nodes: No enlarged lymph nodes. Miscellaneous: In the resection bed of the right ureter, at the level of the mid pelvis, there is a soft tissue nodule with irregular margins measuring 2.3 x 1.8 cm, increasing in size compared to the prior study and not present on pre resection scan. There is no significant enhancement. Bones: Degenerative disc height loss at L5-S1 with endplate spur formation. No suspicious osseous lesions. IMPRESSION: 1. No evidence of metastatic disease in the chest, abdomen, or pelvis. 2. Lung nodules bilaterally are most consistent in position and morphology with juxta fissural lymph nodes. 3. There is 2.3 cm soft tissue focus in the right pelvis along the course of the resected right ureter. While this is probably residual ovarian tissue, recurrent disease cannot be excluded. Pelvic ultrasound and/or pelvic MRI is recommended to document ovaries if present. Correlate with any surgical history of oophorectomy. 4. Mild, stable low-density thickening in the body of the left adrenal gland most likely an adenoma. No significant growth. 5. 1.3 cm left thyroid nodule. Consider thyroid ultrasound. Dictated by: Cass Grimaldo M.D. on 01/17/2021 at 15:57 Approved by: Cass Grimaldo M.D. on 01/17/2021 at 16:19
== END ==
PROVIDERS: Family Provider Internal Medicine; PCP Internal Medicine; Referring Provider Urology; Visit Provider Urology
DX: Z08 Encounter for follow-up examination after completed treatment for malignant neoplasm (principal); Z85.51 Personal history of malignant neoplasm of bladder; R91.8 Other nonspecific abnormal finding of lung field; E04.1 Nontoxic single thyroid nodule; Z90.710 Acquired absence of both cervix and uterus
CPT/HCPCS: 71260; 74177

== ENCOUNTER → 2021-06-06 09:11 | Outpatient (CLI) | payer MEDICARE, OTHER, SELFPAY ==
[2021-06-06 10:13] LABS: Alanine Aminotransferase 35 IU/L (<35); Albumin 4.8 g/dL (3.5-5.0); Albumin Globulin Ratio 1.5 (1.0-2.8); Alkaline Phosphatase 64 U/L (38-126); Aspartate Aminotransferase 31 IU/L (14-36); BUN Creatinine Ratio 15.8 (6-22); Bilirubin Total 0.6 mg/dL (0.2-1.3); Blood Urea Nitrogen 16 mg/dL (7-17); Calcium 10.1 mg/dL (8.4-10.2); Carbon Dioxide 27 mmol/L (22-32); Chloride 103 mmol/L (98-107); Estimated Glomerular Filt Rate 55.5 mL/min (>60); Globulin 3.3 g/dL (1.7-4.1); Glucose 139 mg/dL (80-110); HEMOLYSIS < 15 (0-50); Potassium 4.4 mmol/L (3.4-5.1); Sodium 140 mmol/L (137-145); Total Protein 8.1 g/dL (6.3-8.2)
--- NOTE | 2021-06-06 10:37 | DI.CT.S_ITS ---
PROCEDURE: CT CHEST ABD PEL W CON INDICATIONS: Malignant neoplasm of right ureter TECHNIQUE: After the administration of oral and intravenous contrast, axial sections acquired from the supraclavicular neck to the pubic symphysis. Coronal and sagittal reformats were performed. For radiation dose reduction, the following was used: automated exposure control, adjustment of mA and/or kV according to patient size. COMPARISON: [facility], CT, CT CHEST ABD PEL W CON, 01/17/2021, 11:59. FINDINGS: Image quality: Excellent. CHEST: Lower Neck: No enlarged lymph nodes. Thyroid: Previously described 1.3 cm focus of hypoattenuation involving the inferior aspect of the left thyroid lobe is not as conspicuous on today's exam. There is a possible 7 mm inferior left thyroid lobe hypodensity. Axillae: No enlarged lymph nodes. Chest Wall: Unremarkable. Lungs and Airways: No consolidation or suspicious nodules. Stable triangular-shaped juxta fissural nodules are again noted with the largest measuring 6 mm abutting the right minor fissure within the right middle lobe (image 154/series 3). Largest left-sided triangular-shaped nodule abuts the left major fissure within the left lower lobe seen on image 148/series 3. This also measures 6 mm and is stable. Stable 4 mm nodule along the lingula anteriorly (image 184/series 3). No new or suspicious pulmonary nodules or mass lesions. Pleura: No pneumothorax or pleural effusions. Heart: Heart size is normal. No pericardial effusion. Thoracic Vessels: The aorta and pulmonary arteries demonstrate normal size. Mediastinum and Janet: No enlarged lymph nodes. Esophagus: No wall thickening. No hiatal hernia. ABDOMEN: Liver: Unremarkable. Gallbladder: Unremarkable. Biliary ducts: Unremarkable. Pancreas: Unremarkable. Spleen: Unremarkable. Adrenal Glands: Stable appearance of mild thickening of the body of the left adrenal gland. No right-sided adrenal nodules. Kidneys and Ureters: Status post right nephrectomy as well as right ureterectomy with stable postsurgical changes. Stable appearance of mild left hydronephrosis and prominent left extrarenal pelvis. There is normal caliber of the left ureter. No ureteral stone. No periureteral stranding. Stable appearance of subcentimeter fat attenuation lesion involving the superior aspect of the left kidney compatible with an angiomyolipoma. Stomach and Bowel: Stomach, small bowel loops, and colon are unremarkable. Stable appearance of sigmoid diverticulosis without acute diverticulitis. Peritoneum: No abnormal intraperitoneal fluid. No free air. Ventral Wall: No hernia. Abdominal Nodes: No retroperitoneal or mesenteric adenopathy by size criteria. Vessels: Aorta and inferior vena cava are normal in size. PELVIS: Pelvic Organs: Status post hysterectomy. Stable appearance of normal appearing left adnexal/ovarian tissue. Bladder: Unremarkable. Pelvic Nodes: No enlarged lymph nodes. Miscellaneous: No inguinal hernias. Within the resection bed of the distal right ureter, there is a persistent soft tissue nodule with irregular margins measuring approximately 2.2 x 1.6 cm in size. It is not significantly changed compared to the prior study. No new mass lesions in the vicinity or new pelvic adenopathy. Bones: No acute vertebral body compression fractures. Multilevel spondylitic changes throughout the imaged spine. No suspicious osseous lesions. IMPRESSION: 1. No evidence for metastatic disease in the chest, abdomen, or pelvis. No acute abnormalities identified. 2. Stable appearance of 2.2 cm irregular soft tissue focus in the right pelvis noted in the resection bed of the distal right ureter. As before, this may represent residual ovarian tissue. Recurrent disease not completely excluded although no interval change in size or appearance. Recommend correlation with surgical history to determine if patient has undergone right-sided oophorectomy. Confirmation with pelvic ultrasound or pelvic MRI can be considered if clinically indicated. 3. Previously noted 1.3 cm inferior left thyroid lobe nodule is not definitively visualized on today's examination. There is a possible 7 mm inferior left thyroid lobe nodule. 4. Multiple fissural based pulmonary nodules likely representing intrafissural lymph nodes based on location and morphology. These have not changed in size or shape. 5. Stable appearance of low-density thickening of the left adrenal gland likely representing an adenoma. Dictated by: Tex Gordon M.D. on 06/06/2021 at 15:03 Approved by: Tex Gordon M.D. on 06/06/2021 at 15:37
== END ==
PROVIDERS: Family Provider Internal Medicine; Referring Provider Urology; Visit Provider Urology
DX: C66.1 Malignant neoplasm of right ureter (principal); Z85.51 Personal history of malignant neoplasm of bladder; R91.8 Other nonspecific abnormal finding of lung field
CPT/HCPCS: 36415; 71260; 74177; 80053; Q9967

== ENCOUNTER → 2021-08-11 10:24 | Outpatient (CLI) | payer MEDICARE, OTHER, SELFPAY ==
--- NOTE | 2021-08-11 | DI.RAD.S_ITS ---
PROCEDURE: FL BARIUM SWALLOW W SPEECH INDICATIONS: Dysphagia, unspecified COMPARISON: None. TECHNIQUE: Examination was conducted in conjunction with speech pathology per standard protocol. In the lateral projection, filming was performed of the patient swallowing. AP projection filming may also be performed with patient swallowing. COMPARISON: FINDINGS: Function: The oral preparatory phase appears normal, with proper containment. The subsequent oral propulsive phase, pharyngeal phase, and esophageal phase of swallowing also appear normal with all proffered substances. No laryngotracheal penetration or aspiration. No pathologic vallecular pooling. Morphology: No cricopharyngeal bar is identified. No cervical esophageal webs. No Zenker's diverticulum. No strictures. Of note, patient was able to pass a standard barium tablet without difficulty. IMPRESSION: Negative modified barium swallow study. Please see separate speech pathology report for further details. Dictated by: Tex Gordon M.D. on 08/11/2021 at 14:15 Approved by: Tex Gordon M.D. on 08/11/2021 at 14:16
--- NOTE | 2021-08-14 11:09 | ST.SWALLOW ---
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 Pt c/o her throat closing when she swallows and food sticking (pointing to sternal notch area). This difficulty is episioic. Pt described the swallow difficulty as always when she takes a first bite, her swallow stops, food or liqiuds not moving up or down and she cannot breathe. She will at times, experience pain in her chest near her sternum . Trigger foods include pepper and spicy foods. She currently can only swallow pills in yogurt. Pt's medical history includes GERD with manometry about 15 years ago. She was taking omneprozol, but stopped 10 years ago, worried about intermediate manager effects. She reported a history of allergies 30 years ago as well as hives when receiving contrast for MRI. She noted compressed vertebrae in her cervical spine that have not been treated and she c/o migraine headaches. Subjective Observations Pt was seated in the fluoroscopy chair and provided with instruction and procedures. She indicated she understood and agreed to proceed. Patient Positioning Position View Lat-A/P Imaging Lateral View Textures Administered Trials Presented Thin Liquid via Spoon,Thin Liquid via Cup,Laura Liquid via Spoon,Laura Liquid via Cup,Pudding Thick Liquid via Spoon,Regular Textures Oral Phase Source: MBSIMP (TM) (C) Bolus Specific Scoring Grid Bolus Prep/Mastication WFL Bolus Transport/Lingual Motion WFL A/P Lingual Propulsion Delay No Oral Residue WFL Nasal Regurgitation No Additional Oral Phase Observations OME indicated that the ot's structures and function were WNL for ROM and strength. Pt has natural teeth in good hygiene. DKS was observed to be WNL. Pharyngeal Phase Source: MBSIMP (TM) (C) Bolus Specific Scoring Grid Delayed Initiation of Pharyngeal Swallow No Soft Palate Elevation No Impairment (WNL) Tongue Base Strength/Range of Motion Minimal Impairment Residue Along the Tongue Base Yes Clearance of Residue Along Tongue Base WFL Laryngeal Elevation No Impairment (WNL) Anterior Hyoid Movement No Impairment (WNL) Epiglottic Range of Motion No Impairment (WNL) Vallecular Residue Yes Clearance of Vallecular Residue Minimal Impairment Laryngeal Vestibular Closure No Impairment (WNL) Pharyngeal Stripping Wave Minimal Impairment Posterior Pharyngeal Wall Residue Yes Clearance of Posterior Pharyngeal Wall WFL Residue Upper Esophageal Sphincter Opening Mild Impairment Residue in the Pyriform Sinuses Yes Clearance of Residue in the Pyriform Mild Impairment Sinuses Esophageal Clearance Upright Position WFL Pharyngoesophageal Backflow Observed No Additional Pharyngeal Phase Observations Prompt swallow response with good hyolaryngeal elevation and movement. Epiglottal inversion and laryngeal vestibular seal was WNL. Minimal to mild tongue base weakness noted with minimal residue in the valeculla, pyriform sinuses, tongue base and posterior pharyngeal wall. The UES extension and duration of the UES also resulted in minimal pooling. The pharyngeal pooling described was cleared with spontaneous subsequent swallows. No penetration, or aspiration was observed. There was no s/sx of layngeal spasm or airway occlusion observed. A/P View Textures Administered Trials Presented Regular Textures A/P View Observations Vocal Fold Function Good Esophageal Function WFL Additional Observations Swallow of the barium tablet was as expected. No other trials were presented. Clinical Impressions Dysphagia Type Oropharyngeal swallow is WFL. Findings Given pt reports trigger foods, there may be an allergy response she experiences. Additionally, GERD may be a strong factor. Recommend F/U with n hvac technician residential and GI specialist. Patient Appropriate for Therapy No Recommendations Treatment Plan Recommended Referrals GI Consult Additional Recommended Referrals Safety Leader
== END ==
PROVIDERS: Family Provider Internal Medicine; PCP Internal Medicine; Referring Provider Surgery; Visit Provider Surgery
DX: R13.10 Dysphagia, unspecified (principal)
CPT/HCPCS: 74230; 92611

== ENCOUNTER → 2021-09-27 16:21 | Outpatient (CLI) | payer OTHER, MEDICARE, SELFPAY ==
--- NOTE | 2021-09-27 | DI.MG.S_ITS ---
BILATERAL DIGITAL SCREENING MAMMOGRAM 3D/2D WITH CAD: 09/27/2021 CLINICAL: Routine screening. Family history of breast cancer. Comparison is made to exams dated: 04/20/2020 mammogram, 11/13/2018 mammogram - [facility], 06/19/2017 mammogram - [facility], and 03/08/2016 mammogram - [facility]. There are scattered fibroglandular elements in both breasts. Current study was also evaluated with a Computer Aided Detection (CAD) system. No significant masses, calcifications, or other findings are seen in either breast. There has been no significant interval change. IMPRESSION: NEGATIVE There is no mammographic evidence of malignancy. A 1 year screening mammogram is recommended. This exam was interpreted at Station ID: [id number]. NOTE: For mammograms, a report in lay terms will be sent to the patient. Approximately 15% of breast malignancies will not be visualized mammographically. In the management of a palpable breast mass, a negative mammogram must not discourage biopsy of a clinically suspicious lesion. Electronically Signed By: Tereso fernandes/reji:09/28/2021 08:24:36 letter sent: Normal Exam ACR BI-RADS Category 1: Negative [id number]
== END ==
PROVIDERS: Family Provider Internal Medicine; PCP Internal Medicine; Referring Provider Internal Medicine; Visit Provider Internal Medicine
DX: Z12.31 Encounter for screening mammogram for malignant neoplasm of breast (principal); Z80.3 Family history of malignant neoplasm of breast
CPT/HCPCS: 77063; 77067

== ENCOUNTER → 2021-11-29 13:02 | Outpatient (CLI) | payer MEDICARE, OTHER, SELFPAY ==
[2021-11-29 14:18] LABS: Alanine Aminotransferase 39 IU/L (<35); Albumin 4.6 g/dL (3.5-5.0); Albumin Globulin Ratio 1.6 (1.0-2.8); Alkaline Phosphatase 63 U/L (38-126); Aspartate Aminotransferase 34 IU/L (14-36); BUN Creatinine Ratio 21.2 (6-22); Bilirubin Total 0.6 mg/dL (0.2-1.3); Blood Urea Nitrogen 22 mg/dL (7-17); Calcium 9.7 mg/dL (8.4-10.2); Carbon Dioxide 26 mmol/L (22-32); Chloride 103 mmol/L (98-107); Estimated Glomerular Filt Rate > 60 mL/min (>60); Globulin 2.9 g/dL (1.7-4.1); Glucose 103 mg/dL (80-110); HEMOLYSIS < 15 (0-50); Potassium 5.1 mmol/L (3.4-5.1); Sodium 139 mmol/L (137-145); Total Protein 7.5 g/dL (6.3-8.2)
[2021-11-29 14:19] LABS: Add Manual Diff / Slide Review NO; Basophils Absolute Auto 0 /uL (0-100); Basophils Percent Auto 0.2 % (0-2); Eosinophils Absolute Auto 100 /uL (0-450); Eosinophils Percent Auto 0.9 % (2-4); Hematocrit 45.4 % (36-46); Hemoglobin 15.5 g/dL (12.0-16.0); Lymphocytes Absolute Auto 2000 /uL (1100-4500); Lymphocytes Percent Auto 22.1 % (25-40); Mean Corpuscular HGB Conc 34.2 % (30-36); Mean Corpuscular Hemoglobin 30.1 PG (26-34); Monocytes Absolute Auto 600 /uL (0-900); Monocytes Percent Auto 6.3 % (3-14); Neutrophils Absolute Auto 6300 /uL (1500-7000); Neutrophils Percent Auto 70.5 % (50-75); Platelet Count 269 X10^3/uL (150-400); Red Blood Cell Count 5.16 X10^6/uL (4.0-5.2); Red Cell Distribution Width 14.3 % (11.6-14.8); White Blood Cell Count 8.9 X10^3/uL (4.5-11.0)
== END ==
PROVIDERS: Family Provider Internal Medicine; PCP Internal Medicine; Referring Provider Internal Medicine Hematology & Oncology; Visit Provider Internal Medicine Hematology & Oncology
DX: C68.9 Malignant neoplasm of urinary organ, unspecified (principal)
CPT/HCPCS: 36415; 80053; 85025

== ENCOUNTER → 2021-12-01 10:13 | Outpatient (CLI) | payer MEDICARE, OTHER, SELFPAY ==
--- NOTE | 2021-12-01 | DI.CT.S_ITS ---
PROCEDURE: CT CHEST ABD PEL W CON INDICATIONS: Malignant neoplasm of urinary organ TECHNIQUE: After the administration of oral and intravenous contrast, axial sections acquired from the supraclavicular neck to the pubic symphysis. Coronal and sagittal reformats were performed. For radiation dose reduction, the following was used: automated exposure control, adjustment of mA and/or kV according to patient size. COMPARISON: [facility], CT, CT KIDNEY URETER BLADDER (KUB), 08/24/2019, 11:50. [facility], CT, CT CHEST ABD PEL W CON, 06/06/2021, 10:40. FINDINGS: Image quality: Excellent. CHEST: Lower Neck: No enlarged lymph nodes. Thyroid: Unremarkable. Axillae: No enlarged lymph nodes. Chest Wall: Unremarkable. Lungs and Airways: No consolidation or suspicious nodules. Stable 5 mm inter fissural nodule is redemonstrated at the anterior right lung base. Pleura: No pneumothorax or pleural effusions. Heart: Heart size is normal. No pericardial effusion. Thoracic Vessels: The aorta and pulmonary arteries demonstrate normal size. Mediastinum and Janet: No enlarged lymph nodes. Esophagus: No wall thickening. No hiatal hernia. ABDOMEN: Liver: The liver is diffusely hypodense suggesting fatty infiltration. No hepatic lesions. Gallbladder: Unremarkable. Biliary ducts: Unremarkable. Pancreas: Unremarkable. Spleen: Unremarkable. Adrenal Glands: No right adrenal gland nodules. There is a stable left adrenal gland nodule which demonstrated low-density on the noncontrast CT dated August 24, 2019 suggesting an adrenal adenoma. Kidneys and Ureters: The right kidney is surgically absent. No suspicious soft tissue lesions within the right renal fossa. There are multiple low-density left pararenal cysts. 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 Stomach and Bowel: Stomach, small bowel loops, and colon are unremarkable. There are scattered sigmoid diverticula. No evidence for diverticulitis. The appendix is not visualized; however surgical clips are present in the region of the cecum in the lower quadrant suggesting prior appendectomy. Peritoneum: No abnormal intraperitoneal fluid. No free air. Ventral Wall: No hernia. Abdominal Nodes: No retroperitoneal or mesenteric adenopathy by size criteria. Vessels: Aorta and inferior vena cava are normal in size. PELVIS: Pelvic Organs: The uterus is not visualized and is presumably surgically absent. Bladder: Unremarkable. Pelvic Nodes: No enlarged lymph nodes. Miscellaneous: No inguinal hernias are seen. Bones: Unremarkable. IMPRESSION: 1. No findings to suggest tumor recurrence or new metastasis. Dictated by: Colette Al M.D. on 12/01/2021 at 13:25 Approved by: Colette Al M.D. on 12/01/2021 at 13:47
== END ==
PROVIDERS: Family Provider Internal Medicine; PCP Internal Medicine; Referring Provider Internal Medicine Hematology & Oncology; Visit Provider Internal Medicine Hematology & Oncology
DX: C68.9 Malignant neoplasm of urinary organ, unspecified (principal)
CPT/HCPCS: 71260; 74177; Q9967

== ENCOUNTER → 2021-12-22 13:53 | Outpatient (CLI) | payer MEDICARE, OTHER, SELFPAY ==
[2021-12-22 14:41] LABS: Add Manual Diff / Slide Review NO; Basophils Absolute Auto 0 /uL (0-100); Basophils Percent Auto 0.4 % (0-2); Eosinophils Absolute Auto 100 /uL (0-450); Eosinophils Percent Auto 1.7 % (2-4); Hematocrit 44.4 % (36-46); Hemoglobin 15.2 g/dL (12.0-16.0); Lymphocytes Absolute Auto 1900 /uL (1100-4500); Lymphocytes Percent Auto 25.4 % (25-40); Mean Corpuscular HGB Conc 34.3 % (30-36); Mean Corpuscular Hemoglobin 30.1 PG (26-34); Mean Corpuscular Volume 87.8 fL (80-100); Monocytes Absolute Auto 500 /uL (0-900); Monocytes Percent Auto 6.3 % (3-14); Neutrophils Absolute Auto 4900 /uL (1500-7000); Neutrophils Percent Auto 66.2 % (50-75); Platelet Count 256 X10^3/uL (150-400); Red Blood Cell Count 5.05 X10^6/uL (4.0-5.2); Red Cell Distribution Width 14.4 % (11.6-14.8); White Blood Cell Count 7.4 X10^3/uL (4.5-11.0)
[2021-12-23 02:09] LABS: Alanine Aminotransferase 51 IU/L (<35); Albumin 4.4 g/dL (3.5-5.0); Albumin Globulin Ratio 1.5 (1.0-2.8); Alkaline Phosphatase 54 U/L (38-126); Aspartate Aminotransferase 39 IU/L (14-36); BUN Creatinine Ratio 14.7 (6-22); Bilirubin Total 0.7 mg/dL (0.2-1.3); Blood Urea Nitrogen 14 mg/dL (7-17); Calcium 9.4 mg/dL (8.4-10.2); Carbon Dioxide 26 mmol/L (22-32); Chloride 105 mmol/L (98-107); Estimated Glomerular Filt Rate > 60 mL/min (>60); Glucose 91 mg/dL (80-110); HEMOLYSIS < 15 (0-50); Potassium 4.6 mmol/L (3.4-5.1); Sodium 139 mmol/L (137-145); Total Protein 7.4 g/dL (6.3-8.2)
== END ==
PROVIDERS: Family Provider Internal Medicine; PCP Internal Medicine; Referring Provider Internal Medicine Hematology & Oncology; Visit Provider Internal Medicine Hematology & Oncology
DX: C68.9 Malignant neoplasm of urinary organ, unspecified (principal)
CPT/HCPCS: 36415; 80053; 85025

== ENCOUNTER 2022-01-04 20:23 | Emergency (ER) | payer MEDICARE, OTHER, SELFPAY ==
[2022-01-04 20:32] VITALS: BP 103/73; PULSE 91; RESP 16; TEMP 36.4; O2SAT 98; BMI 34.4
--- NOTE | 2022-01-05 00:10 | ED_ITS ---
HPI - Back Pain/Injury <Edgar Monahan MD - Last Filed: 01/10/22 09:06> General Chief Complaint: Back Pain/Injury Stated Complaint: passive fecal incontinence, left leg loosing stren Time Seen by Provider: 01/04/22 23:57 History of Present Illness HPI Narrative: Patient here with . Complains of fecal incontinence that progressed from the past couple months to worsening this week. Has had weakness to the left leg as well. Patient has known lumbar spine disease. MRI below from 2 years ago. 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 At the time or the spine r ecommended surgery but patient was undergoing chemotherapy at that time and did not want to be around COVID exposure. Has not reconnected with ortho spine. Has not had MRI since then. [address] [address] Magnetic Resonance Report Signed Patient: Sandra Grijalva MR#: [id number] : 1960 Acct:[id number] Age/Sex: 59 / F Date of Service: 04/20/20 Loc: MRI Accession Number: [id number] ?? Procedure: MR lumbar spine wo con Ordering Provider: Sherry Santana MD PROCEDURE:? MR LUMBAR SPINE WO CON ? INDICATIONS:? LOW BACK PAIN ? TECHNIQUE:? Noncontrast sagittal T1 spin echo and T2 fast echo, sagittal STIR, axial T1 and T2 fast spin echo through the lumbar spine.? In cases with scoliosis, additional coronal T2 fast spin echo may be performed.? ? COMPARISON:? [facility], CT, CT KIDNEY URETER BLADDER (KUB), 08/24/2019, 11:50. ? FINDINGS:? Image quality:? Excellent.? ? Alignment and Curvature:? There is trace L2-L3 retrolisthesis.? ? Bone Marrow:? Marrow is of normal overall signal.? No acute vertebral body compression fractures.? ? Spinal Cord:? Conus medullaris terminates at the L1 level.? Visualized cord demonstrates normal signal and size.? ? Paraspinous Soft Tissues:? No paravertebral masses.? Left peripelvic renal cysts noted.? Right kidney is not definitely identified and may be atrophied. ? L1-L2:? Loss of disc signal.? Mild, diffuse disc bulge.? Mild bilateral facet hypertrophy.? No central stenosis.? Mild bilateral neural foraminal narrowing.? No neural compression. ? L2-L3:? Loss of disc signal.? Mild, diffuse disc bulge.? Mild bilateral facet hypertrophy.? No central stenosis.? No neural foraminal narrowing.? No neural compression. ? L3-L4:? Loss of disc signal.? Mild, diffuse disc bulge.? [id number] bilateral facet hypertrophy.? Mild narrowing of the central canal.? Mild bilateral neural foraminal narrowing.? No neural compression. ? L4-L5:? Loss of disc signal.? Moderate, diffuse disc bulge.? Mild bilateral facet hypertrophy.? Mild narrowing of the central canal.? Mild to moderate bilateral neural foraminal narrowing.? No neural compression. ? L5-S1:? Loss of disc signal and height.? Mild, diffuse disc bulge.? Mild bilateral facet hypertrophy.? No central stenosis.? [id number] bilateral neural foraminal narrowing.? No neural compression. ? ? IMPRESSION:? ? 1. Multilevel degenerative disc disease. ? 2. Multilevel facet arthropathy. ? 3. Mild L3-L4 and L4-L5 central canal narrowing. ? 4. Mild to moderate bilateral L4-L5 and L5-S1 neural foraminal narrowing.? Mild bilateral L1-L2 and L3-L4 neural foraminal narrowing. ? 5. No neural compression.? ? ? Dictated by: Verna Stallings MD, PhD on 04/20/2020 at 17:40 ? ? Approved by: Verna Stallings MD, PhD on 04/20/2020 at 17:45 ? Related Data Previous Rx's Medication Instructions Recorded oxycodone-acetaminophen 5 mg-325 1 tab PO Q8H PRN pain #1 tab 01/05/22 mg tablet (Percocet) Allergies Allergy/AdvReac Type Severity Reaction Status Date / Time ciprofloxacin [From CIPRO] Allergy Unknown Hives Verified 10/05/20 17:22 Iodinated Contrast Media Allergy Unknown Hives Verified 10/05/20 17:22 Latex, Natural Rubber Allergy Verified 10/05/20 17:22 Review of Systems <Edgar Monahan MD - Last Filed: 01/10/22 09:06> Review of Systems Narrative: GENERAL: Denies chills, fatigue, malaise, fever, sweats. HEENT: Denies sinus pain, ear pain, sore throat RESPIRATORY: Denies dyspnea, cough CARDIOVASCULAR: Denies chest pain, palpitations GASTROINTESTINAL: Denies nausea, vomiting, abdominal pain : Denies dysuria, frequency, hematuria MUSCULOSKELETAL: denies muscle or bony pain SKIN: Denies rash, skin lesions NEUROLOGIC: Negative for numbness, positive for incontinence, positive for leg weakness ROS Unobtainable: All systems reviewed & are unremarkable except as noted in HPI and below <Spencer Duke MD - Last Filed: 01/05/22 10:43> Review of Systems Narrative: GENERAL: Denies chills, fatigue, malaise, fever, sweats. HEENT: Denies sinus pain, ear pain, sore throat RESPIRATORY: Denies dyspnea, cough CARDIOVASCULAR: Denies chest pain, palpitations GASTROINTESTINAL: Denies nausea, vomiting, abdominal pain : Denies dysuria, frequency, hematuria MUSCULOSKELETAL: denies muscle or bony pain SKIN: Denies rash, skin lesions NEUROLOGIC: Negative for numbness, positive for incontinence, positive for leg weakness Patient History <Edgar Monahan MD - Last Filed: 01/10/22 09:06> Medical History Bilateral hydronephrosis Bladder cancer Chronic pain of lower extremity, bilateral Migraine PTSD (post-traumatic stress disorder) Ureteral carcinoma Ureteral duplication, left Surgical History Status post breast lumpectomy Status post hysterectomy (~1989) Social History household members: spouse Smoking Status: Current every day smoker alcohol intake: current Smoking Status: Current every day smoker alcohol intake frequency: a few times a month Substance Use Type: marijuana Exam <Edgar Monahan MD - Last Filed: 01/10/22 09:06> Narrative Exam Narrative: GENERAL: in no distress, not toxic not dyspneic HEAD: Normocephalic. EYES: Pupils equal round No scleral icterus. ENT: Mucous membranes moist. NECK: Trachea midline. CARDIOVASCULAR: Regular rate and rhythm without murmurs RESPIRATORY: Clear to auscultation. Breath sounds equal bilaterally. No wheezes, rales, or rhonchi. GASTROINTESTINAL: Abdomen soft, non-tender EXTREMITIES: No gross deformities. BACK: No flank tenderness. NEURO: AOx4. Strong bilateral patellar reflexes and ankle flexion and extension. Light touch intact to bilateral feet and toes. Female nurse Era, bedside, there is rectal tone present, not strong tone but is present. Is able to bear down/Valsalva SKIN: Warm and dry PSYCH: Not anxious, is cooperative Initial Vital Signs Initial Vital Signs: Vital Signs Temperature 97.5 F L 01/04/22 20:32 Pulse Rate 91 H 01/04/22 20:32 Respiratory Rate 16 01/04/22 20:32 Blood Pressure 103/73 01/04/22 20:32 Pulse Oximetry 98 01/04/22 20:32 Oxygen Delivery Method 01/04/22 20:32 <Spencer Duke MD - Last Filed: 01/05/22 10:43> Initial Vital Signs Initial Vital Signs: Vital Signs Temperature 97.5 F L 01/04/22 20:32 Pulse Rate 91 H 01/04/22 20:32 Respiratory Rate 16 01/04/22 20:32 Blood Pressure 103/73 01/04/22 20:32 Pulse Oximetry 98 01/04/22 20:32 Oxygen Delivery Method 01/04/22 20:32 Course <Edgar Monahan MD - Last Filed: 01/10/22 09:06> Course Course Narrative: No new issues during course of stay 7:[address] Gibbs MRI is pending. Call Dr. Browning once resulted for disposition Orders Ordered: Discontinued Medications Acetaminophen (Acetaminophen 325 Mg Tablet) 975 mg PO NOW ONE Stop: 01/05/22 04:02 Last Admin: 01/05/22 04:05 Dose: 975 mg Documented By: EB Reevaluation(s) Reevaluation #1: Patient and understand need to stay here for MRI in the morning. I did review with orthopedic spine provider and not need urgent transfer right now for MRI Time: 00:26 Consultations Consultation #1: Spoke with Ortho Spine, Dr. Browning, patient would best be boarded here overnight in the ER department and have MRI at 8 in the morning. Does not need to be transferred now has symptoms have been progressing for the past couple of month s. Not acute change Time: 00:26 Vital Signs Vital signs: Vital Signs - 8 hr 01/05/22 07:04 01/05/22 07:05 01/05/22 07:05 Pulse Rate 63 Respiratory Rate 20 Blood Pressure 115/52 L Pulse Oximetry 98 97 01/05/22 08:03 01/05/22 08:03 Pulse Rate 75 Respiratory Rate Blood Pressure 126/74 Pulse Oximetry 98 <Spencer Duke MD - Last Filed: 01/05/22 10:43> Orders Ordered: Discontinued Medications Acetaminophen (Acetaminophen 325 Mg Tablet) 975 mg PO NOW ONE Stop: 01/05/22 04:02 Last Admin: 01/05/22 04:05 Dose: 975 mg Documented By: EB Reevaluation(s) Reevaluation #2: I assumed care of this patient from Dr. Monahan at approximately 7:00 a.m. I have reviewed the documentation in detail. She is able to ambulate without any difficulty. I think outpatient follow-up is appropriate. Consultations Consultation #2: Current time 10:39 a.m.. I got a phone call just now from Dr. Browning from Orthopedic surgery who reviewed the MRI and says that there is no chance that the spinal cord is palpable for the stool incontinence and recommends follow-up with another specialty such as GI. Vital Signs Vital signs: Vital Signs - 8 hr 01/05/22 07:04 01/05/22 07:05 01/05/22 07:05 Pulse Rate 63 Respiratory Rate 20 Blood Pressure 115/52 L Pulse Oximetry 98 97 01/05/22 08:03 01/05/22 08:03 Pulse Rate 75 Respiratory Rate Blood Pressure 126/74 Pulse Oximetry 98 MDM - Back Pain/Injury <Edgar Monahan MD - Last Filed: 01/10/22 09:06> Differential Diagnosis Differential diagnosis: Likely lumbar radiculopathy, sciatica, strain of lumbar region, discitis and other (Cord compression/cauda equina) MDM Narrative Medical decision making narrative: Appropriate for observation here for MRI in the morning. I did review with Ortho Spine Dr. Browning and no need to transfer at this moment. Appropriate for MRI here in the morning. <Spencer Duke MD - Last Filed: 01/05/22 10:43> Medical Records Medical records narrative: I assumed care of this patient Imaging Data mri: Radiologist's Impression: ? Chart Viewer Diagnostics Subcategory All Activity ??:?? All Time ??:?? All Subcategories Filter Laboratory Imaging Microbiology Pathology Blood Bank Tests Cardiovascular Other Specialty DATE TYPE STATUS REF RANGE/AUTHOR Hx Today 00:22 Lumbar Spine MRI Signed Verna Stallings 12/01/21 00:00 Chest/Abdomen/Pelvis CT Signed Colette Al 09/27/21 00:00 Mammogram Screening Signed Tereso Marshall 08/11/21 00:00 Modified Barium Swallow Signed Tex Gordon 06/06/21 10:37 Chest/Abdomen/Pelvis CT Signed Tex Gordon 01/17/21 00:00 Chest/Abdomen/Pelvis CT Signed Cass Grimaldo 10/05/20 18:38 Abdomen/Pelvis CT Signed Eric Hope 04/20/20 16:05 Lumbar Spine MRI Signed Verna Stallings 04/20/20 16:05 Cervical Spine MRI Signed Verna Stallings 04/20/20 00:00 Mammogram Screening Signed Jose Gold 11/03/19 02:22 Chest X-Ray Signed Stephen Coats 08/28/19 00:00 Abdomen X-Ray Signed Stephen Coats 08/24/19 00:00 Abdomen/Pelvis CT Signed New Call 04/16/19 00:00 Pelvis Ultrasound Signed Aicha Wilson 11/13/18 00:00 Mammogram Diagnostic Signed Nnamdi Chapa 03/12/18 12:23 Chest X-Ray Signed Ronald Raymundo Tina M ED 61, F?1960 MRN#? [id number] REG ER,?Main ED??R07?? 175.26cm 105.687kg BMI: 34.4kg/m? Back Pain/Injury Acc#? [id number] Resus Status Not Ordered No Hx Avail Special Indicators No Data to Display Home Meds Confirmed Prescription Monitoring Program Total 22.5 MME/Day MEDICATIONS (INSTRUCTIONS) LAST TAKEN Active oxycodone-acetaminophen [Percocet] 1 [id number]#1 tab 22.5 MME/Day Allergies ciprofloxacin (From CIPRO) Hives Iodinated Contrast Media Hives Latex, Natural Rubber Problems No Data to Display Vital Signs Today 08:03 BP 126/74? Pulse 75? O2 Sat 98? Diagnostics Reports Sandra Grijalva??61??F??1960 ? Allergy/Adv: ciprofloxacin, Iodinated Contrast Media, Latex, Natural Rubber (More??) Close Lumbar Spine MRI (Signed) Verna Stallings - 01/05/22 Chest/Abdomen/Pelvis CT (Signed) Colette Al - 12/01/21 Mammogram Screening (Signed) Tereso Marshall - 09/27/21 Modified Barium Swallow (Signed) Tex Gordon - 08/11/21 Chest/Abdomen/Pelvis CT (Signed) Tex Gordon - 06/06/21 Chest/Abdomen/Pelvis CT (Signed) Cass Grimaldo - 01/17/21 Abdomen/Pelvis CT (Signed) Eric Hoep - 10/05/20 Lumbar Spine MRI (Signed) Verna Stallings - 04/20/20 Cervical Spine MRI (Signed) Verna Stallings - 04/20/20 Mammogram Screening (Signed) Jose Gold - 04/20/20 Chest X-Ray (Signed) Stephen Coats - 11/03/19 Abdomen X-Ray (Signed) Stephen Coats - 08/28/19 Abdomen/Pelvis CT (Signed) New Call - 08/24/19 Pelvis Ultrasound (Signed) Aicha Wilson - 04/16/19 Mammogram Diagnostic (Signed) Nnamdi Chapa - 11/13/18 Chest X-Ray (Signed) Ronald Raymundo - 03/12/18 [place] [address] Magnetic Resonance Report Signed Patient: Sandra Grijalva MR#: [id number] : 1960 Acct:[id number] Age/Sex: 61 / F Date of Service: 01/05/22 Loc: ED Accession Number: [id number] ?? Procedure: MR lumbar spine wo con Ordering Provider: Edgar Monahan MD PROCEDURE:? MR LUMBAR SPINE WO CON ? INDICATIONS:? Fecal incontinence/left leg weakness ? TECHNIQUE:? Noncontrast sagittal T1 spin echo and T2 fast echo, sagittal STIR, and T2 fast spin echo through the lumbar spine.? In cases with scoliosis, additional coronal T2 fast spin echo may be performed.? ? COMPARISON:? MR, MR LUMBAR SPINE WO CON, 04/20/2020, 16:48. ? FINDINGS:? Image quality:? Excellent.? ? Alignment and Curvature:? There is trace, approximately 3 millimeters of L2-L3 and L5-S1 retrolisthesis.? There is trace, approximately 1-2 millimeters of L1-L2 re trolisthesis. ? Bone Marrow:? Modic type 2 reactive endplate changes noted adjacent to the L5-S1 disc.? No acute vertebral body compression fractures.? ? Spinal Cord:? Conus medullaris terminates at the L1 level.? Visualized cord demonstrates normal signal and size.? ? Paraspinous Soft Tissues:? No paravertebral masses.? ? T12-L1:? Loss of disc signal.? Moderate, diffuse disc bulge.? Mild narrowing of the central canal.? Mild bilateral neural foraminal narrowing.? No neural compression. ? L1-L2:? Loss of disc signal.? Mild, diffuse disc bulge.? Small left central disc protrusion.? Mild narrowing of the central canal.? Mild bilateral neural foraminal narrowing.? No neural compression. ? L2-L3:? Loss of disc signal.? Mild, diffuse disc bulge.? Mild narrowing of the central canal.? Mild left neural foraminal narrowing.? No neural compression. ? L3-L4:? Loss of disc signal.? Mild, diffuse disc bulge.? Mild bilateral facet hypertrophy.? Mild narrowing of the central canal.? Mild bilateral neural foraminal narrowing.? No neural compression ? L4-L5:? Loss of disc signal.? Mild, diffuse disc bulge.? Mild bilateral facet hypertrophy.? Mild narrowing of the central canal.? Mild bilateral neural foraminal narrowing.? No neural compression.? Fissure noted in the posterior annulus. ? L5-S1:? Loss of disc signal and height.? Mild, diffuse disc bulge.? Mild bilateral facet hypertrophy.? No central stenosis.? Mild bilateral neural foraminal narrowing.? No neural compression.? Fissures noted in the annulus. ? ? IMPRESSION:? ? 1. Multilevel degenerative disc disease. ? 2. Multilevel facet arthropathy. ? 3. No severe central canal narrowing. ? 4. No severe neural foraminal narrowing.? ? 5. No neural compression. ? 6. L4-L5 and L5-S1 disc annulus fissures.? Dictated by: Verna Stallings MD, PhD on 01/05/2022 at 9:10 ? ? Approved by: Verna Stallings MD, PhD on 01/05/2022 at 9:22 ? MDM Narrative Medical decision making narrative: Appropriate for observation here for MRI in the morning. I did review with Ortho Spine Dr. Browning and no need to transfer at this moment. Appropriate for MRI here in the morning. 9:38 a.m. MRI results are as follows:[address] [address] Magnetic Resonance Report Signed Patient: Sandra Grijalva MR#: [id number] : 1960 Acct:[id number] Age/Sex: 61 / F Date of Service: 01/05/22 Loc: ED Accession Number: [id number] ?? Procedure: MR lumbar spine wo con Ordering Provider: Edgar Monahan MD PROCEDURE:? MR LUMBAR SPINE WO CON ? INDICATIONS:? Fecal incontinence/left leg weakness ? TECHNIQUE:? Noncontrast sagittal T1 spin echo and T2 fast echo, sagittal STIR, and T2 fast spin echo through the lumbar spine.? In cases with scoliosis, additional coronal T2 fast spin echo may be performed.? ? COMPARISON:? MR, MR LUMBAR SPINE WO CON, 04/20/2020, 16:48. ? FINDINGS:? Image quality:? Excellent.? ? Alignment and Curvature:? There is trace, approximately 3 millimeters of L2-L3 and L5-S1 retrolisthesis.? There is trace, approximately 1-2 millimeters of L1-L2 retrolisthesis. ? Bone Marrow:? Modic type 2 reactive endplate changes noted adjacent to the L5-S1 disc.? No acute vertebral body compression fractures.? ? Spinal Cord:? Conus medullaris terminates at the L1 level.? Visualized cord demonstrates normal signal and size.? ? Paraspinous Soft Tissues:? No paravertebral masses.? ? T12-L1:? Loss of disc signal.? Moderate, diffuse disc bulge.? Mild narrowing of the central canal.? Mild bilateral neural foraminal narrowing.? No neural compression. ? L1-L2:? Loss of disc signal.? Mild, diffuse disc bulge.? Small left central disc protrusion.? Mild narrowing of the central canal.? Mild bilateral neural foraminal narrowing.? No neural compression. ? L2-L3:? Loss of disc signal.? Mild, diffuse disc bulge.? Mild narrowing of the central canal.? Mild left neural foraminal narrowing.? No neural compression. ? L3-L4:? Loss of disc signal.? Mild, diffuse disc bulge.? Mild bilateral facet hypertrophy.? Mild narrowing of the central canal.? Mild bilateral neural foraminal narrowing.? No neural compression ? L4-L5:? Loss of disc signal.? Mild, diffuse disc bulge.? Mild bilateral facet hypertrophy.? Mild narrowing of the central canal.? Mild bilateral neural foraminal narrowing.? No neural compression.? Fissure noted in the posterior annulus. ? L5-S1:? Loss of disc signal and height.? Mild, diffuse disc bulge.? Mild bilateral facet hypertrophy.? No central stenosis.? Mild bilateral neural foraminal narrowing.? No neural compression.? Fissures noted in the annulus. ? ? IMPRESSION:? ? 1. Multilevel degenerative disc disease. ? 2. Multilevel facet arthropathy. ? 3. No severe central canal narrowing. ? 4. No severe neural foraminal narrowing.? ? 5. No neural compression. ? 6. L4-L5 and L5-S1 disc annulus fissures.? Dictated by: Verna Stallings MD, PhD on 01/05/2022 at 9:10 ? ? Approved by: Verna Stallings MD, PhD on 01/05/2022 at 9:22 ? Discharge Plan Departure Patient Disposition: Home Clinical Impression: Fecal incontinence Activity Restrictions/Additional Instructions: The MRI reveals that the cause of your stool incontinence is not related to her spinal cord. I spoke with Dr. Browning from Orthopedic surgery who is a spine surgeon and he is completely convinced that this is not the cause. I recommend follow-up with GI for further evaluation. Of course her welcome to return to the emerged department for new or worsening symptoms. Prescriptions: New oxycodone-acetaminophen [Percocet] 5-325 mg tablet 1 tab PO Q8H PRN (Reason: pain) Qty: 1 0RF Referrals: Sherry Santana MD [Primary Care Provider] - Visit Report Forms: Patient Portal/API
--- NOTE | 2022-01-05 00:22 | DI.MRI.S_ITS ---
PROCEDURE: MR LUMBAR SPINE WO CON INDICATIONS: Fecal incontinence/left leg weakness TECHNIQUE: Noncontrast sagittal T1 spin echo and T2 fast echo, sagittal STIR, and T2 fast spin echo through the lumbar spine. In cases with scoliosis, additional coronal T2 fast spin echo may be performed. COMPARISON: MR, MR LUMBAR SPINE WO CON, 04/20/2020, 16:48. FINDINGS: Image quality: Excellent. Alignment and Curvature: There is trace, approximately 3 millimeters of L2-L3 and L5-S1 retrolisthesis. There is trace, approximately 1-2 millimeters of L1-L2 retrolisthesis. Bone Marrow: Modic type 2 reactive endplate changes noted adjacent to the L5-S1 disc. No acute vertebral body compression fractures. Spinal Cord: Conus medullaris terminates at the L1 level. Visualized cord demonstrates normal signal and size. Paraspinous Soft Tissues: No paravertebral masses. T12-L1: Loss of disc signal. Moderate, diffuse disc bulge. Mild narrowing of the central canal. Mild bilateral neural foraminal narrowing. No neural compression. L1-L2: Loss of disc signal. Mild, diffuse disc bulge. Small left central disc protrusion. Mild narrowing of the central canal. Mild bilateral neural foraminal narrowing. No neural compression. L2-L3: Loss of disc signal. Mild, diffuse disc bulge. Mild narrowing of the central canal. Mild left neural foraminal narrowing. No neural compression. L3-L4: Loss of disc signal. Mild, diffuse disc bulge. Mild bilateral facet hypertrophy. Mild narrowing of the central canal. Mild bilateral neural foraminal narrowing. No neural compression L4-L5: Loss of disc signal. Mild, diffuse disc bulge. Mild bilateral facet hypertrophy. Mild narrowing of the central canal. Mild bilateral neural foraminal narrowing. No neural compression. Fissure noted in the posterior annulus. L5-S1: Loss of disc signal and height. Mild, diffuse disc bulge. Mild bilateral facet hypertrophy. No central stenosis. Mild bilateral neural foraminal narrowing. No neural compression. Fissures noted in the annulus. IMPRESSION: 1. Multilevel degenerative disc disease. 2. Multilevel facet arthropathy. 3. No severe central canal narrowing. 4. No severe neural foraminal narrowing. 5. No neural compression. 6. L4-L5 and L5-S1 disc annulus fissures. Dictated by: Verna Stallings MD, PhD on 01/05/2022 at 9:10 Approved by: Verna Stallings MD, PhD on 01/05/2022 at 9:22
[2022-01-05] MEDS: ACETAMINOPHEN 325 MG TABLET 975 MG PO (04:05)
[2022-01-05 07:04] VITALS: O2SAT 98
[2022-01-05 07:05] VITALS: BP 115/52; PULSE 63; RESP 20; O2SAT 97
[2022-01-05 08:03] VITALS: BP 126/74; PULSE 75; O2SAT 98
[2022-01-05 10:40] VITALS: BP 114/71; PULSE 87; RESP 18; O2SAT 94
== END 2022-01-05 10:41 | disposition home or self-care (01) ==
PROVIDERS: Emergency Provider Family Medicine Addiction Medicine; Family Provider Internal Medicine; PCP Internal Medicine
DX: R15.9 Full incontinence of feces (principal); M54.50 Low back pain, unspecified; R53.1 Weakness
CPT/HCPCS: 72148; 99283; 99284

== ENCOUNTER → 2022-07-10 12:45 | Outpatient (CLI) | payer OTHER, SELFPAY ==
--- NOTE | 2022-07-10 13:47 | DI.CT.S_ITS ---
PROCEDURE: CT ABDOMEN W CON INDICATIONS: LEFT UPPER QUADRANT PAIN TECHNIQUE: After the administration of oral and intravenous contrast, 5 mm thick sections acquired from the diaphragms to the iliac crests. 5 mm thick coronal and sagittal reformats were acquired. For radiation dose reduction, the following was used: automated exposure control, adjustment of mA and/or kV according to patient size. COMPARISON: [facility], CT, CT KIDNEY URETER BLADDER (KUB), 08/24/2019, 11:50. [facility], CT, CT CHEST ABD PEL W CON, 06/06/2021, 10:40. [facility], CT, CT CHEST ABD PEL W CON, 12/01/2021, 11:37. FINDINGS: Image quality: Adequate Lung bases: No pleural effusion. Solid organs: The liver is hypoattenuating suggestive of fatty infiltration. Gallbladder is unremarkable. Biliary system is non dilated. Pancreas enhances normally. Spleen is normal in size and enhancement. 1.3 cm left adrenal nodule (09/03) not significantly changed since at least 2019, density on the prior noncontrast examination typical of an adenoma. No right adrenal nodule visualized. Prior right nephrectomy, no suspicious findings identified in the surgical bed. Mild left hydronephrosis in a configuration suggestive of UPJ obstruction, not significantly changed. 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 Peritoneum and bowel: Visualized large and small bowel is non-dilated. Colonic diverticulosis without evidence of acute diverticulitis. No free air or substantial free fluid. Nodes and vessels: No retroperitoneal or mesenteric adenopathy by size criteria. Aorta and inferior vena cava are normal in size. Bones: Multilevel degenerative change of the visualized spine. IMPRESSION: 1. No acute appearing abnormality identified within the abdomen. 2. Similar left hydronephrosis suggestive of UPJ obstruction. Alternatively this appearance could be related to the presence of prominent renal sinus cysts. CT IVP might be helpful for further evaluation if indicated. Dictated by: Edgar Huitron M.D. on 07/11/2022 at 10:51 Approved by: Edgra Huitron M.D. on 07/11/2022 at 11:14
== END ==
PROVIDERS: Family Provider Internal Medicine; PCP Internal Medicine; Referring Provider Registered Nurse; Visit Provider Registered Nurse
DX: N13.30 Unspecified hydronephrosis (principal); K57.90 Diverticulosis of intestine, part unspecified, without perforation or abscess without bleeding; R10.12 Left upper quadrant pain; E27.9 Disorder of adrenal gland, unspecified
CPT/HCPCS: 74160

== ENCOUNTER 2023-02-27 16:34 | Emergency (ER) | payer OTHER, SELFPAY ==
[2023-02-27] VITALS (7 sets, daily range): BP systolic 101–120; BP diastolic 56–73; PULSE 71–87; RESP 13–20; TEMP 37; O2SAT 94–98; BMI 37.2
--- NOTE | 2023-02-27 16:47 | DI.RAD.S_ITS ---
PROCEDURE: XR CHEST 1V INDICATIONS: Shortness of breath TECHNIQUE: One view of the chest was acquired. COMPARISON: [facility], FINESSE, XR CHEST 1V, 11/03/2019, 2:28. [facility], FINESSE, XR CHEST 1V, 03/12/2018, 12:28. FINDINGS: Surgical changes and devices: None. Lungs and pleura: Lungs are clear. No pleural effusions or pneumothorax. Mediastinum: Mediastinal contours appear normal. Heart size is normal. Bones and chest wall: No suspicious bony lesions. Overlying soft tissues appear unremarkable. IMPRESSION: No acute cardiopulmonary process. Dictated by: Kenneth Garay M.D. on 02/27/2023 at 17:04 Approved by: Kenneth Garay M.D. on 02/27/2023 at 17:05
[2023-02-27 17:19] LABS: Add Manual Diff / Slide Review NO; Basophils Absolute Auto 0 /uL (0-100); Basophils Percent Auto 0.5 % (0-2); Eosinophils Absolute Auto 100 /uL (0-450); Eosinophils Percent Auto 1.3 % (2-4); Hematocrit 43.6 % (36-46); Hemoglobin 14.9 g/dL (12.0-16.0); Lymphocytes Absolute Auto 1900 /uL (1100-4500); Lymphocytes Percent Auto 20.2 % (25-40); Mean Corpuscular HGB Conc 34.1 % (30-36); Mean Corpuscular Hemoglobin 30.9 PG (26-34); Mean Corpuscular Volume 90.7 fL (80-100); Monocytes Absolute Auto 500 /uL (0-900); Monocytes Percent Auto 5.7 % (3-14); Neutrophils Absolute Auto 6800 /uL (1500-7000); Neutrophils Percent Auto 72.3 % (50-75); Platelet Count 251 X10^3/uL (150-400); Red Blood Cell Count 4.81 X10^6/uL (4.0-5.2); Red Cell Distribution Width 14.2 % (11.6-14.8); White Blood Cell Count 9.4 X10^3/uL (4.5-11.0)
[2023-02-27 17:28] LABS: Alanine Aminotransferase 35 IU/L (<35); Albumin 4.2 g/dL (3.5-5.0); Albumin Globulin Ratio 1.4 (1.0-2.8); Alkaline Phosphatase 57 U/L (38-126); Aspartate Aminotransferase 33 IU/L (14-36); BUN Creatinine Ratio 21.7 (6-22); Bilirubin Total 0.4 mg/dL (0.2-1.3); Blood Urea Nitrogen 20 mg/dL (7-17); Carbon Dioxide 27 mmol/L (22-32); Chloride 105 mmol/L (98-107); Estimated Glomerular Filt Rate > 60 mL/min (>60); Globulin 3.1 g/dL (1.7-4.1); Glucose 102 mg/dL (80-110); Lactate (Lactic Acid) 0.7 mmol/L (0.7-2.1); Potassium 4.5 mmol/L (3.4-5.1); Sodium 138 mmol/L (137-145); Total Protein 7.3 g/dL (6.3-8.2)
[2023-02-27 17:40] LABS: Troponin I < 0.012 ng/mL (0.01-0.034)
[2023-02-27 17:50] LABS: HEMOLYSIS 25 (0-50); NT-proBNP (BNP-Adult 18+) 36 pg/mL (<125)
--- NOTE | 2023-02-27 18:47 | ED_ITS ---
HPI - General Adult General Chief complaint: Shortness of Breath/Dyspnea Stated complaint: SOB/lymphedema Time Seen by Provider: 02/27/23 18:02 Source: patient Mode of arrival: Ambulatory Limitations: no limitations History of Present Illness HPI narrative: Patient is a 62-year-old female. 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 Also had lymph node dissection. This was several years ago. She no longer is receiving any chemotherapy or specific oncologic treatment. Since the surgery she has had lymphedema. She is also having shortness of breath which triage note says has been going on for the past couple days however the patient states this has been going on for approximately 6 months. He is not currently having any chest pain. She he is using compression to try to help with the lymphedema however she still feels like she was becoming swollen. States she is having a [facility] to [facility] any specialist to help with the lymphedema and apparently was told to come to the emergency department because of her shortness of breath and chest pain and the swelling by the [facility]. she does have Lasix at home but was told not to take it by her kidney doctors. Related Data Previous Rx's Medication Instructions Recorded oxycodone-acetaminophen 5 mg-325 1 tab PO Q8H PRN pain #1 tab 01/05/22 mg tablet (Percocet) Allergies Allergy/AdvReac Type Severity Reaction Status Date / Time ciprofloxacin [From CIPRO] Allergy Unknown Hives Verified 10/05/20 17:22 Iodinated Contrast Media Allergy Unknown Hives Verified 10/05/20 17:22 Latex, Natural Rubber Allergy Verified 10/05/20 17:22 Review of Systems Cardiovascular Cardiovascular: Reports system reviewed and no additional complaints, except as documented Respiratory Respiratory: Reports system reviewed and no additional complaints, except as documented Gastrointestinal Gastrointestinal: Reports system reviewed and no additional complaints, except as documented Musculoskeletal Musculoskeletal: Reports system reviewed and no additional complaints, except as documented Integumentary/Breasts Skin/Breast: Reports system reviewed and no additional complaints, except as documented Hematologic/Lymphatic Hematologic/Lymphatic: Reports system reviewed and no additional complaints, except as documented Patient History Medical History Bilateral hydronephrosis Bladder cancer Chronic pain of lower extremity, bilateral Migraine PTSD (post-traumatic stress disorder) Ureteral carcinoma Ureteral duplication, left Surgical History Status post breast lumpectomy Status post hysterectomy (~1989) Social History household members: spouse Smoking Status: Current every day smoker alcohol intake: current Smoking Status: Current every day smoker alcohol intake frequency: holidays/special occasions only Substance Use Type: marijuana Exam Initial Vital Signs Initial Vital Signs: Vital Signs Temperature 98.6 F 02/27/23 16:39 Pulse Rate 87 02/27/23 16:39 Respiratory Rate 18 02/27/23 16:39 Blood Pressure 114/67 02/27/23 16:39 Pulse Oximetry 98 02/27/23 16:39 Oxygen Delivery Method Room Air 02/27/23 16:39 Const General: cooperative, comfortable and No ill appearing HENMT Head: normal to inspection and normocephalic Resp Effort & Inspection: normal respiratory effort Cardio Rate: regular rate GI Inspection: normal to inspection Neuro General: patient alert and patient awake Extrem Other: No pitting edema noted Course Orders Ordered: ED Orders 02/27/23 16:47 XR chest 1V Stat EKG-12 Lead Stat Measure peak expiratory flow ONCE RT Consult Eval and Treat NOW 02/27/23 17:00 Complete Blood Count AUTO DIFF Stat Comprehensive Metabolic Panel Stat Lactate (Lactic Acid) Stat NT-proBNP (BNP-Adult 18+) Stat Prothrombin Time INR Stat Troponin I Stat Vital Signs Vital signs: Vital Signs - 8 hr 02/27/23 16:39 02/27/23 17:51 02/27/23 17:53 Temperature 98.6 F Pulse Rate 87 79 78 Respiratory Rate 18 13 16 Blood Pressure 114/67 Pulse Oximetry 98 96 95 Oxygen Delivery Method Room Air 02/27/23 17:53 02/27/23 18:00 02/27/23 18:00 Temperature Pulse Rate 78 Respiratory Rate 16 Blood Pressure 120/66 103/57 L Pulse Oximetry 94 Oxygen Delivery Method 02/27/23 18:16 02/27/23 18:16 02/27/23 18:30 Temperature Pulse Rate 74 Respiratory Rate 14 Blood Pressure 101/56 L 110/65 Pulse Oximetry 95 Oxygen Delivery Method 02/27/23 18:30 02/27/23 18:45 02/27/23 18:45 Temperature Pulse Rate 78 71 Respiratory Rate 18 20 Blood Pressure 116/73 Pulse Oximetry 95 94 Oxygen Delivery Method Medical Decision Making Lab Data Lab results reviewed: Yes I reviewed the patient's lab results. 02/27/23 17:00 02/27/23 17:00 Labs: Lab Results 02/27/23 02/27/23 02/27/23 Range/Units 17:00 17:00 17:00 WBC 9.4 (4.5-11.0) X10^3/uL RBC 4.81 (4.0-5.2) X10^6/uL Hgb 14.9 (12.0-16.0) g/dL Hct 43.6 (36-46) % MCV 90.7 (80-100) fL MCH 30.9 (26-34) PG MCHC 34.1 (30-36) % RDW 14.2 (11.6-14.8) % Plt Count 251 (150-400) X10^3/uL Neut % (Auto) 72.3 (50-75) % Lymph % (Auto) 20.2 L (25-40) % [place] % (Auto) 5.7 (3-14) % Eos % (Auto) 1.3 L (2-4) % Baso % (Auto) 0.5 (0-2) % Neut # (Auto) 6800 (9739-8542) /uL Lymph # (Auto) 1900 (4123-4409) /uL [place] # (Auto) 500 (0-900) /uL Eos # (Auto) 100 (0-450) /uL Baso # (Auto) 0 (0-100) /uL PT 11.0 (10.1-12.7) SECONDS INR 1.0 (0.9-1.3) Sodium 138 (137-145) mmol/L Potassium 4.5 (3.4-5.1) mmol/L Chloride 105 (98-107) mmol/L Carbon Dioxide 27 (22-32) mmol/L BUN 20 H (7-17) mg/dL Creatinine 0.92 (0.52-1.04) mg/dL Estimated GFR > 60 (>60) mL/min BUN/Creatinine Ratio 21.7 (6-22) Glucose 102 (80-110) mg/dL Lactate (0.7-2.1) mmol/L Calcium 9.0 (8.4-10.2) mg/dL Total Bilirubin 0.4 (0.2-1.3) mg/dL AST 33 (14-36) IU/L ALT 35 H (<35) IU/L Alkaline Phosphatase 57 (38-126) U/L Troponin I < 0.012 (0.01-0.034) ng/mL NT-Pro-B Natriuret Pep 36 (<125) pg/mL Total Protein 7.3 (6.3-8.2) g/dL Albumin 4.2 (3.5-5.0) g/dL Globulin 3.1 (1.7-4.1) g/dL Albumin/Globulin Ratio 1.4 (1.0-2.8) 02/27/23 Range/Units 17:00 WBC (4.5-11.0) X10^3/uL RBC (4.0-5.2) X10^6/uL Hgb (12.0-16.0) g/dL Hct (36-46) % MCV (80-100) fL MCH (26-34) PG MCHC (30-36) % RDW (11.6-14.8) % Plt Count (150-400) X10^3/uL Neut % (Auto) (50-75) % Lymph % (Auto) (25-40) % [place] % (Auto) (3-14) % Eos % (Auto) (2-4) % Baso % (Auto) (0-2) % Neut # (Auto) (2898-0995) /uL Lymph # (Auto) (3963-9851) /uL [place] # (Auto) (0-900) /uL Eos # (Auto) (0-450) /uL Baso # (Auto) (0-100) /uL PT (10.1-12.7) SECONDS INR (0.9-1.3) Sodium (137-145) mmol/L Potassium (3.4-5.1) mmol/L Chloride (98-107) mmol/L Carbon Dioxide (22-32) mmol/L BUN (7-17) mg/dL Creatinine (0.52-1.04) mg/dL Estimated GFR (>60) mL/min BUN/Creatinine Ratio (6-22) Glucose (80-110) mg/dL Lactate 0.7 (0.7-2.1) mmol/L Calcium (8.4-10.2) mg/dL Total Bilirubin (0.2-1.3) mg/dL AST (14-36) IU/L ALT (<35) IU/L Alkaline Phosphatase (38-126) U/L Troponin I (0.01-0.034) ng/mL NT-Pro-B Natriuret Pep (<125) pg/mL Total Protein (6.3-8.2) g/dL Albumin (3.5-5.0) g/dL Globulin (1.7-4.1) g/dL Albumin/Globulin Ratio (1.0-2.8) Urine Dip Bedside Urine Glucose Negative Bedside Urine Bilirubin - Negative Bedside Urine Ketone - Negative Urine Specific Lane 1.015 Bedside Urine Occult Blood - Negative Bedside Urine pH 6.5 Bedside Urine Protein - Negative Bedside Urine Urobilinogen - Negative Bedside Urine Nitrite - Negative Bedside Urine Leukocytes - Negative Esterase Point of care testing: Urine Dip Bedside Urine Glucose Negative Bedside Urine Bilirubin - Negative Bedside Urine Ketone - Negative Urine Specific Lane 1.015 Bedside Urine Occult Blood - Negative Bedside Urine pH 6.5 Bedside Urine Protein - Negative Bedside Urine Urobilinogen - Negative Bedside Urine Nitrite - Negative Bedside Urine Leukocytes - Negative Esterase Imaging Data Chest x-ray: Radiologist's Impression: PROCEDURE:? XR CHEST 1V ? INDICATIONS:? Shortness of breath ? TECHNIQUE:? One view of the chest was acquired.? ? COMPARISON:? [facility], , XR CHEST 1V, 11/03/2019, 2:28.? [facility], XR CHEST 1V, 03/12/2018, 12:28. ? FINDINGS:? ? Surgical changes and devices:? None.? ? Lungs and pleura:? Lungs are clear.? No pleural effusions or pneumothorax.? ? Mediastinum:? Mediastinal contours appear normal.? Heart size is normal.? ? Bones and chest wall:? No suspicious bony lesions.? Overlying soft tissues appear unremarkable.? ? IMPRESSION:? No acute cardiopulmonary process. ECG Data Attestation: I personally reviewed and interpreted this ECG as follows: Interpretation: Sinus rhythm Ventricular rate 85 Normal axis Normal QRS Normal QTC No ST T wave changes MDM Narrative Medical decision making narrative: Patient is obviously frustrated about dealing with her primary providers at the [facility] and her continued swelling. Her symptoms that she comes with today have been present for at least the past several days/weeks if not longer. He does not have any pitting edema today. She is not hypoxic. No respiratory distress. Not tachypneic. Chest x-ray is unremarkable. EKG is unremarkable. Labs unremarkable. She is not clinically in heart failure. Had a long discussion with the patient regarding her symptoms. We did discussed potentially hurting her on diuretics but the patient states she was told not to take diuretics by her kidney doctors. Informed her that unfortunately there is not an easy fix for her lymphedema. And unfortunately nothing more that we can do end of the emergency department for this. She is no indication for admission to the hospital. I advised that she follow-up with her primary doctor to discuss further specialist referrals. She was given return precautions. Discharge Plan Departure Patient Disposition: Home Clinical Impression: Lymphedema Instructions: DI for Lymphedema Activity Restrictions/Additional Instructions: Unfortunately we are very limited in what we can do for your condition out of the emergency department. This does not mean that there is nothing that can be done however you do need to talk with her primary providers about potential referrals to see pulmonology or Cardiology. Return to the emergency department for new symptoms. Prescriptions: No Action oxycodone-acetaminophen [Percocet] 5-325 mg tablet 1 tab PO Q8H PRN (Reason: pain) Qty: 1 0RF Referrals: Sherry Santana MD [Primary Care Provider] - Stand Alone Forms: Patient Portal/API
== END 2023-02-27 19:14 | disposition home or self-care (01) ==
PROVIDERS: Emergency Medicine; Emergency Provider Emergency Medicine; Family Provider Internal Medicine; PCP Internal Medicine
DX: I89.0 Lymphedema, not elsewhere classified (principal); R03.1 Nonspecific low blood-pressure reading; R06.02 Shortness of breath
CPT/HCPCS: 36415; 71045; 80053; 81003; 83605; 83880; 84484; 85025; 85610; 93005; 99283; 99284

== ENCOUNTER → 2023-05-24 13:08 | Outpatient (CLI) | payer MEDICARE, OTHER, SELFPAY ==
--- NOTE | 2023-05-24 13:11 | DI.CT.S_ITS ---
PROCEDURE: CT CHEST W CON INDICATIONS: CHEST PAIN. Reported history of prior ureteral carcinoma. TECHNIQUE: After the administration of intravenous contrast, 5 mm thick sections acquired from the pulmonary apices to the posterior costophrenic angles. 1 mm axial lung, 5 mm thick coronal and sagittal reformats and 7 mm axial MIP were acquired. For radiation dose reduction, the following was used: automated exposure control, adjustment of mA and/or kV according to patient size. COMPARISON: None. FINDINGS: Image quality: Diagnostic. Lungs and pleura: No acute air space opacities. No pleural effusions or pneumothorax. Central and peripheral airways are patent and normal in caliber. Mediastinum: Heart size is normal. No pericardial effusion. No mediastinal or hilar adenopathy by size criteria. Thoracic aorta and central pulmonary arteries are normal in size. Esophagus is normal in caliber. No hiatal hernia. Bones and chest wall: No suspicious bony lesions. No vertebral body compression fractures. No axillary or supraclavicular adenopathy by size criteria. No thyroid nodules which require sonographic follow up, per consensus guidelines. Abdomen: Visualized upper abdominal solid organs appear normal. Upper abdominal bowel loops are normal in caliber. IMPRESSION: Source of right-sided chest pain is not identified. Dictated by: Stephen Coats M.D. on 05/24/2023 at 16:20 Approved by: Stephen Coats M.D. on 05/24/2023 at 16:22
[2023-05-24 13:31] LABS: Estimated Glomerular Filt Rate > 60 mL/min (>60)
== END ==
PROVIDERS: Radiology Diagnostic Radiology; Family Provider Internal Medicine; PCP Internal Medicine; Referring Provider Internal Medicine; Visit Provider Internal Medicine
DX: R07.9 Chest pain, unspecified (principal); R07.82 Intercostal pain
CPT/HCPCS: 36415; 71260; 82565; Q9967

== ENCOUNTER → 2023-06-05 14:44 | Outpatient (CLI) | payer MEDICARE, OTHER, SELFPAY ==
--- NOTE | 2023-06-05 | DI.MG.S_ITS ---
BILATERAL DIGITAL SCREENING MAMMOGRAM 3D/2D WITH CAD: 06/05/2023 CLINICAL: Routine screening. Family history of breast cancer. Comparison is made to exams dated: 09/27/2021 mammogram, 04/20/2020 mammogram, and 11/13/2018 mammogram - [facility]. There are scattered areas of fibroglandular density in both breasts (category b / 25%-50% glandular tissue). Current study was also evaluated with a Computer Aided Detection (CAD) system. No significant masses, calcifications, or other findings are seen in either breast. There has been no significant interval change. IMPRESSION: NEGATIVE There is no mammographic evidence of malignancy. A 1 year screening mammogram is recommended. Based on the Tyrer Cuzick model (a risk assessment model) the patient's lifetime risk is 13.9% and her 10 year risk is 6.5%. According to the ACR, ACS, and NCCN guidelines, an annual breast MRI exam along with mammogram is recommended if the patient's lifetime risk is 20% or greater. This exam was interpreted at Station ID: [id number]. NOTE: For mammograms, a report in lay terms will be sent to the patient. Approximately 15% of breast malignancies will not be visualized mammographically. In the management of a palpable breast mass, a negative mammogram must not discourage biopsy of a clinically suspicious lesion. Electronically Signed By: Jose garza/reji:06/06/2023 10:46:28 letter sent: Normal Exam ACR BI-RADS Category 1: Negative [id number]
== END ==
PROVIDERS: Family Provider Internal Medicine; PCP Internal Medicine; Referring Provider Internal Medicine; Visit Provider Internal Medicine
DX: Z12.31 Encounter for screening mammogram for malignant neoplasm of breast (principal); Z80.3 Family history of malignant neoplasm of breast
CPT/HCPCS: 77063; 77067

== ENCOUNTER → 2023-09-09 11:14 | Outpatient (CLI) | payer MEDICARE, OTHER, SELFPAY ==
[2023-09-09 12:06] LABS: Estimated Glomerular Filt Rate > 60 mL/min (>60)
== END ==
LOC: LAB 11:17
PROVIDERS: Family Provider Internal Medicine; PCP Internal Medicine; Referring Provider Radiology Diagnostic Radiology; Visit Provider Radiology Diagnostic Radiology
DX: C66.1 Malignant neoplasm of right ureter (principal)
CPT/HCPCS: 36415; 82565

== ENCOUNTER → 2023-09-11 | Outpatient (CLI) | payer MEDICARE, OTHER, SELFPAY ==
--- NOTE | 2023-09-11 08:01 | DI.MRI.S_ITS ---
PROCEDURE: MR ABDOMEN WO/W CON INDICATIONS: Malignant neoplasm of right ureter TECHNIQUE: Coronal HASTE, axial 2D FLASH in- and [id number]; axial breath-hold T2 FSE. Dynamic axial VIBE during the administration of contrast; post-contrast coronal VIBE or 2D FLASH with fat saturation from the hepatic dome to the iliac crests. Optional diffusion weighted imaging and ADC may be performed. COMPARISON: [facility], CT, CT CHEST ABD PEL W CON, 12/01/2021, 11:37. [facility], CT, CT ABDOMEN W CON, 07/10/2022, 13:53. [facility], CT, CT CHEST W CON, 05/24/2023, 14:42. FINDINGS: Image quality: Diagnostic Lower chest: Unremarkable Liver: No suspicious focal mass Hepatic steatosis. Gallbladder and biliary system: Unremarkable, nondilated Pancreas: Unremarkable Spleen: Nonenlarged Adrenals: No discrete nodules Kidneys: Right nephrectomy changes. No suspicious findings at the surgical bed Left pelviectasis and peripelvic cysts, no solid mass requiring dedicated follow-up identified. Vessels and lymph nodes: No abdominal aortic aneurysm. No pathologic lymph nodes by size criteria peer Bowel and peritoneum: No bowel obstruction. No pathologic ascites. Body wall: Unremarkable Pelvis: Partially seen, no gross abnormality. Colonic diverticula are present. Bones: Degenerative changes. No suspicious focal enhancement. IMPRESSION: Right nephrectomy and retroperitoneal postsurgical changes. No suspicious enhancing soft tissue. Left pelviectasis and peripelvic cysts again seen. No active metastases identified elsewhere in the abdomen. Other findings as above. Dictated by: Jose Villa M.D. on 09/11/2023 at 9:21 Approved by: Jose Villa M.D. on 09/11/2023 at 9:27
--- NOTE | 2023-09-11 08:02 | DI.CT.S_ITS ---
PROCEDURE: CT CHEST ABD PEL W CON INDICATIONS: Malignant neoplasm of right ureter TECHNIQUE: After the administration of intravenous contrast, 5 mm thick sections acquired from the lung apices to the symphysis. 5 mm coronal and sagittal reformats were performed, with additional 7 mm MIP reformats through the lungs. For radiation dose reduction, the following was used: automated exposure control, adjustment of mA and/or kV according to patient size. COMPARISON: [facility], CT, CT KIDNEY URETER BLADDER (KUB), 08/24/2019, 11:50. [facility], CT, CT CHEST ABD PEL W CON, 01/17/2021, 11:59. [facility], CT, CT CHEST ABD PEL W CON, 12/01/2021, 11:37. FINDINGS: Image quality: Excellent. CHEST: Lower Neck: No enlarged lymph nodes. Thyroid: No thyroid nodules which require sonographic follow up, per consensus guidelines. Axillae: Left adrenal nodule measuring 1.1 cm, (2/61), unchanged. Low-density. Similar dating back to 2020. Chest Wall: Unremarkable. Lungs and Pleura: No pneumothorax or pleural effusions. -Right middle lobe pulmonary nodule measuring 0.5 cm, (5/147), unchanged. -Left lower lobe pulmonary nodule measuring 0.4 cm, (5/150), unchanged. Heart: Heart size is normal. No pericardial effusion. Thoracic Vessels: The aorta and pulmonary arteries demonstrate normal size. Mediastinum and Janet: No enlarged lymph nodes. Esophagus: No wall thickening. No hiatal hernia. ABDOMEN: Liver: No solid mass. Possible hepatic steatosis. Gallbladder: No radiopaque gallstones or wall thickening. Biliary ducts: No biliary dilation. Pancreas: No ductal dilation. Spleen: Size is within normal limits. Adrenal Glands: No adrenal nodules. Kidneys and Ureters: Right nephrectomy. No mass in the right nephrectomy bed. No left hydronephrosis. Multiple left peripelvic cysts. Stomach and Bowel: Normal colonic caliber, without significant wall thickening. Diverticulosis. Normal appendix. Peritoneum: No abnormal intraperitoneal fluid. No free air. Ventral Wall: No significant ventral hernia. Abdominal Nodes: No retroperitoneal or mesenteric adenopathy by size criteria. Vessels: Aorta and inferior vena cava are normal in size. PELVIS: Pelvic Organs: Uterus is absent. Bladder: Not distended. No stone. Pelvic Nodes: No enlarged lymph nodes. Miscellaneous: No inguinal hernias are seen. Bones: No aggressive osseous abnormality. IMPRESSION: 1. Right nephrectomy. No mass in the nephrectomy bed. 2. No adenopathy. 3. A few small pulmonary nodules which are unchanged since 2021. Dictated by: Tereso Marshall M.D. on 09/11/2023 at 11:16 Approved by: Tereso Marshall M.D. on 09/11/2023 at 11:35
== END ==
LOC: MRI 08:00
PROVIDERS: PCP Internal Medicine; Referring Provider Urology; Visit Provider Urology
DX: C66.1 Malignant neoplasm of right ureter (principal); N28.89 Other specified disorders of kidney and ureter; N28.1 Cyst of kidney, acquired; R91.8 Other nonspecific abnormal finding of lung field; K57.90 Diverticulosis of intestine, part unspecified, without perforation or abscess without bleeding; K76.0 Fatty (change of) liver, not elsewhere classified; Z90.5 Acquired absence of kidney
CPT/HCPCS: 71260; 74177; 74183; Q9967

== ENCOUNTER → 2023-09-20 12:46 | Outpatient (CLI) | payer MEDICARE, OTHER, SELFPAY ==
[2023-09-20 14:23] LABS: Add Manual Diff / Slide Review NO; Basophils Absolute Auto 0 /uL (0-100); Basophils Percent Auto 0.4 % (0-2); Eosinophils Absolute Auto 200 /uL (0-450); Eosinophils Percent Auto 1.8 % (2-4); Hematocrit 46.2 % (36-46); Hemoglobin 15.5 g/dL (12.0-16.0); Lymphocytes Absolute Auto 2300 /uL (1100-4500); Lymphocytes Percent Auto 26.1 % (25-40); Mean Corpuscular HGB Conc 33.6 % (30-36); Mean Corpuscular Hemoglobin 29.9 PG (26-34); Monocytes Absolute Auto 600 /uL (0-900); Monocytes Percent Auto 6.7 % (3-14); Neutrophils Absolute Auto 5700 /uL (1500-7000); Platelet Count 252 X10^3/uL (150-400); Red Blood Cell Count 5.18 X10^6/uL (4.0-5.2); Red Cell Distribution Width 14.8 % (11.6-14.8); White Blood Cell Count 8.8 X10^3/uL (4.5-11.0)
[2023-09-20 15:06] LABS: Alanine Aminotransferase 39 IU/L (<35); Albumin 4.2 g/dL (3.5-5.0); Albumin Globulin Ratio 1.4 (1.0-2.8); Alkaline Phosphatase 58 U/L (38-126); Aspartate Aminotransferase 34 IU/L (14-36); BUN Creatinine Ratio 11.6 (6-22); Bilirubin Total 0.6 mg/dL (0.2-1.3); Blood Urea Nitrogen 11 mg/dL (7-17); Calcium 10.1 mg/dL (8.4-10.2); Carbon Dioxide 29 mmol/L (22-32); Chloride 107 mmol/L (98-107); Estimated Glomerular Filt Rate > 60 mL/min (>60); Globulin 2.9 g/dL (1.7-4.1); Glucose 92 mg/dL (80-110); HEMOLYSIS < 15 (0-50); Potassium 4.9 mmol/L (3.4-5.1); Sodium 140 mmol/L (137-145); Total Protein 7.1 g/dL (6.3-8.2)
== END ==
LOC: LAB 13:14
PROVIDERS: PCP Internal Medicine; Referring Provider Urology; Visit Provider Urology
DX: C66.1 Malignant neoplasm of right ureter (principal); Z90.5 Acquired absence of kidney
CPT/HCPCS: 36415; 80053; 85025

== ENCOUNTER 2023-10-15 15:32 | Emergency (ER) | payer MEDICARE, OTHER, SELFPAY ==
[2023-10-15 15:37] VITALS: BP 152/63; PULSE 81; RESP 18; TEMP 36.5; O2SAT 96; BMI 36.9
--- NOTE | 2023-10-15 15:43 | DI.RAD.S_ITS ---
PROCEDURE: XR ELBOW RT MIN 3V INDICATIONS: fall/bruising/pain TECHNIQUE: 3 views of the elbow were acquired. COMPARISON: None. FINDINGS: Bones: No fractures or dislocations. No suspicious bony lesions. Soft tissues: No elbow joint effusion. No suspicious soft tissue calcifications. IMPRESSION: No visualized acute fracture or dislocation. However, if clinical concern and/or pain persist, short interval imaging followup in 7-10 days is recommended, as occult injury cannot be definitively excluded. Dictated by: Aicha Wilson M.D. on 10/15/2023 at 16:30 Approved by: Aicha Wilson M.D. on 10/15/2023 at 16:31
--- NOTE | 2023-10-15 15:44 | DI.RAD.S_ITS ---
PROCEDURE: XR HIP W PEL IF DONE LT 2V INDICATIONS: fall/ pain TECHNIQUE: AP pelvis with lateral view(s) of the left hip(s). COMPARISON: None. FINDINGS: Bones: No fractures or dislocations. Pelvic ring appears intact. No suspicious bony lesions. Soft tissues: The visualized bowel gas pattern is normal. No suspicious soft tissue calcifications. IMPRESSION: No visualized acute fracture or dislocation. However, if clinical concern and/or pain persist, short interval imaging followup in 7-10 days is recommended, as occult injury cannot be definitively excluded. Dictated by: Aicha Wilson M.D. on 10/15/2023 at 16:31 Approved by: Aicha Wilson M.D. on 10/15/2023 at 16:31
[2023-10-15 17:55] VITALS: BP 161/83; PULSE 65; RESP 18; O2SAT 98
--- NOTE | 2023-10-15 19:14 | ED_ITS ---
HPI - Fall <Jakub Varner PA-C - Last Filed: 10/15/23 19:18> General Chief Complaint: Fall Stated Complaint: GLF, RT elbow pain Time Seen by Provider: 10/15/23 18:20 History of Present Illness HPI Narrative: 63-year-old female presents to the ED status post a ground level fall sustained just prior to arrival. Patient states that she stepped over a baby gate, suffered a mechanical fall injuring her left elbow and her right hip. Patient is able to bear weight and walk. No head strike or LOC. no other injuries. Patient is not on blood thinners. Related Data Previous Rx's Medication Instructions Recorded oxycodone-acetaminophen 5 mg-325 1 tab PO Q8H PRN pain #1 tab 01/05/22 mg tablet (Percocet) Allergies Allergy/AdvReac Type Severity Reaction Status Date / Time ciprofloxacin [From CIPRO] Allergy Unknown Hives Verified 10/05/20 17:22 Iodinated Contrast Media Allergy Unknown Hives Verified 10/05/20 17:22 Latex, Natural Rubber Allergy Verified 10/05/20 17:22 Review of Systems <Jakub Varner PA-C - Last Filed: 10/15/23 19:18> Constitutional Constitutional: Denies chills, Denies fatigue, Denies fever(s), Denies frequent falls, Denies lethargy and Denies weakness Eyes Eyes: Denies change in vision, Denies eye discharge, Denies irritation and Denies loss of vision ENT Ears, Nose, Mouth, and Throat: Denies change in voice, Denies dizziness, Denies neck pain, Denies sore throat and Denies throat swelling Cardiovascular Cardiovascular: Denies chest pain, Denies irregular heart rhythm, Denies lightheadedness, Denies palpitations, Denies dyspnea, Denies dyspnea on exertion and Denies orthopnea Respiratory Respiratory: Denies cough, Denies dyspnea, Denies dyspnea on exertion and Denies wheezing Gastrointestinal Gastrointestinal: Denies abdominal pain, Denies change in bowel habits, Denies diarrhea, Denies nausea and Denies vomiting Musculoskeletal Musculoskeletal: Denies neck pain and Denies numbness Comments: Right elbow, left hip pain Integumentary/Breasts Skin/Breast: Denies pruritus, Denies erythema, Denies rash and Denies wounds Neurologic Neurologic: Denies behavioral changes, Denies confusion, Denies dizziness, Denies frequent falls, Denies loss of vision, Denies numbness and Denies weakness Psychiatric Psychiatric: Denies anxiety, Denies behavioral changes, Denies confusion, Denies depression, Denies homicidal ideation and Denies suicidal ideation Endocrine Endocrine: Denies fatigue, Denies flushing and Denies palpitations Hematologic/Lymphatic Hematologic/Lymphatic: Denies easy bruising Allergic/Immunologic Allergic/Immunologic: Denies urticaria, Denies throat swelling and Denies wheezing Patient History <Jakub Varner PA-C - Last Filed: 10/15/23 19:18> Medical History Bilateral hydronephrosis Bladder cancer Chronic pain of lower extremity, bilateral Migraine PTSD (post-traumatic stress disorder) Ureteral carcinoma Ureteral duplication, left Surgical History Status post breast lumpectomy Status post hysterectomy (~1989) Social History household members: spouse Smoking Status: Former smoker alcohol intake: current Smoking Status: Former smoker alcohol intake frequency: holidays/special occasions only Substance Use Type: marijuana Exam <Jakub Varner PA-C - Last Filed: 10/15/23 19:18> Narrative Exam Narrative: Const General:?cooperative, healthy appearing and comfortable [facility] Head:?normal to inspection Ears:?hearing grossly normal bilaterally Nose:?external nose normal Face and sinus:?normal facial exam and sinuses nontender Mouth:?oral mucosae normal Throat:?posterior oropharynx normal Eyes General:?appearance normal, both eyes and all related structures Neck Neck:?normal visual inspection and no lymphadenopathy noted Resp Effort & Inspection:?normal respiratory effort Auscultation:?clear to auscultation bilaterally Cardio Rate:?regular rate Rhythm:?regular rhythm Musculoskeletal There is some mild bruising to the proximal forearm, close to the right elbow. No bruising or deformities in the hip region. No tenderness to palpation. Strength and sensation is intact. Patient is able to bear weight and walk. There is full range of motion. Patient is neurovascularly intact. Neuro General:?patient alert, patient awake and patient oriented x3 Initial Vital Signs Initial Vital Signs: Vital Signs Temperature 97.7 F 10/15/23 15:37 Pulse Rate 81 04/09/24 15:37 Respiratory Rate 18 10/15/23 15:37 Blood Pressure 152/63 H 10/15/23 15:37 Pulse Oximetry 96 10/15/23 15:37 Oxygen Delivery Method Room Air 10/15/23 15:37 <Edgar Monahan MD - Last Filed: 10/22/23 09:25> Initial Vital Signs Initial Vital Signs: Vital Signs Temperature 97.7 F 10/15/23 15:37 Pulse Rate 81 10/15/23 15:37 Respiratory Rate 18 10/15/23 15:37 Blood Pressure 152/63 H 10/15/23 15:37 Pulse Oximetry 96 10/15/23 15:37 Oxygen Delivery Method Room Air 10/15/23 15:37 Course <Jakub Varner PA-C - Last Filed: 10/15/23 19:18> Orders Ordered: ED Orders 10/15/23 15:43 XR elbow RT min 3V Stat 10/15/23 15:44 XR hip w pel if done LT 2V Stat Vital Signs Vital signs: Vital Signs - 8 hr 10/15/23 15:37 10/15/23 17:55 Temperature 97.7 F Pulse Rate 81 65 Respiratory Rate 18 18 Blood Pressure 152/63 H 161/83 H Pulse Oximetry 96 98 Oxygen Delivery Method Room Air Room Air <Edgar Monahan MD - Last Filed: 10/22/23 09:25> Orders Ordered: ED Orders 10/15/23 15:43 XR elbow RT min 3V Stat 10/15/23 15:44 XR hip w pel if done LT 2V Stat Vital Signs Vital signs: Vital Signs - 8 hr 10/15/23 15:37 10/15/23 17:55 Temperature 97.7 F Pulse Rate 81 65 Respiratory Rate 18 18 Blood Pressure 152/63 H 161/83 H Pulse Oximetry 96 98 Oxygen Delivery Method Room Air Room Air MDM - Fall <Jakub Varner PA-C - Last Filed: 10/15/23 19:18> MDM Narrative Medical decision making narrative: 63-year-old female presents to the ED status post a ground level fall sustained just prior to arrival. Concern for fracture/dislocation versus musculoskeletal sprain/strain versus other. X-rays were obtained which did not show any acute findings. Discussed findings with patient that her symptoms are most consistent with a musculoskeletal sprain/strain/contusion. Recommend continued Tylenol or hydrocodone that she already has for back pain. Recommend ice, heat. Recommend follow-up with PCP. ED return precautions discussed with patient. Patient verbalized understanding. Medical records reviewed: Yes Discharge Plan Departure Patient Disposition: Home Clinical Impression: Hip pain Qualifiers: Laterality: left Qualified Code(s): M25.552 - Pain in left hip Elbow pain Qualifiers: Laterality: right Qualified Code(s): M25.521 - Pain in right elbow Instructions: How to Prevent Falls Activity Restrictions/Additional Instructions: You were evaluated in the ED today for some injuries from a fall. Your x-rays were normal and did not show any fractures or dislocations. It appears that your symptoms are as a result of contusion,musculoskeletal sprain/strain. You may continue to take Tylenol or hydrocodone for pain control. Ice or heat might help as well. Please follow-up with your PCP as soon as possible. Return to the ED if you have worsening symptoms, numbness, tingling, weakness. Prescriptions: No Action oxycodone-acetaminophen [Percocet] 5-325 mg tablet 1 tab PO Q8H PRN (Reason: pain) Qty: 1 0RF Referrals: Sherry Flores MD [Primary Care Provider] - Stand Alone Forms: Patient Portal/API ED Sign-out <Edgar Monahan MD - Last Filed: 10/22/23 09:25> Cosign ED Attending Ashlee Attestation: I was immediately available in the department for consultation. ?This documentation has been reviewed and I agree with assessment and plan. Supervised by Edgar Monahan MD
== END 2023-10-15 18:53 | disposition home or self-care (01) ==
PROVIDERS: Emergency Provider Student in an Organized Health Care Education/Training Program; PCP Internal Medicine
DX: M25.552 Pain in left hip (principal); M25.521 Pain in right elbow; W18.30XA Fall on same level, unspecified, initial encounter
CPT/HCPCS: 73080; 73502; 99283

== ENCOUNTER → 2024-03-04 10:52 | Outpatient (CLI) | payer MEDICARE, OTHER, SELFPAY ==
--- NOTE | 2024-03-04 | DI.CT.S_ITS ---
PROCEDURE: CT CHEST WO CON INDICATIONS: Malignant neoplasm of right ureter TECHNIQUE: Noncontrast 5 mm thick sections acquired from the pulmonary apices to the posterior costophrenic angles. 1 mm lung window, 5 mm thick coronal and sagittal and 7 mm axial MIP reformats were then acquired. For radiation dose reduction, the following was used: automated exposure control, adjustment of mA and/or kV according to patient size. COMPARISON: [facility], CT, CT CHEST ABD PEL W CON, 06/06/2021, 10:40. FINDINGS: Image quality: Diagnostic. Lower Neck: No enlarged lymph nodes. Thyroid: No thyroid nodules which require sonographic follow up, per consensus guidelines. Axillae: No enlarged lymph nodes. Chest Wall: Unremarkable. Bones: Unremarkable. Lungs and Pleura: No pneumothorax or pleural effusions. Stable solid pulmonary nodules compared with 06/06/2021. Examples include: -5 mm juxtapleural nodule, right middle lobe (series 3, image 171). -3-4 mm solid nodule, lingula (series 3, image 204). -juxtapleural nodules along the left major fissure. Heart: Heart size is normal. No pericardial effusion. Thoracic Vessels: The aorta and pulmonary arteries demonstrate normal size. Mediastinum and Janet: No enlarged lymph nodes. Esophagus: No wall thickening. No hiatal hernia. Upper Abdomen: Subcentimeter left angiomyolipoma. Hepatic steatosis. IMPRESSION: No evidence of metastatic disease in the chest. Dictated by: Colby Rodriguez M.D. on 03/04/2024 at 16:33 Approved by: Colby Rodriguez M.D. on 03/04/2024 at 16:36
--- NOTE | 2024-03-04 | DI.CT.S_ITS ---
PROCEDURE: CT ABDOMEN PELVIS WO/W CON INDICATIONS: Malignant neoplasm of right ureter TECHNIQUE: Optional 5 mm thick noncontrast images acquired from the diaphragm to the symphysis pubis. After the administration of intravenous contrast, 5 mm thick images acquired from the diaphragm to the symphysis pubis after a 10-minute delay. 2 mm thick coronal and sagittal reformats were then performed of the kidneys and ureters. For radiation dose reduction, the following was used: automated exposure control, adjustment of mA and/or kV according to patient size. COMPARISON: [facility], CT, CT CHEST ABD PEL W CON, 09/11/2023, 10:08. FINDINGS: Image quality: Diagnostic. Kidneys and Ureters: Right nephrectomy. The left kidney is normal in size, without hydronephrosis or nephrolithiasis. No perinephric fat stranding. There is normal renal enhancement. Left renal calices appear normal in morphology when filled with contrast. Opacified portions of the left ureter demonstrate normal caliber . Left-sided renal sinus cysts. No complex renal cystic lesions which require follow-up. 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 Bladder: Bladder wall thickness is normal. No calcified bladder stones. OTHER: Lower chest: Separately dictated. Liver: No solid mass. Gallbladder: No radiopaque gallstones or wall thickening. Biliary ducts: No biliary dilation. Pancreas: No ductal dilation. Spleen: Size is within normal limits. Adrenal Glands: No adrenal nodules. Stable hypertrophy of the left adrenal gland period Stomach and Bowel: Normal colonic caliber, without significant wall thickening. Colonic diverticulosis without evidence of diverticulitis. Peritoneum: No abnormal intraperitoneal fluid. No free air. Ventral Wall: No hernia. Abdominal Nodes: No retroperitoneal or mesenteric adenopathy by size criteria. Vessels: Aorta and inferior vena cava are normal in size. PELVIS: Pelvic Organs: Unremarkable. Pelvic Nodes: No enlarged lymph nodes. Miscellaneous: No inguinal hernias are seen. Bones: No aggressive osseous abnormality. Degenerative disc disease of the lumbar spine. IMPRESSION: Right nephrectomy without measurable disease. Dictated by: Colby Rodriguez M.D. on 03/04/2024 at 16:37 Approved by: Colby Rodriguez M.D. on 03/04/2024 at 16:40
[2024-03-04 11:32] LABS: Estimated Glomerular Filt Rate > 60 mL/min (>60)
== END ==
PROVIDERS: Radiology Diagnostic Radiology; PCP Internal Medicine; Referring Provider Urology; Visit Provider Urology
DX: C66.1 Malignant neoplasm of right ureter (principal); Z90.5 Acquired absence of kidney
CPT/HCPCS: 36415; 71250; 74178; 82565; Q9967

== ENCOUNTER → 2024-06-13 09:57 | Outpatient (CLI) | payer MEDICARE, OTHER, SELFPAY ==
--- NOTE | 2024-06-13 | DI.MG.S_ITS ---
BILATERAL DIGITAL SCREENING MAMMOGRAM 3D/2D WITH CAD: 06/13/2024 CLINICAL: Routine screening. Family history of breast cancer. Comparison is made to exams dated: 06/05/2023 mammogram, 09/27/2021 mammogram, and 04/20/2020 mammogram - [facility]. There are scattered areas of fibroglandular density (category b / 25%-50% glandular tissue). Current study was also evaluated with a Computer Aided Detection (CAD) system. No significant masses, calcifications, or other findings are seen in either breast. There has been no significant interval change. IMPRESSION: NEGATIVE There is no mammographic evidence of malignancy. A 1 year screening mammogram is recommended. Based on the Tyrer Cuzick model (a risk assessment model) the patient's lifetime risk is 13.3% and her 10 year risk is 6.5%. According to the ACR, ACS, and NCCN guidelines, an annual breast MRI exam along with mammogram is recommended if the patient's lifetime risk is 20% or greater. This exam was interpreted at Station ID: [id number]. NOTE: For mammograms, a report in lay terms will be sent to the patient. Approximately 15% of breast malignancies will not be visualized mammographically. In the management of a palpable breast mass, a negative mammogram must not discourage biopsy of a clinically suspicious lesion. Electronically Signed By: Tex holman/reji:06/15/2024 07:26:38 letter sent: Normal Exam ACR BI-RADS Category 1: Negative
== END ==
PROVIDERS: PCP Family Medicine; Referring Provider Family Medicine; Visit Provider Family Medicine
DX: Z12.31 Encounter for screening mammogram for malignant neoplasm of breast (principal); Z80.3 Family history of malignant neoplasm of breast
CPT/HCPCS: 77063; 77067

== ENCOUNTER → 2024-08-23 10:29 | Outpatient (CLI) | payer MEDICARE, OTHER, SELFPAY ==
--- NOTE | 2024-08-23 10:31 | DI.MRI.S_ITS ---
PROCEDURE: MR LUMBAR SPINE WO CON INDICATIONS: LUMBAR SPONDYLOSIS TECHNIQUE: Noncontrast sagittal T1 spin echo and T2 fast echo, sagittal STIR, and T2 fast spin echo through the lumbar spine. In cases with scoliosis, additional coronal T2 fast spin echo may be performed. COMPARISON: [facility], MR, MR LUMBAR SPINE WO CON, 01/05/2022, 8:19. FINDINGS: Image quality: Excellent. Alignment and Curvature: Trace retrolisthesis of L5 on S1, as before. Bone Marrow: Marrow is of normal overall signal. No acute vertebral body compression fractures. Spinal Cord: Conus medullaris terminates at the L1 level. Visualized cord demonstrates normal signal and size. Paraspinous Soft Tissues: No paravertebral masses. T12-L1: Disc bulge. No canal stenosis or foraminal stenosis. L1-L2: Disc bulge. Mild facet hypertrophy. No canal stenosis or foraminal stenosis. L2-L3: Disc bulge. Facet hypertrophy. No canal stenosis or foraminal stenosis. L3-L4: Slight interval progression. Disc bulge. Facet hypertrophy. Increased epidural lipomatosis. Abfm-za-[id number] canal stenosis. Reference sagittal image 10 of series 2 and axial image 20 of series 6. No significant foraminal stenosis. L4-L5: Unchanged findings. Disc bulge. Facet and ligament hypertrophy. No significant canal stenosis or foraminal stenosis. L5-S1: Unchanged findings. Chronic disc height loss. Trace retrolisthesis. Facet hypertrophy. No significant canal stenosis or foraminal stenosis. IMPRESSION: 1. Underlying multilevel facet arthropathy. 2. Slight interval progression of findings at L3-L4 secondary to increased epidural lipomatosis. There is [id number]-dl-[id number] canal stenosis. Dictated by: Eric Hope M.D. on 08/24/2024 at 9:04 Approved by: Eric Hope M.D. on 08/24/2024 at 9:08
== END ==
PROVIDERS: PCP Family Medicine; Referring Provider Acupuncturist; Visit Provider Acupuncturist
DX: M47.816 Spondylosis without myelopathy or radiculopathy, lumbar region (principal); M47.817 Spondylosis without myelopathy or radiculopathy, lumbosacral region; M48.061 Spinal stenosis, lumbar region without neurogenic claudication
CPT/HCPCS: 72148

== ENCOUNTER → 2025-01-26 13:22 | Outpatient (CLI) | payer MEDICARE, OTHER, SELFPAY ==
--- NOTE | 2025-01-26 13:25 | DI.CT.S_ITS ---
PROCEDURE: CT CHEST WO CON INDICATIONS: ureteral carcinoma TECHNIQUE: Noncontrast 5 mm thick sections acquired from the pulmonary apices to the posterior costophrenic angles. 1 mm lung window, 5 mm thick coronal and sagittal and 7 mm axial MIP reformats were then acquired. For radiation dose reduction, the following was used: automated exposure control, adjustment of mA and/or kV according to patient size. COMPARISON: [facility], CT, CT ABDOMEN PELVIS WO/W CON, 01/26/2025, 14:33. [facility], CT, CT CHEST W CON, 05/24/2023, 14:42. [facility], CT, CT CHEST WO CON, 03/04/2024, 11:56. FINDINGS: Image quality: Diagnostic. Lower Neck: No enlarged lymph nodes. Thyroid: No thyroid nodules which require sonographic follow up, per consensus guidelines. Axillae: No enlarged lymph nodes. Chest Wall: Unremarkable. Bones: No suspicious osseous lesion. Lungs and Pleura: No pneumothorax or pleural effusions. No acute airspace opacity. Airways are clear. A few small pulmonary nodules unchanged since at least 2022. For example: -Right minor fissure 0.5 cm, (3/165), unchanged. -Left lingula 0.5 cm, (3/197), unchanged. No new pulmonary nodules. Heart: Heart size is normal. No pericardial effusion. Thoracic Vessels: The aorta and pulmonary arteries demonstrate normal size. Mediastinum and Janet: No enlarged lymph nodes. Esophagus: No wall thickening. No hiatal hernia. Upper Abdomen: Probable mild hepatic steatosis. Left renal collecting system partially visualized appears prominent as before. Previously attributed to peripelvic cysts. Minimal thickening of the left adrenal gland. IMPRESSION: No new or enlarging pulmonary nodules. A few small pulmonary nodules measuring 0.5 cm or less are unchanged since at least 2022. Favor benign etiology. Dictated by: Tereso Marshall M.D. on 01/27/2025 at 10:51 Approved by: Tereso Marshall M.D. on 01/27/2025 at 11:02
--- NOTE | 2025-01-26 13:25 | DI.RAD.S_ITS ---
PROCEDURE: XR DEXA AXIAL SKELETON INDICATIONS: bone density screening COMPARISON: None. FINDINGS: Lumbar Spine: Bone mineral density 1.121 g/cm2, T score 0.7, normal. Left Femoral Neck: Bone mineral density 0.789 g/cm2, T score -0.5. Left Hip: Bone mineral density 1.041 g/cm2, T score 0.8, normal. Fracture Risk Calculation (when applicable): 10-year fracture risk of a major osteoporotic fracture 7.0 percent and of a hip fracture 0.4 percent. (T score greater or equal to -1.0 to: NORMAL) (T score from -1.1 to -2.4: OSTEOPENIA) (T score less than or equal to -2.5: OSTEOPOROSIS) IMPRESSION: Normal bone mineralization Follow-up guidelines as follows: Osteoporosis: Consider a repeat DEXA and Vertebral Fracture Assessment (VFA) exam in 2 years or sooner if medically necessary, to reassess this patient's status. Osteopenia: Consider a repeat DEXA in 2-3 years to reassess this patient's status, or if there is a new clinical indication. Normal: Consider a repeat DEXA in 5 years or sooner, or if there is a new clinical indication. All treatment decisions require clinical judgment and consideration of individual patient factors, including patient preferences, comorbidities, previous drug use, risk factors not captured in the FRAX model (e.g., frailty, falls, vitamin D deficiency, increased bone turnover, interval significant decline in bone density ) and possible under- or over-estimation of fracture risk by FRAX. In addition, the NOF Guide recommends that FDA-approved medical therapies be considered in postmenopausal women and men age >= 50 years with a: * Hip or vertebral (clinical or morphometric) fracture * T-score of <=-2.5 at the spine or hip * Ten-year fracture probability by FRAX of >= 3% for hip fracture or >=20% for major osteoporotic fracture. Approved by: Bob Palacio M.D. on 01/27/2025 at 15:01
--- NOTE | 2025-01-26 13:25 | DI.CT.S_ITS ---
PROCEDURE: CT ABDOMEN PELVIS WO/W CON INDICATIONS: ureteral carcinoma TECHNIQUE: After the administration of oral contrast, 5 mm thick sections acquired from the diaphragms to the iliac crests. After the administration of intravenous contrast, 5 mm thick sections acquired from the diaphragms to the symphysis. 5 mm thick coronal and sagittal reformats were acquired. For radiation dose reduction, the following was used: automated exposure control, adjustment of mA and/or kV according to patient size. COMPARISON: [facility], CT, CT ABDOMEN PELVIS WO/W CON, 03/04/2024, 11:56. FINDINGS: Image quality: Diagnostic. Lower Chest: No significant findings. ABDOMEN: Liver: No solid mass. Gallbladder: No radiopaque gallstones or wall thickening. Biliary ducts: No biliary dilation. Pancreas: No ductal dilation. Spleen: Size is within normal limits. Adrenal Glands: No adrenal nodules. Kidneys and Ureters: Status post right nephrectomy with no evidence of local tumor recurrence. The left kidney is normal in size and contour without hydronephrosis. There is an extrarenal pelvis on the left with multiple parapelvic cysts similar to prior imaging. An 8 mm angiomyolipoma is again demonstrated. Stomach and Bowel: Normal colonic caliber, without significant wall thickening. Normal appendix. Peritoneum: No abnormal intraperitoneal fluid. No free air. Ventral Wall: No significant ventral hernia. Abdominal Nodes: No retroperitoneal or mesenteric adenopathy by size criteria. Vessels: Aorta and inferior vena cava are normal in size. PELVIS: Pelvic Organs: Unremarkable. Bladder: No bladder wall thickening, accounting for underdistention. Pelvic Nodes: No enlarged lymph nodes. Miscellaneous: No inguinal hernias are seen. Bones: No aggressive osseous abnormality. Moderate degenerative disc disease. IMPRESSION: Right nephrectomy with no significant or acute findings of the abdomen and pelvis compared with prior imaging on 03/04/2024. Dictated by: Daylin Romero M.D. on 01/26/2025 at 15:34 Approved by: Daylin Romero M.D. on 01/26/2025 at 15:39
[2025-01-26 13:56] LABS: Estimated Glomerular Filt Rate > 60 mL/min (>60)
== END ==
PROVIDERS: PCP Family Medicine; Referring Provider Urology; Visit Provider Urology
DX: Z08 Encounter for follow-up examination after completed treatment for malignant neoplasm (principal); C66.1 Malignant neoplasm of right ureter; Z78.0 Asymptomatic menopausal state; Z91.89 Other specified personal risk factors, not elsewhere classified; R39.89 Other symptoms and signs involving the genitourinary system; R91.8 Other nonspecific abnormal finding of lung field; Z85.51 Personal history of malignant neoplasm of bladder; Z20.3 Contact with and (suspected) exposure to rabies; Z90.5 Acquired absence of kidney
CPT/HCPCS: 36415; 71250; 74178; 77080; 82565; Q9967